=== PATIENT | male | born 1950 | race Caucasian/White ===

== ENCOUNTER 2017-10-27 03:23 | Emergency (ER) | payer MEDICARE, MEDICAID, SELFPAY | END 2017-10-27 04:37 | disposition home or self-care (01) | PROVIDERS: Emergency Provider Emergency Medicine; Visit Provider Emergency Medicine | DX: J40 Bronchitis, not specified as acute or chronic (principal); I10 Essential (primary) hypertension; E11.9 Type 2 diabetes mellitus without complications; Z79.899 Other long term (current) drug therapy | CPT/HCPCS: 87275; 87276; 99282 ==

== ENCOUNTER 2017-12-07 06:25 | Emergency (ER) | payer MEDICARE, SELFPAY ==
[2017-12-07 06:59] VITALS: BP 184/87; PULSE 82; RESP 18; TEMP 36.9; O2SAT 94; BMI 30.4
== END 2017-12-07 07:49 | disposition left against medical advice (07) ==
PROVIDERS: Emergency Provider Emergency Medicine; Family Provider Internal Medicine Adolescent Medicine
DX: Z53.29 Procedure and treatment not carried out because of patient's decision for other reasons (principal)
CPT/HCPCS: 99211; 99282

== ENCOUNTER → 2017-12-18 09:55 | Outpatient (CLI) | payer MEDICARE, SELFPAY ==
[2017-12-18 11:31] LABS: Basophils % 1.2 % (0.1-2.0); Eosinophils # 0.3 K/mm3 (0.0-0.4); Hematocrit 28.9 % (42.0-52.0); Hemoglobin 9.6 g/dL (14.1-18.0); Lymphocytes # 0.7 K/mm3 (0.7-4.5); Lymphocytes % 18.7 K/mm3 (10-50); Mean Corpuscular HGB Conc 33.2 g/dL (31.8-35.4); Mean Corpuscular Hemoglobin 36.7 pg (27.0-31.2); Mean Corpuscular Volume 110.5 fl (80-94); Mean Platelet Volume 8.9 fl (7.4-10.4); Monocytes # 0.3 K/mm3 (0.1-1.0); Monocytes % 9.2 % (1.7-9.3); Neutrophils # 2.2 K/mm3 (1.8-7.8); Neutrophils % 62.9 % (37.0-80.0); Platelet Count 258 K/mm3 (142-424); Red Blood Count 2.61 M/mm3 (4.60-6.20); Red Cell Distribution Width 18.9 % (11.5-17.5); White Blood Count 3.5 K/mm3 (4.8-10.8)
== END ==
PROVIDERS: PCP Internal Medicine Adolescent Medicine; Visit Provider Internal Medicine Hematology & Oncology
DX: D61.818 Other pancytopenia (principal)
CPT/HCPCS: 36415; 85025

== ENCOUNTER → 2018-01-12 11:38 | Outpatient (CLI) | payer MEDICARE, SELFPAY ==
[2018-01-12 12:04] LABS: Basophils % 0.8 % (0.1-2.0); Eosinophils # 0.1 K/mm3 (0.0-0.4); Eosinophils % 3.3 % (0.1-12.0); Hematocrit 30.3 % (42.0-52.0); Hemoglobin 9.9 g/dL (14.1-18.0); Lymphocytes # 0.7 K/mm3 (0.7-4.5); Lymphocytes % 21.2 K/mm3 (10-50); Mean Corpuscular HGB Conc 32.6 g/dL (31.8-35.4); Mean Corpuscular Hemoglobin 36.7 pg (27.0-31.2); Mean Corpuscular Volume 112.8 fl (80-94); Mean Platelet Volume 9.1 fl (7.4-10.4); Monocytes # 0.4 K/mm3 (0.1-1.0); Monocytes % 10.3 % (1.7-9.3); Neutrophils # 2.2 K/mm3 (1.8-7.8); Neutrophils % 64.4 % (37.0-80.0); Platelet Count 277 K/mm3 (142-424); Red Blood Count 2.69 M/mm3 (4.60-6.20); Red Cell Distribution Width 19.1 % (11.5-17.5); White Blood Count 3.4 K/mm3 (4.8-10.8)
== END ==
PROVIDERS: PCP Internal Medicine Adolescent Medicine; Visit Provider Internal Medicine Hematology & Oncology
DX: D61.818 Other pancytopenia (principal)
CPT/HCPCS: 36415; 85025

== ENCOUNTER → 2018-03-02 09:01 | Outpatient (CLI) | payer MEDICARE, SELFPAY ==
[2018-03-02 09:52] LABS: Basophils % 1.4 % (0.1-2.0); Eosinophils # 0.1 K/mm3 (0.0-0.4); Eosinophils % 4.5 % (0.1-12.0); Hematocrit 27.8 % (42.0-52.0); Hemoglobin 9.5 g/dL (14.1-18.0); Lymphocytes # 0.6 K/mm3 (0.7-4.5); Lymphocytes % 20.8 K/mm3 (10-50); Mean Corpuscular HGB Conc 34.2 g/dL (31.8-35.4); Mean Corpuscular Hemoglobin 38.1 pg (27.0-31.2); Mean Corpuscular Volume 111.6 fl (80-94); Mean Platelet Volume 8.4 fl (7.4-10.4); Monocytes # 0.3 K/mm3 (0.1-1.0); Monocytes % 9.7 % (1.7-9.3); Neutrophils # 1.8 K/mm3 (1.8-7.8); Neutrophils % 63.7 % (37.0-80.0); Platelet Count 283 K/mm3 (142-424); Red Cell Distribution Width 19.2 % (11.5-17.5); White Blood Count 2.8 K/mm3 (4.8-10.8)
== END ==
PROVIDERS: Visit Provider Internal Medicine Hematology & Oncology
DX: D61.818 Other pancytopenia (principal)
CPT/HCPCS: 36415; 85025

== ENCOUNTER → 2018-03-17 10:16 | Outpatient (CLI) | payer MEDICARE, SELFPAY ==
[2018-03-17 10:58] LABS: Basophils % 1.6 % (0.1-2.0); Eosinophils # 0.1 K/mm3 (0.0-0.4); Hematocrit 25.1 % (42.0-52.0); Hemoglobin 8.7 g/dL (14.1-18.0); Lymphocytes # 0.5 K/mm3 (0.7-4.5); Lymphocytes % 19.1 K/mm3 (10-50); Mean Corpuscular HGB Conc 34.6 g/dL (31.8-35.4); Mean Corpuscular Hemoglobin 38.2 pg (27.0-31.2); Mean Corpuscular Volume 110.2 fl (80-94); Mean Platelet Volume 8.9 fl (7.4-10.4); Monocytes # 0.3 K/mm3 (0.1-1.0); Neutrophils # 1.8 K/mm3 (1.8-7.8); Neutrophils % 66.2 % (37.0-80.0); Platelet Count 255 K/mm3 (142-424); Red Blood Count 2.28 M/mm3 (4.60-6.20); Red Cell Distribution Width 20.1 % (11.5-17.5); White Blood Count 2.7 K/mm3 (4.8-10.8)
[2018-03-17 12:43] LABS: Alanine Aminotransferase 57 U/L (12-78); Albumin Level 3.6 gm/dL (3.4-5.0); Albumin/Globulin Ratio 1.5 (1.1-1.8); Alkaline Phosphatase 122 U/L (46-116); Aspartate Amino Transferase 40 U/L (15-37); Bilirubin,Total 0.8 mg/dL (0.2-1.0); Blood Urea Nitrogen 11 mg/dL (7-18); Calcium 8.7 mg/dL (8.5-10.1); Carbon Dioxide 29 mmol/L (21.0-32.0); Chol/HDL Ratio 6.1 (1-3.5); Cholesterol 128 mg/dL (140-200); Creatinine,Serum 0.86 mg/dL (0.70-1.30); Estimated Glomerular Filt Rate 89 ml/min (>60); GFR (African American) 107 ML/MIN (>60); Globulin 2.4 gm/dl (1.3-3.2); Glucose 115 mg/dL (74-106); HDL Cholesterol 21 mg/dL (27-67); LDL Cholesterol 62 mg/dL (0-130); Triglycerides 225 mg/dL (30-200); VLDL Cholesterol 45 mg/dL (0-40)
[2018-03-17 13:21] LABS: Anion Gap 12.4 mEq/L (5-15); Chloride 101 mmol/L (98-107); Potassium 4.4 mmoL/L (3.5-5.1); Sodium 138 mmol/L (136-145)
[2018-03-18 13:52] LABS: Vitamin B12 617 pg/mL (232-1245); Vitamin D 25 Hydroxy 18.5 ng/mL (30.0-100.0)
== END ==
PROVIDERS: Visit Provider Nurse Practitioner Family
DX: E53.8 Deficiency of other specified B group vitamins (principal); E78.5 Hyperlipidemia, unspecified; E55.9 Vitamin D deficiency, unspecified; D59.1 Other autoimmune hemolytic anemias; D61.818 Other pancytopenia; I10 Essential (primary) hypertension
CPT/HCPCS: 36415; 80053; 80061; 82607; 82652; 85025

== ENCOUNTER → 2018-03-21 07:19 | Outpatient (CLI) | payer MEDICARE, SELFPAY ==
[2018-03-21 07:59] LABS: Basophils % 1.1 % (0.1-2.0); Eosinophils # 0.2 K/mm3 (0.0-0.4); Eosinophils % 5.8 % (0.1-12.0); Hematocrit 25.7 % (42.0-52.0); Hemoglobin 8.9 g/dL (14.1-18.0); Lymphocytes # 0.5 K/mm3 (0.7-4.5); Mean Corpuscular HGB Conc 34.6 g/dL (31.8-35.4); Mean Corpuscular Hemoglobin 38.5 pg (27.0-31.2); Mean Corpuscular Volume 111.1 fl (80-94); Mean Platelet Volume 8.7 fl (7.4-10.4); Monocytes # 0.2 K/mm3 (0.1-1.0); Monocytes % 9.7 % (1.7-9.3); Neutrophils # 1.6 K/mm3 (1.8-7.8); Neutrophils % 63.5 % (37.0-80.0); Platelet Count 268 K/mm3 (142-424); Red Blood Count 2.32 M/mm3 (4.60-6.20); Red Cell Distribution Width 20.2 % (11.5-17.5); White Blood Count 2.5 K/mm3 (4.8-10.8)
== END ==
PROVIDERS: Visit Provider Internal Medicine Hematology & Oncology
DX: D61.818 Other pancytopenia (principal)
CPT/HCPCS: 36415; 85025

== ENCOUNTER → 2018-03-25 17:02 | Outpatient (CLI) | payer MEDICARE, SELFPAY ==
[2018-03-25 17:25] LABS: Basophils # 0.1 K/mm3 (0-0.2); Basophils % 1.7 % (0.1-2.0); Eosinophils # 0.1 K/mm3 (0.0-0.4); Eosinophils % 3.4 % (0.1-12.0); Hemoglobin 8.4 g/dL (14.1-18.0); Lymphocytes # 0.6 K/mm3 (0.7-4.5); Lymphocytes % 18.5 K/mm3 (10-50); Mean Corpuscular HGB Conc 33.6 g/dL (31.8-35.4); Mean Corpuscular Hemoglobin 37.6 pg (27.0-31.2); Mean Corpuscular Volume 111.8 fl (80-94); Mean Platelet Volume 9.1 fl (7.4-10.4); Monocytes # 0.3 K/mm3 (0.1-1.0); Monocytes % 8.1 % (1.7-9.3); Neutrophils # 2.3 K/mm3 (1.8-7.8); Neutrophils % 68.4 % (37.0-80.0); Platelet Count 252 K/mm3 (142-424); Red Blood Count 2.23 M/mm3 (4.60-6.20); Red Cell Distribution Width 20.2 % (11.5-17.5); White Blood Count 3.3 K/mm3 (4.8-10.8)
[2018-03-25 17:31] LABS: Hematocrit 24.9 % (42.0-52.0)
== END ==
PROVIDERS: Visit Provider Internal Medicine Hematology & Oncology
DX: D61.818 Other pancytopenia (principal)
CPT/HCPCS: 36415; 85025

== ENCOUNTER → 2018-04-18 08:13 | Outpatient (CLI) | payer MEDICARE, SELFPAY ==
[2018-04-18 08:46] LABS: Basophils % 0.9 % (0.1-2.0); Eosinophils # 0.1 K/mm3 (0.0-0.4); Eosinophils % 2.3 % (0.1-12.0); Hematocrit 29.8 % (42.0-52.0); Hemoglobin 9.4 g/dL (14.1-18.0); Lymphocytes # 0.6 K/mm3 (0.7-4.5); Lymphocytes % 14.9 K/mm3 (10-50); Mean Corpuscular HGB Conc 31.4 g/dL (31.8-35.4); Mean Corpuscular Volume 114.7 fl (80-94); Mean Platelet Volume 8.7 fl (7.4-10.4); Monocytes # 0.4 K/mm3 (0.1-1.0); Monocytes % 8.9 % (1.7-9.3); Platelet Count 299 K/mm3 (142-424); Red Cell Distribution Width 20.4 % (11.5-17.5); White Blood Count 4.2 K/mm3 (4.8-10.8)
== END ==
PROVIDERS: Visit Provider Internal Medicine Hematology & Oncology
DX: D61.818 Other pancytopenia (principal)
CPT/HCPCS: 36415; 85025; 85060

== ENCOUNTER → 2018-05-19 10:18 | Outpatient (CLI) | payer MEDICARE, SELFPAY ==
[2018-05-19 10:43] LABS: Basophils # 0.1 K/mm3 (0-0.2); Basophils % 1.6 % (0.1-2.0); Eosinophils # 0.1 K/mm3 (0.0-0.4); Eosinophils % 3.1 % (0.1-12.0); Hematocrit 28.6 % (42.0-52.0); Lymphocytes # 0.5 K/mm3 (0.7-4.5); Mean Corpuscular HGB Conc 31.5 g/dL (31.8-35.4); Mean Corpuscular Hemoglobin 36.3 pg (27.0-31.2); Mean Corpuscular Volume 115.3 fl (80-94); Mean Platelet Volume 9.2 fl (7.4-10.4); Monocytes # 0.3 K/mm3 (0.1-1.0); Monocytes % 11.2 % (1.7-9.3); Neutrophils # 1.9 K/mm3 (1.8-7.8); Neutrophils % 66.1 % (37.0-80.0); Platelet Count 277 K/mm3 (142-424); Red Blood Count 2.48 M/mm3 (4.60-6.20); Red Cell Distribution Width 19.7 % (11.5-17.5); White Blood Count 2.9 K/mm3 (4.8-10.8)
== END ==
PROVIDERS: Visit Provider Internal Medicine Hematology & Oncology
DX: D61.818 Other pancytopenia (principal)
CPT/HCPCS: 36415; 85025

== ENCOUNTER → 2018-05-30 08:18 | Outpatient (CLI) | payer MEDICARE, SELFPAY ==
[2018-05-30 08:52] LABS: Basophils % 1.1 % (0.1-2.0); Eosinophils # 0.1 K/mm3 (0.0-0.4); Eosinophils % 4.3 % (0.1-12.0); Hematocrit 26.3 % (42.0-52.0); Hemoglobin 8.7 g/dL (14.1-18.0); Lymphocytes # 0.5 K/mm3 (0.7-4.5); Lymphocytes % 18.2 K/mm3 (10-50); Mean Corpuscular HGB Conc 33.2 g/dL (31.8-35.4); Mean Corpuscular Hemoglobin 37.9 pg (27.0-31.2); Mean Corpuscular Volume 113.9 fl (80-94); Mean Platelet Volume 8.3 fl (7.4-10.4); Monocytes # 0.3 K/mm3 (0.1-1.0); Monocytes % 11.2 % (1.7-9.3); Neutrophils # 1.9 K/mm3 (1.8-7.8); Neutrophils % 65.1 % (37.0-80.0); Platelet Count 280 K/mm3 (142-424); Red Blood Count 2.31 M/mm3 (4.60-6.20); Red Cell Distribution Width 20.7 % (11.5-17.5); White Blood Count 2.9 K/mm3 (4.8-10.8)
== END ==
PROVIDERS: Visit Provider Internal Medicine Hematology & Oncology
DX: D61.818 Other pancytopenia (principal)
CPT/HCPCS: 36415; 85025

== ENCOUNTER → 2018-06-06 13:32 | Outpatient (CLI) | payer MEDICARE, SELFPAY ==
[2018-06-06 14:02] LABS: Basophils # 0.1 K/mm3 (0-0.2); Basophils % 1.6 % (0.1-2.0); Eosinophils # 0.1 K/mm3 (0.0-0.4); Eosinophils % 2.5 % (0.1-12.0); Hematocrit 25.2 % (42.0-52.0); Hemoglobin 8.3 g/dL (14.1-18.0); Lymphocytes # 0.6 K/mm3 (0.7-4.5); Lymphocytes % 18.4 K/mm3 (10-50); Mean Corpuscular HGB Conc 33.2 g/dL (31.8-35.4); Mean Corpuscular Hemoglobin 38.5 pg (27.0-31.2); Mean Corpuscular Volume 116.1 fl (80-94); Mean Platelet Volume 8.9 fl (7.4-10.4); Monocytes # 0.4 K/mm3 (0.1-1.0); Monocytes % 12.2 % (1.7-9.3); Neutrophils # 2.1 K/mm3 (1.8-7.8); Neutrophils % 65.4 % (37.0-80.0); Platelet Count 250 K/mm3 (142-424); Red Blood Count 2.17 M/mm3 (4.60-6.20); Red Cell Distribution Width 20.5 % (11.5-17.5); White Blood Count 3.2 K/mm3 (4.8-10.8)
== END ==
PROVIDERS: Visit Provider Internal Medicine Hematology & Oncology
DX: D46.20 Refractory anemia with excess of blasts, unspecified (principal); D61.818 Other pancytopenia
CPT/HCPCS: 36415; 85025

== ENCOUNTER → 2018-06-08 10:54 | Outpatient (CLI) | payer MEDICARE, SELFPAY ==
[2018-06-08 11:35] LABS: Eosinophils # 0.1 K/mm3 (0.0-0.4); Eosinophils % 3.7 % (0.1-12.0); Hematocrit 26.5 % (42.0-52.0); Hemoglobin 8.7 g/dL (14.1-18.0); Lymphocytes # 0.4 K/mm3 (0.7-4.5); Lymphocytes % 17.4 K/mm3 (10-50); Mean Corpuscular HGB Conc 32.9 g/dL (31.8-35.4); Mean Corpuscular Volume 115.4 fl (80-94); Mean Platelet Volume 8.8 fl (7.4-10.4); Monocytes # 0.3 K/mm3 (0.1-1.0); Neutrophils # 1.7 K/mm3 (1.8-7.8); Neutrophils % 67.9 % (37.0-80.0); Platelet Count 235 K/mm3 (142-424); Red Cell Distribution Width 20.6 % (11.5-17.5); White Blood Count 2.5 K/mm3 (4.8-10.8)
[2018-06-08 14:26] LABS: Hemoglobin A1C 4.9 % (0.0-7.0)
[2018-06-08 14:45] LABS: Alanine Aminotransferase 49 U/L (12-78); Albumin Level 3.7 gm/dL (3.4-5.0); Albumin/Globulin Ratio 1.5 (1.1-1.8); Alkaline Phosphatase 128 U/L (46-116); Anion Gap 9.7 mEq/L (5-15); Aspartate Amino Transferase 31 U/L (15-37); Bilirubin,Total 0.8 mg/dL (0.2-1.0); Blood Urea Nitrogen 7 mg/dL (7-18); Calcium 8.3 mg/dL (8.5-10.1); Carbon Dioxide 28 mmol/L (21.0-32.0); Chloride 107 mmol/L (98-107); Chol/HDL Ratio 5.8 (1-3.5); Cholesterol 121 mg/dL (140-200); Creatinine,Serum 0.96 mg/dL (0.70-1.30); Estimated Glomerular Filt Rate 78 ml/min (>60); GFR (African American) 95 ML/MIN (>60); Globulin 2.4 gm/dl (1.3-3.2); Glucose 118 mg/dL (74-106); HDL Cholesterol 21 mg/dL (27-67); LDL Cholesterol 58 mg/dL (0-130); Potassium 4.7 mmoL/L (3.5-5.1); Sodium 140 mmol/L (136-145); Total Protein,Serum 6.1 gm/dL (6.4-8.2); Triglycerides 209 mg/dL (30-200); VLDL Cholesterol 42 mg/dL (0-40)
[2018-06-09 16:43] LABS: Vitamin B12 543 pg/mL (232-1245); Vitamin D 25 Hydroxy 25.4 ng/mL (30.0-100.0)
== END ==
PROVIDERS: Visit Provider Internal Medicine Adolescent Medicine
DX: D61.818 Other pancytopenia (principal); E78.5 Hyperlipidemia, unspecified; E11.9 Type 2 diabetes mellitus without complications; E53.8 Deficiency of other specified B group vitamins; D59.1 Other autoimmune hemolytic anemias
CPT/HCPCS: 36415; 80053; 80061; 82607; 82652; 83036; 85025

== ENCOUNTER → 2018-06-15 10:09 | Outpatient (CLI) | payer MEDICARE, SELFPAY ==
[2018-06-15 10:58] LABS: Eosinophils # 0.1 K/mm3 (0.0-0.4); Eosinophils % 2.9 % (0.1-12.0); Hematocrit 26.4 % (42.0-52.0); Hemoglobin 8.6 g/dL (14.1-18.0); Lymphocytes # 0.6 K/mm3 (0.7-4.5); Lymphocytes % 18.7 K/mm3 (10-50); Mean Corpuscular HGB Conc 32.7 g/dL (31.8-35.4); Mean Corpuscular Hemoglobin 38.2 pg (27.0-31.2); Mean Corpuscular Volume 116.9 fl (80-94); Mean Platelet Volume 8.4 fl (7.4-10.4); Monocytes # 0.4 K/mm3 (0.1-1.0); Neutrophils % 65.4 % (37.0-80.0); Platelet Count 279 K/mm3 (142-424); Red Blood Count 2.26 M/mm3 (4.60-6.20); Red Cell Distribution Width 20.9 % (11.5-17.5); White Blood Count 3.1 K/mm3 (4.8-10.8)
== END ==
PROVIDERS: Visit Provider Internal Medicine Hematology & Oncology
DX: D61.818 Other pancytopenia (principal)
CPT/HCPCS: 36415; 85025

== ENCOUNTER → 2018-06-29 12:12 | Outpatient (CLI) | payer MEDICARE, SELFPAY ==
[2018-06-29 12:37] LABS: Basophils % 0.1 % (0.1-2.0); Eosinophils % 0.3 % (0.1-12.0); Hematocrit 36.2 % (42.0-52.0); Hemoglobin 11.4 g/dL (14.1-18.0); Lymphocytes # 0.2 K/mm3 (0.7-4.5); Lymphocytes % 2.5 K/mm3 (10-50); Mean Corpuscular HGB Conc 31.5 g/dL (31.8-35.4); Mean Corpuscular Hemoglobin 38.6 pg (27.0-31.2); Mean Corpuscular Volume 122.5 fl (80-94); Mean Platelet Volume 7.5 fl (7.4-10.4); Monocytes # 0.3 K/mm3 (0.1-1.0); Monocytes % 3.6 % (1.7-9.3); Neutrophils # 7.5 K/mm3 (1.8-7.8); Neutrophils % 93.5 % (37.0-80.0); Platelet Count 265 K/mm3 (142-424); Red Blood Count 2.95 M/mm3 (4.60-6.20); Red Cell Distribution Width 19.8 % (11.5-17.5)
[2018-06-29 12:41] LABS: MANUAL DIFFERENTIAL MANUAL DIFFERENTIAL (MANUAL DIFF)
[2018-06-29 14:35] LABS: Monocytes % 4 % (2-9); Neutrophils % 96 % (42-76); Total Cells Counted 100
[2018-06-29 14:37] LABS: Platelet Estimate Normal
[2018-06-29 14:38] LABS: Stomatocytes 1+
[2018-06-29 14:39] LABS: Tear Drop Cells 1+
[2018-06-29 14:47] LABS: Anisocytosis 1+; Macrocytosis 3+
== END ==
PROVIDERS: Visit Provider Internal Medicine Hematology & Oncology
DX: D61.818 Other pancytopenia (principal)
CPT/HCPCS: 36415; 85007; 85025

== ENCOUNTER → 2018-07-22 09:53 | Outpatient (CLI) | payer MEDICARE, SELFPAY ==
[2018-07-22 10:45] LABS: Basophils % 1.2 % (0.1-2.0); Eosinophils # 0.1 K/mm3 (0.0-0.4); Eosinophils % 1.9 % (0.1-12.0); Hematocrit 27.1 % (42.0-52.0); Hemoglobin 8.9 g/dL (14.1-18.0); Lymphocytes # 0.6 K/mm3 (0.7-4.5); Lymphocytes % 17.8 K/mm3 (10-50); Mean Corpuscular HGB Conc 32.9 g/dL (31.8-35.4); Mean Corpuscular Hemoglobin 35.5 pg (27.0-31.2); Mean Corpuscular Volume 107.9 fl (80-94); Mean Platelet Volume 8.9 fl (7.4-10.4); Monocytes # 0.4 K/mm3 (0.1-1.0); Monocytes % 12.7 % (1.7-9.3); Neutrophils # 2.2 K/mm3 (1.8-7.8); Neutrophils % 66.4 % (37.0-80.0); Platelet Count 330 K/mm3 (142-424); Red Blood Count 2.51 M/mm3 (4.60-6.20); Red Cell Distribution Width 17.4 % (11.5-17.5); White Blood Count 3.4 K/mm3 (4.8-10.8)
== END ==
PROVIDERS: PCP Internal Medicine Adolescent Medicine; Visit Provider Internal Medicine Hematology & Oncology
DX: D61.818 Other pancytopenia (principal)
CPT/HCPCS: 36415; 85025

== ENCOUNTER 2018-07-24 16:11 | Observation (INO) ==
[2018-07-24 16:44] LABS: Basophils % 1.3 % (0.1-2.0); Eosinophils # 0.1 K/mm3 (0.0-0.4); Eosinophils % 2.3 % (0.1-12.0); Hemoglobin 8.1 g/dL (14.1-18.0); Lymphocytes # 0.7 K/mm3 (0.7-4.5); Lymphocytes % 19.6 K/mm3 (10-50); Mean Corpuscular Hemoglobin 36.3 pg (27.0-31.2); Mean Corpuscular Volume 106.7 fl (80-94); Mean Platelet Volume 9.4 fl (7.4-10.4); Monocytes # 0.4 K/mm3 (0.1-1.0); Neutrophils # 2.2 K/mm3 (1.8-7.8); Neutrophils % 64.8 % (37.0-80.0); Platelet Count 316 K/mm3 (142-424); Red Blood Count 2.24 M/mm3 (4.60-6.20); Red Cell Distribution Width 17.5 % (11.5-17.5); White Blood Count 3.4 K/mm3 (4.8-10.8)
[2018-07-24 16:52] LABS: Hematocrit 23.9 % (42.0-52.0)
[2018-07-24 16:56] LABS: Alanine Aminotransferase 72 U/L (12-78); Albumin Level 3.6 gm/dL (3.4-5.0); Albumin/Globulin Ratio 1.4 (1.1-1.8); Alkaline Phosphatase 195 U/L (46-116); Anion Gap 10.1 mEq/L (5-15); Aspartate Amino Transferase 37 U/L (15-37); Bilirubin,Total 0.7 mg/dL (0.2-1.0); Blood Urea Nitrogen 16 mg/dL (7-18); Calcium 8.3 mg/dL (8.5-10.1); Carbon Dioxide 28 mmol/L (21.0-32.0); Chloride 108 mmol/L (98-107); Globulin 2.5 gm/dl (1.3-3.2); Glucose 119 mg/dL (74-106); Potassium 4.1 mmoL/L (3.5-5.1); Sodium 142 mmol/L (136-145); Total Protein,Serum 6.1 gm/dL (6.4-8.2)
--- NOTE | 2018-07-24 19:03 | Emergency Department Note ---
ED Disposition Clinical Impression: New onset atrial fibrillation Anemia Qualifiers: Anemia type: unspecified type Qualified Code(s): D64.9 - Anemia, unspecified Disposition: Still a Patient Condition on Discharge: Fair Referrals: Aron Cabrera MD [Primary Care Provider] - - Critical Care Critical Care Time: No Attestation: On 07/24/18, the high probability of a clinically significant, sudden or life threatening deterioration of the following system(s) required my full and direct attention, intervention and personal management. The time I documented below is in addition to time spent performing reported procedures but includes the following listed in this critical care notation. Medical Decision Making - Benny Inquiry Pt receiving controlled substance: No Vital Signs: 07/24/18 16:18 07/24/18 17:12 07/24/18 17:30 Temperature 98.7 F Temperature Source Oral Pulse Rate [Left Brachial] 110 H 103 H 106 H Respiratory Rate 18 16 16 Blood Pressure [Left Arm] 148/69 136/63 131/75 Blood Pressure Mean [Left Arm] 95 87 93 Blood Pressure Source [Left Arm] Automatic Cuff Automatic Cuff Automatic Cuff Blood Pressure Position [Left Arm] Sitting Sitting Sitting 02 Sat by Pulse Oximetry 98 96 98 Oxygen Delivery Method Room Air Room Air Room Air 07/24/18 18:30 07/24/18 20:13 Temperature Temperature Source Pulse Rate [Left Brachial] 92 H 95 H Respiratory Rate 18 20 Blood Pressure [Left Arm] 154/87 166/106 Blood Pressure Mean [Left Arm] 109 126 Blood Pressure Source [Left Arm] Automatic Cuff Blood Pressure Position [Left Arm] Sitting 02 Sat by Pulse Oximetry 100 96 Oxygen Delivery Method Room Air Room Air - Lab Data Lab Results 07/24/18 16:35: WBC 3.4 L, RBC 2.24 L, Hgb 8.1 L, Hct 23.9 L*, MCV 106.7 H, MCH 36.3 H, MCHC 34.0, RDW 17.5, Plt Count 316, MPV 9.4, Neut % (Auto) 64.8, Lymph % (Auto) 19.6, [place] % (Auto) 12.0 H, Eos % (Auto) 2.3, Baso % (Auto) 1.3, Neut # (Auto) 2.2, Lymph # (Auto) 0.7, [place] # (Auto) 0.4, Eos # (Auto) 0.1, Baso # (Auto) 0.0 07/24/18 16:35: Sodium 142, Potassium 4.1, Chloride 108 H, Carbon Dioxide 28, Anion Gap 10.1, BUN 16, Creatinine 1.02, Estimated Creat Clear 76, Estimated GFR 73, Est GFR ( Amer) 88, Glucose 119 H, Calcium 8.3 L, Total Bilirubin 0.7, AST 37, ALT 72, Alkaline Phosphatase 195 H, Troponin I < 0.02, Total Protein 6.1 L, Albumin 3.6, Globulin 2.5, Albumin/Globulin Ratio 1.4 Result diagrams: 07/24/18 16:35 07/24/18 16:35 Orders (Tests/Meds): ORDERS Category Date Time Status PT/PTT Stat Lab 07/24/18 16:35 Received 12-lead EKG Request [ECG Request by /Shayy] Stat Y 07/24/18 20:11 Ordered - Radiology Data #1 Image(s): Chest Image Reviewed: Yes I have reviewed radiologist's interpretation Cardiomegaly, mild chronic CHF - ECG Data Tracing #1 I reviewed this ECG and interpreted as documented below: EKG interpreted by Maxi King MD: Rhythm: Atrial fibrillation Rate: 109 [place]: Left Ectopy: none Conduction: normal ST Segment Changes: Nonspecific T Wave Changes: Nonspecific Q Waves: none No evidence of acute ischemia or injury LVH Tracing #2 EKG #2 interpreted by Maxi King MD: Rhythm: sinus Rate: 95 [place]: Left Ectopy: Premature ventricular contractions Conduction: normal ST Segment Changes: Nonspecific T Wave Changes: Nonspecific Q Waves: none No evidence of acute ischemia or injury - Physician Consults Physician Consulted: Nicholas Cabrera Time: 17:45 Reason -: Admission Comment/Response: Agrees to admit the patient to the hospital. We discussed the patient's clinical information, including history, exam, laboratory and radiology results and ED course. Per hospital procedure, I will write temporary bridge inpatient orders on the patient. Specific orders requested by the admitting physician: Cardizem, oral if heart rate only mildly elevated, intravenous otherwise. Transfuse 1 unit packed red cells. Medical Decision Narrative: Reviewed prior EKGs. Last EKG performed here was 2014. EKGs show sinus rhythm. I do not see any that show atrial fibrillation. I discussed this with the patient, he does not recall ever being told that he is ago fibrillation. Prior ER visits reviewed, medications included lisinopril and lorazepam. Patient says that those are his only 2 medications currently. It does not appear that he has had atrial fibrillation in the past. 8:05 PM: Patient moved to cardiac room. Placed on manager cardiac. Normal sinus rhythm. Atrial fibrillation appears to have converted spontaneously. General Adult HPI - General Chief complaint: Weakness Stated complaint: Weakness Time Seen by Provider: 07/24/18 19:03 Mode of Arrival: Ambulatory Limitations: No Limitations Description of Symptoms (Recalled from ER Triage Doc. by RN): Pt reports ENG x3 days, pt reports has been feeling weak and like hes low on blood, states he has a hx of anemia - History of Present Illness HPI narrative: Raghu is a very poor historian. Chief complaint to me is that he feels short of breath with exertion and dizzy, lightheaded for 3 days. Denies chest pain, denies headache. Reported to the nurse that he might be low on blood. Patient indicates to me that he has been diagnosed with anemia for some time. He sees Dr. Elizondo, network systems engineer in [place]. States that he is not on iron. He states that the network systems engineer wanted him on steroids, but there to powerful and he does not take them. He is not certain of the cause of his anemia. He says he is not losing blood. He has had a workup including gastrointestinal scoping which has been negative. He has not had a transfusion anytime recently, says he had one years ago. - Related Data Allergies Allergy/AdvReac Type Severity Reaction Status Date / Time codeine [CODEINE] Allergy Unknown I-RASH Verified 12/07/17 07:09 [facility] History I have reviewed the patient's past medical history: Yes Medical History: Denies:: Cancer, Diabetes Mellitus Type 1, Diabetes Mellitus Type 2, MRSA Amputation: No Fractures: No - Social History Smoking Status: Never smoker Alcohol Intake: never - Psychiatric History Expresses thoughts of harming self/others: None Suicide Plan Description: No Plan ROS Obtained: Yes All systems reviewed & no additional complaints - Constitutional Constitutional: Reports fatigue - Cardiovascular Cardiovascular: Denies chest pain - Respiratory Respiratory: No cough, Yes dyspnea on exertion - Gastrointestinal Gastrointestingal: Denies: nausea, vomiting - Neurologic Neurologic: Denies headache(s), Denies numbness, Reports weakness (Arms and legs) Physical Exam - General General appearance: alert, in no apparent distress Comment: Ambulatory - Head Head exam: atraumatic, normocephalic, normal inspection - Eye Eye exam: Present: normal appearance, PERRL, EOMI - ENT ENT exam: Present: mucous membranes moist - Neck Neck exam: Present: normal inspection, full ROM, trachea midline. Absent: meningismus, lymphadenopathy - Chest Chest inspection: Present: normal inspection, symmetric chest wall rise. Absent: tenderness - Respiratory Respiratory exam: Present: normal lung sounds bilaterally. Absent: respiratory distress - Cardiovascular Cardiovascular exam: Present: tachycardia, irregular rhythm. Absent: JVD - Abdominal Exam Abdominal exam: Present: soft, normal bowel sounds. Absent: distention, tenderness, guarding - Extremities Exam Extremities exam: Present: normal inspection, full ROM, normal capillary refill. Absent: calf tenderness - Neurological Exam Neurological exam: Present: alert, oriented X3 - Psychiatric Psychiatric exam: Present: normal affect, normal mood - Skin Skin exam: Present: warm, dry, intact, normal color
[2018-07-24 20:16] LABS: Activated Partial Thrombo Time 31.2 seconds (23.6-34.0); INR 1.11 (0.9-1.1); Prothrombin Time 11.4 seconds (9.4-11.8)
[2018-07-24 21:31] LABS: Free Thyroxine Index 3.3 ug/dL (5.93-13.13); T4 (Thyroxine) 10.2 ug/dl (4.7-13.3); Thyroid Stimulating Hormone 3.48 uIU/ml (0.358-3.740)
[2018-07-25 06:30] LABS: Basophils % 1.1 % (0.1-2.0); Eosinophils # 0.1 K/mm3 (0.0-0.4); Eosinophils % 2.3 % (0.1-12.0); Hemoglobin 8.3 g/dL (14.1-18.0); Lymphocytes # 0.6 K/mm3 (0.7-4.5); Lymphocytes % 20.5 K/mm3 (10-50); Mean Corpuscular HGB Conc 33.2 g/dL (31.8-35.4); Mean Corpuscular Hemoglobin 34.1 pg (27.0-31.2); Mean Platelet Volume 9.3 fl (7.4-10.4); Monocytes # 0.4 K/mm3 (0.1-1.0); Monocytes % 13.1 % (1.7-9.3); Neutrophils # 1.9 K/mm3 (1.8-7.8); Platelet Count 253 K/mm3 (142-424); Red Blood Count 2.43 M/mm3 (4.60-6.20)
--- NOTE | 2018-07-25 07:52 | Pharmacy Consult Notes ---
[facility] Pharmacy VTE Monitoring - Patient Demographics Admission date: 07/24/18 Report Date: 07/25/18 Time: 07:52 Allergies/Adverse Reactions: Patient Allergies codeine [CODEINE] Allergy (Unknown, Verified 12/07/17 07:09) I-RASH Height: 1.63 m Weight: 76.657 kg Patient Problems: Current Active Problems New onset atrial fibrillation (Acute) Anemia (Acute) - VTE Risk Labs: VTE Related Lab Results Hgb 8.3 g/dL (14.1-18.0) L 07/25/18 06:03 Hct 25.0 % (42.0-52.0) L 07/25/18 06:03 Plt Count 253 K/mm3 (142-424) 07/25/18 06:03 PT 11.4 seconds (9.4-11.8) 07/24/18 16:35 INR 1.11 (0.9-1.1) H 07/24/18 16:35 APTT 31.2 seconds (23.6-34.0) 07/24/18 16:35 BUN 16 mg/dL (7-18) 07/24/18 16:35 Creatinine 1.02 mg/dL (0.70-1.30) 07/24/18 16:35 Estimated Creat Clear 76 mL/min (0-300) 07/24/18 16:35 Was VTE Risk Assessment Performed: Yes VTE Score: 3 VTE Risk Level: Low Risk - Prophylaxis VTE Prophylaxis Ordered?: Yes Types of VTE Prophylaxis: TEDS Knee High Location of Applied Device: Bilateral Lower Extremeties - VTE Diagnosis Confirmed Treatment or plan recommended: Continue Current Treatment
--- NOTE | 2018-08-18 13:20 | H&P/Discharge Summary ---
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 His sausage grinder in [place] a couple of years ago has put him on prednisone intermittently which essentially resolved his anemia but patient has refused to take prednisone as directed because "it is too strong for me." He has had multiple GI workups for blood loss which have been repetitively negative. He came to the emergency department late yesterday evening with vague complaints of shortness of air and fatigue, was found to be anemic with hemoglobin of 8.3 g, and reportedly with a rapid heart rate. Was admitted overnight for observation. And I have seen him this morning. He feels better this morning and wishes to go home. [facility] History I have reviewed the patient's past medical history: Yes Medical History: Denies:: Cancer, Diabetes Mellitus Type 1, Diabetes Mellitus Type 2, MRSA Other Medical History: Reports: Anemia (Hemolytic anemia, prednisone responsive, GI workup negative) Laterality Cases: Bilateral: Other Other Surgeries: Yes: Other (?SX BOTH LEGS, AND L ARM) Amputation: No Fractures: No - *Social History Educational Level: Attended High School Smoking Status: Never smoker Alcohol Intake: current Alcohol Intake Frequency:: holidays/special occasions only Occupational Status: retired Housing: apartment - Psychiatric History Expresses thoughts of harming self/others: None Suicide Plan Description: No Plan *Family Hx:: Unable to obtain Review of Systems - Review of Systems Review of systems:: pertinent systems reviewed and negative unless documented below Review of systems is fairly unreliable because of patient's poor history. - *Neurologic Reports weakness (Arms and legs), Denies headache(s), Denies numbness Exam Vital signs and Labs for Last 24 Hours: Temp Pulse Resp BP Pulse Ox 98.3 F 92 H 19 131/78 97 07/25/18 06:00 07/25/18 06:00 07/25/18 06:00 07/25/18 06:00 07/25/18 06:00 Laboratory Results - last 24 hr 07/24/18 16:35: WBC 3.4 L, RBC 2.24 L, Hgb 8.1 L, Hct 23.9 L*, MCV 106.7 H, MCH 36.3 H, MCHC 34.0, RDW 17.5, Plt Count 316, MPV 9.4, Neut % (Auto) 64.8, Lymph % (Auto) 19.6, [place] % (Auto) 12.0 H, Eos % (Auto) 2.3, Baso % (Auto) 1.3, Neut # (Auto) 2.2, Lymph # (Auto) 0.7, [place] # (Auto) 0.4, Eos # (Auto) 0.1, Baso # (Auto) 0.0 07/24/18 16:35: Sodium 142, Potassium 4.1, Chloride 108 H, Carbon Dioxide 28, Anion Gap 10.1, BUN 16, Creatinine 1.02, Estimated Creat Clear 76, Estimated GFR 73, Est GFR ( Amer) 88, Glucose 119 H, Calcium 8.3 L, Total Bilirubin 0.7, AST 37, ALT 72, Alkaline Phosphatase 195 H, Troponin I < 0.02, Total Protein 6.1 L, Albumin 3.6, Globulin 2.5, Albumin/Globulin Ratio 1.4 07/24/18 16:35: PT 11.4, INR 1.11 H, APTT 31.2 07/24/18 16:35: TSH 3.48, Free T4 Index 3.3 L, Thyroxine (T4) 10.2, T3 Uptake 32 07/24/18 22:00: Blood Type O Positive, Antibody Screen Negative, Crossmatch (AHG) See Detail 07/24/18 22:00: Troponin I < 0.02 07/25/18 03:00: Troponin I < 0.02 07/25/18 06:03: WBC 3.0 L, RBC 2.43 L, Hgb 8.3 L, Hct 25.0 L, MCV 103.0 H, MCH 34.1 H, MCHC 33.2, RDW 19.0 H, Plt Count 253, MPV 9.3, Neut % (Auto) 63.0, Lymph % (Auto) 20.5, [place] % (Auto) 13.1 H, Eos % (Auto) 2.3, Baso % (Auto) 1.1, Neut # (Auto) 1.9, Lymph # (Auto) 0.6 L, [place] # (Auto) 0.4, Eos # (Auto) 0.1, Baso # (Auto) 0.0 I & O for Last 24 hours: Intake & Output 07/22/18 07/23/18 07/24/18 07/25/18 11:59 11:59 11:59 11:59 Intake Total 300 / 300 Balance 300 / 300 Weight 169 lb Narrative: Patient's alert. Pleasant deeply tanned. No JVD. Pharynx clear. Heart rate irregular, rate mid 80s. Lungs have good air movement, no edema or clubbing. Abdomen soft and nontender. Neurologic exam intact. Hospital Course Hospital Course: Patient was admitted overnight. Laboratory studies are the same this morning with the same degree of anemia. Patient has chronic anemia and this is at his baseline. I do not believe patient needs transfused. Patient wishes to be discharged home and I think is reasonable. I will send him home on p.o. Cardizem. He will follow-up with me in the office in 2 days. We will obtain an outpatient echocardiogram and evaluate treatment for atrial fibrillation in an ongoing way as an outpatient Results Labs on day of discharge: Labs from last 24 hours 07/25/18 07/25/18 07/24/18 06:03 03:00 22:00 WBC 3.0 L RBC 2.43 L Hgb 8.3 L Hct 25.0 L MCV 103.0 H MCH 34.1 H MCHC 33.2 RDW 19.0 H Plt Count 253 MPV 9.3 Neut % (Auto) 63.0 Lymph % (Auto) 20.5 [place] % (Auto) 13.1 H Eos % (Auto) 2.3 Baso % (Auto) 1.1 Neut # (Auto) 1.9 Lymph # (Auto) 0.6 L [place] # (Auto) 0.4 Eos # (Auto) 0.1 Baso # (Auto) 0.0 PT INR APTT Sodium Potassium Chloride Carbon Dioxide Anion Gap BUN Creatinine Estimated Creat Clear Estimated GFR Est GFR ( Amer) Glucose Calcium Total Bilirubin AST ALT Alkaline Phosphatase Troponin I < 0.02 < 0.02 Total Protein Albumin Globulin Albumin/Globulin Ratio TSH Free T4 Index Thyroxine (T4) T3 Uptake Blood Type Antibody Screen Crossmatch (AHG) 09/16/18 09/16/18 09/16/18 22:00 16:35 16:35 WBC RBC Hgb Hct MCV MCH MCHC RDW Plt Count MPV Neut % (Auto) Lymph % (Auto) [place] % (Auto) Eos % (Auto) Baso % (Auto) Neut # (Auto) Lymph # (Auto) [place] # (Auto) Eos # (Auto) Baso # (Auto) PT 11.4 INR 1.11 H APTT 31.2 Sodium Potassium Chloride Carbon Dioxide Anion Gap BUN Creatinine Estimated Creat Clear Estimated GFR Est GFR ( Amer) Glucose Calcium Total Bilirubin AST ALT Alkaline Phosphatase Troponin I Total Protein Albumin Globulin Albumin/Globulin Ratio TSH 3.48 Free T4 Index 3.3 L Thyroxine (T4) 10.2 T3 Uptake 32 Blood Type O Positive Antibody Screen Negative Crossmatch ([facility]) See Detail 07/24/18 07/24/18 16:35 16:35 WBC 3.4 L RBC 2.24 L Hgb 8.1 L Hct 23.9 L* MCV 106.7 H MCH 36.3 H MCHC 34.0 RDW 17.5 Plt Count 316 MPV 9.4 Neut % (Auto) 64.8 Lymph % (Auto) 19.6 [place] % (Auto) 12.0 H Eos % (Auto) 2.3 Baso % (Auto) 1.3 Neut # (Auto) 2.2 Lymph # (Auto) 0.7 [place] # (Auto) 0.4 Eos # (Auto) 0.1 Baso # (Auto) 0.0 PT INR APTT Sodium 142 Potassium 4.1 Chloride 108 H Carbon Dioxide 28 Anion Gap 10.1 BUN 16 Creatinine 1.02 Estimated Creat Clear 76 Estimated GFR 73 Est GFR ( Amer) 88 Glucose 119 H Calcium 8.3 L Total Bilirubin 0.7 AST 37 ALT 72 Alkaline Phosphatase 195 H Troponin I < 0.02 Total Protein 6.1 L Albumin 3.6 Globulin 2.5 Albumin/Globulin Ratio 1.4 TSH Free T4 Index Thyroxine (T4) T3 Uptake Blood Type Antibody Screen Crossmatch (G) DS: Diagnosis - Discharge Diagnosis (1) Chronic hemolytic anemia Status: Chronic (2) New onset atrial fibrillation Status: Acute
== END 2018-07-25 09:50 | disposition home or self-care (01) ==
LOC: ER 16:11 → 2ND 16:11
PROVIDERS: ADMIT Family Medicine; ATTEND Internal Medicine Adolescent Medicine

== ENCOUNTER 2018-08-23 06:58 | Inpatient (IN) ==
--- NOTE | 2018-08-23 07:36 | Emergency Department Note ---
ED Disposition Clinical Impression: CAP (community acquired pneumonia) Qualifiers: Laterality: right Lung location: lower lobe of lung Qualified Code(s): J18.1 - Lobar pneumonia, unspecified organism Atrial flutter Qualifiers: Atrial flutter type: unspecified Qualified Code(s): I48.92 - Unspecified atrial flutter Anemia Qualifiers: Anemia type: unspecified type Qualified Code(s): D64.9 - Anemia, unspecified Disposition: Admitted As Inpatient Condition on Discharge: Good Referrals: Aron Cabrera MD [Primary Care Provider] - - Critical Care Critical Care Time: No Attestation: On , the high probability of a clinically significant, sudden or life threatening deterioration of the following system(s) required my full and direct attention, intervention and personal management. The time I documented below is in addition to time spent performing reported procedures but includes the following listed in this critical care notation. Medical Decision Making - Medical Records Medical records reviewed: Yes: I reviewed the patient's medical records. - Benny Inquiry Pt receiving controlled substance: No Vital Signs: 08/23/18 07:06 08/23/18 07:27 08/23/18 07:59 Temperature 97.4 F L Temperature Source Oral Pulse Rate [Right Brachial] 144 H 145 H 145 H Respiratory Rate 20 Blood Pressure [Right Arm] 154/98 H 154/98 H 133/84 Blood Pressure Mean [Right Arm] 116 116 100 Blood Pressure Source [Right Arm] Automatic Cuff Automatic Cuff Automatic Cuff Blood Pressure Position [Right Arm] Sitting Sitting Sitting 02 Sat by Pulse Oximetry 98 99 99 Oxygen Delivery Method Room Air Room Air Room Air - Lab Data Lab results reviewed: Yes: I reviewed the patient's lab results. Lab Results 08/23/18 07:28: WBC 4.9, RBC 3.15 L, Hgb 10.7 L, Hct 34.1 L, MCV 108.3 H, MCH 34.1 H, MCHC 31.5 L, RDW 21.8 H, Plt Count 319, MPV 9.0, Neut % (Auto) 75.4, Lymph % (Auto) 14.0, [place] % (Auto) 7.7, Eos % (Auto) 1.6, Baso % (Auto) 1.2, Neut # (Auto) 3.7, Lymph # (Auto) 0.7, [place] # (Auto) 0.4, Eos # (Auto) 0.1, Baso # (Auto) 0.1 08/23/18 07:28: Troponin I < 0.02 08/23/18 07:28: Lactate 1.8 Result diagrams: 08/23/18 07:28 Orders (Tests/Meds): ED MEDICATIONS Generic Name Dose Route Start Last Admin Trade Name Freq PRN Reason Stop Dose Admin Diltiazem HCl 100 mg/ Sodium 100 mls @ 10 mls/hr 08/23/18 08:00 Chloride IV 09/22/18 07:59 .Q10H BRIANNA Protocol 10 MG/HR Ceftriaxone Sodium 1 gm/ 50 mls @ 100 mls/hr 08/23/18 08:00 Sodium Chloride IV 09/06/18 07:59 Q24H BRIANNA Protocol Azithromycin 500 mg/ Sodium 250 mls @ 250 mls/hr 08/23/18 08:00 Chloride IV 09/06/18 07:59 Q24H BRIANNA Protocol Discontinued Medications Generic Name Dose Route Start Last Admin Trade Name Freq PRN Reason Stop Dose Admin Diltiazem HCl 10 mg 08/23/18 07:44 Cardizem 125mg/25ml Vial IV 08/23/18 07:45 ONCE ONE ORDERS Category Date Time Status XR chest 2V Stat Exams 08/23/18 07:20 Taken Comprehensive Metabolic Panel Stat Lab 08/23/18 07:28 Results T4 (Thyroxine) Stat Lab 08/23/18 07:28 Results Thyroid Stimulating Hormone Stat Lab 08/23/18 07:28 Results Trop I [Troponin I] Stat Lab 08/23/18 07:28 Results Blood Culture Stat Micro 08/23/18 07:28 Received - Radiology Data #1 Image(s): Chest Image Reviewed: Yes I reviewed the patient's radiology image Preliminary Findings: Abnormal (rt cap/effusion) - ECG Data Tracing #1 Arrhythmias present: aflutter Ischemic changes: non-specific ST-T wave changes - Physician Consults Physician Consulted: jennifer Reason -: Admission Resp/SOB HPI - General Chief Complaint: Upper Respiratory Infection Stated Complaint: Coughing, congestion Time Seen by Provider: 08/23/18 07:15 Mode of Arrival: Ambulatory Source of Information: Patient, Medical Record Limitations: No Limitations Description of Symptoms (Recalled from ER Triage Doc. by RN): Pt c/o productive cough, nasal congestion, fevers x5 days - History of Present Illness wm with fever and cough over the last few days with sob and weakness MD Complaint: shortness of breath, cough Onset (ago): day(s) Severity: moderate Associated symptoms: denies other symptoms - Related Data Home oxygen amount: none Previous Rx's Medication Instructions Recorded dilTIAZem HCl [Diltiazem 180mg 180 mg PO DAILY #30 cap.er.24h 07/25/18 24Hr ER Cap] Allergies Allergy/AdvReac Type Severity Reaction Status Date / Time codeine [CODEINE] Allergy Unknown I-RASH Verified 08/23/18 07:18 [facility] History I have reviewed the patient's past medical history: Yes Medical History: Reports:: Diabetes Mellitus Type 2 Denies:: Cancer, Diabetes Mellitus Type 1, MRSA Other Medical History: Reports: Anemia (Hemolytic anemia, prednisone responsive, GI workup negative) Laterality Cases: Bilateral: Other Other Surgeries: Yes: Other (?SX BOTH LEGS, AND L ARM) Amputation: No Fractures: No - Social History Smoking Status: Never smoker Alcohol Intake: never Alcohol Intake Frequency:: holidays/special occasions only Occupational Status: retired Housing: apartment - Psychiatric History Expresses thoughts of harming self/others: None Suicide Plan Description: No Plan Family Hx:: Unable to obtain ROS Obtained: Yes All systems reviewed & no additional complaints - Constitutional Constitutional: Denies fever(s) - Eyes Eyes: Denies change in vision - ENT Ears, Nose, Mouth, and Throat: Denies sore throat - Cardiovascular Cardiovascular: Denies chest pain, Reports dyspnea - Respiratory Respiratory: Yes cough - Gastrointestinal Gastrointestingal: Denies: abdominal pain - Genitourinary Male Genitourinary: Denies hematuria - Musculoskeletal Musculoskeletal: Denies joint pain - Integumentary/Breasts Skin/Breast: Denies rash - Neurologic Neurologic: Denies seizure-like activity Physical Exam - General General appearance: alert - Head Head exam: normocephalic - Eye Eye exam: Present: PERRL, EOMI - ENT ENT exam: Present: mucous membranes dry - Neck Neck exam: Present: trachea midline - Respiratory Respiratory exam: Present: other (dec ) - Cardiovascular Cardiovascular exam: Present: regular rate, systolic murmur - Abdominal Exam Abdominal exam: Present: soft - Extremities Exam Extremities exam: Absent: tenderness - Neurological Exam Neurological exam: Present: alert, oriented X3, CN II-XII intact - Psychiatric Psychiatric exam: Present: normal affect - Skin Skin exam: Absent: rash
[2018-08-23 07:44] LABS: Basophils # 0.1 K/mm3 (0-0.2); Basophils % 1.2 % (0.1-2.0); Eosinophils # 0.1 K/mm3 (0.0-0.4); Eosinophils % 1.6 % (0.1-12.0); Hematocrit 34.1 % (42.0-52.0); Hemoglobin 10.7 g/dL (14.1-18.0); Lymphocytes # 0.7 K/mm3 (0.7-4.5); Mean Corpuscular HGB Conc 31.5 g/dL (31.8-35.4); Mean Corpuscular Hemoglobin 34.1 pg (27.0-31.2); Mean Corpuscular Volume 108.3 fl (80-94); Monocytes # 0.4 K/mm3 (0.1-1.0); Monocytes % 7.7 % (1.7-9.3); Neutrophils # 3.7 K/mm3 (1.8-7.8); Neutrophils % 75.4 % (37.0-80.0); Platelet Count 319 K/mm3 (142-424); Red Blood Count 3.15 M/mm3 (4.60-6.20); Red Cell Distribution Width 21.8 % (11.5-17.5); White Blood Count 4.9 K/mm3 (4.8-10.8)
[2018-08-23 08:05] LABS: Alanine Aminotransferase 52 U/L (12-78); Albumin Level 3.8 gm/dL (3.4-5.0); Albumin/Globulin Ratio 1.5 (1.1-1.8); Alkaline Phosphatase 146 U/L (46-116); Anion Gap 12.2 mEq/L (5-15); Aspartate Amino Transferase 28 U/L (15-37); Bilirubin,Total 1.1 mg/dL (0.2-1.0); Blood Urea Nitrogen 14 mg/dL (7-18); Calcium 8.7 mg/dL (8.5-10.1); Carbon Dioxide 25 mmol/L (21.0-32.0); Chloride 106 mmol/L (98-107); Globulin 2.6 gm/dl (1.3-3.2); Glucose 153 mg/dL (74-106); Potassium 4.2 mmoL/L (3.5-5.1); Sodium 139 mmol/L (136-145); T4 (Thyroxine) 11.2 ug/dl (4.7-13.3); Thyroid Stimulating Hormone 5.13 uIU/ml (0.358-3.740); Total Protein,Serum 6.4 gm/dL (6.4-8.2)
--- NOTE | 2018-08-23 08:54 | Consult Report ---
History of Present Illness Consult date: 08/23/18 Requesting physician: Aron Cabrera Chief complaint: A. flutter with RVR, Additional Medical History:: 1. DM, Type 2 2. Autoimmune Hemolytic Anemia A. History of previous Hematology workups with recommendations for prednisone therapy. Pt stopped prednisone because "it was too strong." B. History of negative GI work up for possible blood loss 3. HTN History of present illness: 68-year-old white male with history of type 2 diabetes mellitus, autoimmune hemolytic anemia and recent ER visit for atrial fibrillation presented to the ER for evaluation of "pneumonia" with associated shortness of breath. Chest x-ray did reveal evidence of possible pneumonia but EKG showed atrial flutter with a rate of 145 bpm. Previous ER visit 2 months ago noted new-onset atrial fibrillation with a rapid rate that spontaneously converted during the visit in the ER. Patient was placed on p.o. Cardizem and discharged after an overnight stay. He states he has been compliant with his medications but has noticed some increased shortness of breath and decreased activity tolerance over the last 2 days. Initial troponin is normal. Cardiology consulted for evaluation recommendations. Patient has been started on a Cardizem drip with no heart rate response at this time. [facility] History Medical History: Reports:: Diabetes Mellitus Type 2 Denies:: Cancer, Diabetes Mellitus Type 1, MRSA Other Medical History: Reports: Anemia (Hemolytic anemia, prednisone responsive, GI workup negative) Laterality Cases: Bilateral: Other Other Surgeries: Yes: Other (?SX BOTH LEGS, AND L ARM) Amputation: No Fractures: No - *Social History Smoking Status: Never smoker Alcohol Intake: never Alcohol Intake Frequency:: holidays/special occasions only Occupational Status: retired Housing: apartment - Psychiatric History Expresses thoughts of harming self/others: None Suicide Plan Description: No Plan *Family Hx:: Unable to obtain Meds Allergies Allergy/AdvReac Type Severity Reaction Status Date / Time codeine [CODEINE] Allergy Unknown I-RASH Verified 08/23/18 07:18 Review of Systems - *Cardiovascular Reports shortness of breath with activity, Reports fast heart rate - *Respiratory Reports cough, Reports shortness of breath with activity - *Gastrointestinal Denies abdominal pain - *Genitourinary Denies blood in urine - *Musculoskeletal Reports back pain - *Neurologic Denies seizure-like activity Exam Vital signs and Labs for Last 24 Hours: Temp Pulse Resp BP Pulse Ox 98.1 F 70 18 114/57 L 98 08/23/18 08:44 08/23/18 08:44 08/23/18 08:44 08/23/18 08:44 08/23/18 08:44 Laboratory Results - last 24 hr 08/23/18 07:28: WBC 4.9, RBC 3.15 L, Hgb 10.7 L, Hct 34.1 L, MCV 108.3 H, MCH 34.1 H, MCHC 31.5 L, RDW 21.8 H, Plt Count 319, MPV 9.0, Neut % (Auto) 75.4, Lymph % (Auto) 14.0, [place] % (Auto) 7.7, Eos % (Auto) 1.6, Baso % (Auto) 1.2, Neut # (Auto) 3.7, Lymph # (Auto) 0.7, [place] # (Auto) 0.4, Eos # (Auto) 0.1, Baso # (Auto) 0.1 08/23/18 07:28: Sodium 139, Potassium 4.2, Chloride 106, Carbon Dioxide 25, Anion Gap 12.2, BUN 14, Creatinine 1.15, Estimated Creat Clear 80, Estimated GFR 63, Est GFR ( Amer) 77, Glucose 153 H, Calcium 8.7, Total Bilirubin 1.1 H, AST 28, ALT 52, Alkaline Phosphatase 146 H, Troponin I < 0.02, Total Protein 6.4, Albumin 3.8, Globulin 2.6, Albumin/Globulin Ratio 1.5, TSH 5.13 H D, Thyroxine (T4) 11.2 08/23/18 07:28: Lactate 1.8 I & O for Last 24 hours: Intake & Output 08/20/18 08/21/18 08/22/18 08/23/18 11:59 11:59 11:59 11:59 Weight 200 lb - *Routine Neck Exam Present: supple. Absent: JVD, carotid bruit - *Routine Respiratory Exam Present: decreased breath sounds, rhonchi. Absent: accessory muscle use, rales, wheezes - *Routine Cardiovascular Exam Present: tachycardia. Absent: murmur, gallop, rubs - *Routine Abdominal Exam Present: soft. Absent: tenderness, distended, guarding - *Routine Extremities Exam Absent: edema, calf tenderness - *Routine Neurological Exam Present: alert, oriented X3, moving all extremities Assessment and Plan (1) Anemia Current visit: Yes Status: Acute Qualifiers: Anemia type: unspecified type Qualified Code(s): D64.9 - Anemia, unspecified Category: Medical Code(s): D64.9 - Anemia, unspecified (2) Atrial flutter Current visit: Yes Status: Acute Qualifiers: Atrial flutter type: unspecified Qualified Code(s): I48.92 - Unspecified atrial flutter Category: Medical Code(s): I48.92 - Unspecified atrial flutter (3) CAP (community acquired pneumonia) Current visit: Yes Status: Acute Qualifiers: Laterality: right Lung location: lower lobe of lung Qualified Code(s): J18.1 - Lobar pneumonia, unspecified organism Category: Medical Code(s): J18.9 - Pneumonia, unspecified organism (4) Chronic hemolytic anemia Current visit: No Status: Chronic Category: Medical Code(s): D58.9 - Hereditary hemolytic anemia, unspecified - Assessment and plan all Dx Assessment and Plan for all problems:: 1. Will increase cardizem gtt to 15 mg/hour after IV bolus of 15 mg. 2. Consider antiarrhythmic therapy or DC cardioversion pending response of a theodore. 3. Recommend anticoagulation in the form of Xarelto 20 mg daily due to elevated CHADs-VASc score of 3. Due to his chronic hemolytic anemia, will need close monitoring and referral to EP for consideration of ablation therapy and CARLOS ligation if jail anticoagulation not possible. 4. Will get echo once heart rate has improved.
--- NOTE | 2018-08-23 21:01 | History & Physical Report ---
*Admission Date: 08/23/18 *Chief complaint: Shortness of air and cough *History of present illness: 68-year-old white male with history of type 2 diabetes mellitus, autoimmune hemolytic anemia and recent ER visit for atrial fibrillation presented to the ER for evaluation of "pneumonia" with associated shortness of breath. Chest x-ray did reveal evidence of possible pneumonia but EKG showed atrial flutter with a rate of 145 bpm. Previous ER visit 2 months ago noted new-onset atrial fibrillation with a rapid rate that spontaneously converted during the visit in the ER. Patient was placed on p.o. Cardizem and discharged after an overnight stay. He states he has been compliant with his medications but has noticed some increased shortness of breath and decreased activity tolerance over the last 2 days. Initial troponin is normal. Cardiology consulted for evaluation recommendations. Patient has been started on a Cardizem drip with no heart rate response at this time. Above note per cardiology. Over the intervening time. Patient's heart rate has come down to the low 70 range. He feels much better. However still remains in atrial flutter. Patient is really unable to tell when he had irregular heart rates. He also reports lots of issues with medicine compliance [facility] History I have reviewed the patient's past medical history: Yes Medical History: Reports:: Atrial Fibrillation (One episode several months ago, spontaneously resolved), Diabetes Mellitus Type 2 Denies:: Cancer, Diabetes Mellitus Type 1, MRSA Other Medical History: Reports: Anemia (Hemolytic anemia, prednisone responsive, GI workup negative) Laterality Cases: Bilateral: Other Other Surgeries: Yes: Other (?SX BOTH LEGS, AND L ARM) Amputation: No Fractures: No - *Social History Smoking Status: Never smoker Alcohol Intake: never Alcohol Intake Frequency:: holidays/special occasions only Substance Use Type: marijuana Occupational Status: retired Housing: apartment - Psychiatric History Expresses thoughts of harming self/others: None Suicide Plan Description: No Plan *Family Hx:: Unable to obtain Review of Systems - Review of Systems Review of systems:: pertinent systems reviewed and negative unless documented below - Constitutional Reports lack of energy, Reports malaise, Denies anorexia, Denies body ache(s) - Eyes Denies blurry vision, Denies change in vision - ENT Denies abnormal hearing, Denies bleeding gums, Denies difficulty swallowing, Denies pain with swallowing - *Cardiovascular Reports shortness of breath, Reports shortness of breath with activity, Reports irregular heart rhythm, Denies chest pain, Denies chest pain with activity, Denies leg swelling, Denies leg sores - *Respiratory Reports chest congestion, Reports cough, Reports shortness of breath, Reports excessive phlegm production, Denies change in phlegm color - *Gastrointestinal Denies abdominal pain, Denies change in stools, Denies coffee ground vomit, Denies constipation, Denies heartburn - *Genitourinary Denies difficulty urinating - *Musculoskeletal Denies abnormal walking - *Neurologic Denies seizure-like activity Meds Allergies Allergy/AdvReac Type Severity Reaction Status Date / Time codeine [CODEINE] Allergy Unknown I-RASH Verified 08/23/18 07:18 Exam Vital signs and Labs for Last 24 Hours: Temp Pulse Resp BP Pulse Ox 97.6 F 72 18 111/55 L 99 08/23/18 16:00 08/23/18 19:00 08/23/18 19:00 08/23/18 19:00 08/23/18 19:00 Laboratory Results - last 24 hr 08/23/18 07:28: WBC 4.9, RBC 3.15 L, Hgb 10.7 L, Hct 34.1 L, MCV 108.3 H, MCH 34.1 H, MCHC 31.5 L, RDW 21.8 H, Plt Count 319, MPV 9.0, Neut % (Auto) 75.4, Lymph % (Auto) 14.0, [place] % (Auto) 7.7, Eos % (Auto) 1.6, Baso % (Auto) 1.2, Neut # (Auto) 3.7, Lymph # (Auto) 0.7, [place] # (Auto) 0.4, Eos # (Auto) 0.1, Baso # (Auto) 0.1 08/23/18 07:28: Sodium 139, Potassium 4.2, Chloride 106, Carbon Dioxide 25, Anion Gap 12.2, BUN 14, Creatinine 1.15, Estimated Creat Clear 80, Estimated GFR 63, Est GFR ( Amer) 77, Glucose 153 H, Calcium 8.7, Total Bilirubin 1.1 H, AST 28, ALT 52, Alkaline Phosphatase 146 H, Troponin I < 0.02, Total Protein 6.4, Albumin 3.8, Globulin 2.6, Albumin/Globulin Ratio 1.5, TSH 5.13 H D, Thyroxine (T4) 11.2 08/23/18 07:28: Lactate 1.8 08/23/18 11:14: Stl Aeromonas (PCR) Not detected, Stl C. cayetanensis PCR Not detected, Stool Rotavirus (PCR) Not detected, Stl Adenov F 40/41 PCR Not detected, Stool Astrovirus (PCR) Not detected, Stool Campylobacter PCR Not detected, Stl C.difficile Tox PCR Not detected, Stool Cryptosporidium PCR Not detected, Stl E.coli Shiga Tox PCR Not detected, Stool E coli O157 PCR Not detected, Stl Enterotoxigenic E PCR Not detected, Stool EPEC (PCR) Not detected, Stool EAEC (PCR) Not detected, Stl E. histolytica PCR Not detected, Stool Giardia Lamblia PCR Not detected, Stool Salmonella PCR Not detected, Stool Sapovirus (PCR) Not detected, Stl P. shigelloides PCR Not detected, Stl Shigella/EIEC PCR Not detected, St Y.enterocolitica PCR Not detected, Stool Vibrio (PCR) Not detected, Stl Vibrio cholerae PCR Not detected, Stl Norovirus GI/GII PCR Detected A 08/23/18 11:18: Troponin I < 0.02 08/23/18 14:24: Troponin I < 0.02 I & O for Last 24 hours: Intake & Output 08/21/18 08/22/18 08/23/18 08/24/18 11:59 11:59 11:59 11:59 Output Total 150 / 150 Balance -150 / -150 Weight 172 lb 8 oz Narrative: Patient is in bed in the stepdown unit. He is alert. Somewhat difficult to focus on his history. Oropharynx clear, no JVD. No other neck pathology noted. Lungs have good air movement, crackles in both bases. Diminished air movement on the right side. Heart rate currently regular in the low 70s. Abdomen soft, Good distal perfusion. No cranial nerve deficits, able to move all extremities well. H&P: Result - Imaging and Cardiology Chest x-ray Status: image reviewed by me Assessment and Plan (1) Anemia Current visit: Yes Status: Acute Qualifiers: Anemia type: acquired or hereditary hemolytic anemia Hemolytic anemia type: acquired, autoimmune, other Qualified Code(s): D59.1 - Other autoimmune hemolytic anemias Category: Medical Code(s): D64.9 - Anemia, unspecified Patient evidence of active bleed so theoretically anticoagulation would not be an issue but any bleeding whatsoever would considerably pose more danger for him. Watch very carefully. (2) Atrial flutter Current visit: Yes Status: Acute Qualifiers: Atrial flutter type: unspecified Qualified Code(s): I48.92 - Unspecified atrial flutter Category: Medical Code(s): I48.92 - Unspecified atrial flutter Currently rate controlled. Await echocardiogram results tomorrow. At that point decide further workup or medical versus electrical cardioversion (3) CAP (community acquired pneumonia) Current visit: Yes Status: Acute Qualifiers: Laterality: right Lung location: lower lobe of lung Qualified Code(s): J18.1 - Lobar pneumonia, unspecified organism Category: Medical Code(s): J18.9 - Pneumonia, unspecified organism Treatment initiated as noted, await culture results (4) Chronic hemolytic anemia Current visit: No Status: Chronic Category: Medical Code(s): D58.9 - Hereditary hemolytic anemia, unspecified
[2018-08-24 06:43] LABS: Calcium 8.2 mg/dL (8.5-10.1)
[2018-08-24 07:58] LABS: Basophils % 0.5 % (0.1-2.0); Eosinophils # 0.1 K/mm3 (0.0-0.4); Eosinophils % 1.7 % (0.1-12.0); Hematocrit 30.3 % (42.0-52.0); Lymphocytes # 0.6 K/mm3 (0.7-4.5); Lymphocytes % 12.9 K/mm3 (10-50); Mean Corpuscular HGB Conc 31.6 g/dL (31.8-35.4); Mean Corpuscular Hemoglobin 33.8 pg (27.0-31.2); Mean Corpuscular Volume 106.9 fl (80-94); Mean Platelet Volume 9.4 fl (7.4-10.4); Monocytes # 0.5 K/mm3 (0.1-1.0); Monocytes % 11.3 % (1.7-9.3); Neutrophils # 3.4 K/mm3 (1.8-7.8); Neutrophils % 73.6 % (37.0-80.0); Platelet Count 282 K/mm3 (142-424); Red Blood Count 2.83 M/mm3 (4.60-6.20); Red Cell Distribution Width 21.5 % (11.5-17.5); White Blood Count 4.6 K/mm3 (4.8-10.8)
[2018-08-24 08:10] LABS: Hemoglobin 9.6 g/dL (14.1-18.0)
--- NOTE | 2018-08-24 08:39 | Progress Note ---
Internal Medicine - PN: Subj *Date: 08/24/18 *Time: 08:37 Interval history: Patient states that he feels better. Has no complaints of chest pain or shortness of air. Has had minimal diarrheal stools. Exam Vital signs and Labs for Last 24 Hours: Temp Pulse Resp BP Pulse Ox 99.5 F 72 16 153/81 H 99 08/24/18 04:00 08/24/18 07:30 08/24/18 06:59 08/24/18 06:59 08/24/18 07:30 Laboratory Results - last 24 hr 08/23/18 11:14: Stl Aeromonas (PCR) Not detected, Stl C. cayetanensis PCR Not detected, Stool Rotavirus (PCR) Not detected, Stl Adenov F 40/41 PCR Not detected, Stool Astrovirus (PCR) Not detected, Stool Campylobacter PCR Not detected, Stl C.difficile Tox PCR Not detected, Stool Cryptosporidium PCR Not detected, Stl E.coli Shiga Tox PCR Not detected, Stool E coli O157 PCR Not detected, Stl Enterotoxigenic E PCR Not detected, Stool EPEC (PCR) Not detected, Stool EAEC (PCR) Not detected, Stl E. histolytica PCR Not detected, Stool Giardia Lamblia PCR Not detected, Stool Salmonella PCR Not detected, Stool Sapovirus (PCR) Not detected, Stl P. shigelloides PCR Not detected, Stl Shigella/EIEC PCR Not detected, St Y.enterocolitica PCR Not detected, Stool Vibrio (PCR) Not detected, Stl Vibrio cholerae PCR Not detected, Stl Norovirus GI/GII PCR Detected A 08/23/18 11:18: Troponin I < 0.02 08/23/18 14:24: Troponin I < 0.02 08/23/18 22:51: POC Glucose 100 08/24/18 05:39: WBC 4.6 L, RBC 2.83 L, Hgb 9.6 L D, Hct 30.3 L, MCV 106.9 H, MCH 33.8 H, MCHC 31.6 L, RDW 21.5 H, Plt Count 282, MPV 9.4, Neut % (Auto) 73.6, [place] ph % (Auto) 12.9, [place] % (Auto) 11.3 H, Eos % (Auto) 1.7, Baso % (Auto) 0.5, Neut # (Auto) 3.4, Lymph # (Auto) 0.6 L, [place] # (Auto) 0.5, Eos # (Auto) 0.1, Baso # (Auto) 0.0 08/24/18 05:39: Sodium 138, Potassium 4.0, Chloride 107, Carbon Dioxide 25, Anion Gap 10.0, BUN 11, Creatinine 0.83 D, Estimated Creat Clear 81, Estimated GFR 92, Est GFR ( Amer) 112 D, Glucose 98 D, Calcium 8.2 L I & O for Last 24 hours: Intake & Output 08/21/18 08/22/18 08/23/18 08/24/18 11:59 11:59 11:59 11:59 Intake Total 1651 / 1651 Output Total 350 / 350 Balance 1301 / 1301 Weight 172 lb 8 oz 175 lb 3 oz Narrative: Patient is pleasant, alert. Remains somewhat tangential in his thinking and thought/verbal output. Heart rate regular, but monitor car operator continues to show atrial flutter. Lungs are clear, abdomen soft and nontender. Assessment and Plan (1) Anemia Current visit: Yes Status: Acute Qualifiers: Anemia type: acquired or hereditary hemolytic anemia Hemolytic anemia type: acquired, autoimmune, other Qualified Code(s): D59.1 - Other autoimmune hemolytic anemias Category: Medical Code(s): D64.9 - Anemia, unspecified (2) Atrial flutter Current visit: Yes Status: Acute Qualifiers: Atrial flutter type: unspecified Qualified Code(s): I48.92 - Unspecified atrial flutter Category: Medical Code(s): I48.92 - Unspecified atrial flutter (3) CAP (community acquired pneumonia) Current visit: Yes Status: Acute Qualifiers: Laterality: right Lung location: lower lobe of lung Qualified Code(s): J18.1 - Lobar pneumonia, unspecified organism Category: Medical Code(s): J18.9 - Pneumonia, unspecified organism (4) Chronic hemolytic anemia Current visit: No Status: Chronic Category: Medical Code(s): D58.9 - Hereditary hemolytic anemia, unspecified (5) Cardiomyopathy Current visit: Yes Status: Acute Category: Medical Code(s): I42.9 - Cardiomyopathy, unspecified Given preliminary results of echocardiogram of 30-35% and his atrial flutter patient is not able to go home today. Although his rate control has been good we will need to transition from calcium channel arnold to beta blockade for rate control given his low ejection fraction. Cardiology is considering left heart catheter for evaluation for pacer/ICD implantation. (6) Norovirus Current visit: Yes Status: Acute Category: Medical Code(s): A08.11 - Acute gastroenteropathy due to [place] agent Alecia virus on PCR testing. Patient is fairly asymptomatic. Continue to monitor/observe carefully. Check labs tomorrow for hydration status.
--- NOTE | 2018-08-24 09:11 | Procedure Note ---
[facility] [employer]PER[employer]-D Upgrade - [facility] [employer] Upgrade Procedures:: 1. Pocket formation for biventricular pacemaker generator with cardiac resynchronization/defibrillator therapy. 2. Placement atrial sensing and pacing lead into the right atrial appendage. 3. Placement of ventricular sensing pacing and shocking lead in the right julio c tricular apex. 4. Placement of left ventricular sensing pacing lead into the coronary sinus. 5. Permanent cardiac resynchronization therapy with ICD implantation/biventricular pacemaker. Indication for test:: Systolic Congestive heart failure, ejection <35 % Wide QRS > 120ms [place] [employer] Class 3 CHF Informed consent:: Obtained prior to procedure. Complications:: None EBL:: Less than 10 ml. Plan:: Post-op wound care
--- NOTE | 2018-08-24 09:19 | Progress Note ---
Subjective Date: 08/24/18 Time: 09:14 Principal diagnosis: A. flutter, Cardiomyopathy Interval history: 68 yo WM in bed in NAD. Heart rate improved on combo of IV cardizem and digoxin but still in a. flutter. Rate increases quickly with movement in room but returns quickly to controlled rate with rest. Preliminary echo shows reduced EF at about 30-35%. 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 Exam Vital signs and Labs for Last 24 Hours: Temp Pulse Resp BP Pulse Ox 99.5 F 77 16 153/81 H 99 08/24/18 04:00 08/24/18 09:05 08/24/18 06:59 08/24/18 06:59 08/24/18 07:30 Laboratory Results - last 24 hr 08/23/18 11:14: Stl Aeromonas (PCR) Not detected, Stl C. cayetanensis PCR Not detected, Stool Rotavirus (PCR) Not detected, Stl Adenov F 40/41 PCR Not detected, Stool Astrovirus (PCR) Not detected, Stool Campylobacter PCR Not detected, Stl C.difficile Tox PCR Not detected, Stool Cryptosporidium PCR Not detected, Stl E.coli Shiga Tox PCR Not detected, Stool E coli O157 PCR Not detected, Stl Enterotoxigenic E PCR Not detected, Stool EPEC (PCR) Not detected, Stool EAEC (PCR) Not detected, Stl E. histolytica PCR Not detected, Stool Giardia Lamblia PCR Not detected, Stool Salmonella PCR Not detected, Stool Sapovirus (PCR) Not detected, Stl P. shigelloides PCR Not detected, Stl Shigella/EIEC PCR Not detected, St Y.enterocolitica PCR Not detected, Stool Vibrio (PCR) Not detected, Stl Vibrio cholerae PCR Not detected, Stl Norovirus GI/GII PCR Detected A 08/23/18 11:18: Troponin I < 0.02 08/23/18 14:24: Troponin I < 0.02 08/23/18 22:51: POC Glucose 100 08/24/18 05:39: WBC 4.6 L, RBC 2.83 L, Hgb 9.6 L D, Hct 30.3 L, MCV 106.9 H, MCH 33.8 H, MCHC 31.6 L, RDW 21.5 H, Plt Count 282, MPV 9.4, Neut % (Auto) 73.6, Lymph % (Auto) 12.9, [place] % (Auto) 11.3 H, Eos % (Auto) 1.7, Baso % (Auto) 0.5, Neut # (Auto) 3.4, Lymph # (Auto) 0.6 L, [place] # (Auto) 0.5, Eos # (Auto) 0.1, Baso # (Auto) 0.0 08/24/18 05:39: Sodium 138, Potassium 4.0, Chloride 107, Carbon Dioxide 25, Anion Gap 10.0, BUN 11, Creatinine 0.83 D, Estimated Creat Clear 81, Estimated GFR 92, Est GFR ( Amer) 112 D, Glucose 98 D, Calcium 8.2 L I & O for Last 24 hours: Intake & Output 08/21/18 08/22/18 08/23/18 08/24/18 11:59 11:59 11:59 11:59 Intake Total 1651 / 1651 Output Total 350 / 350 Balance 1301 / 1301 Weight 172 lb 8 oz 175 lb 3 oz - *Routine Respiratory Exam Present: CTA bilaterally. Absent: accessory muscle use, rales, rhonchi, wheezes - *Routine Cardiovascular Exam Present: irregular rhythm. Absent: murmur, gallop, rubs - *Routine Neurological Exam Present: alert, oriented X3, moving all extremities Progress Note: A&P (1) Anemia Status: Acute Current Visit: Yes (2) Atrial flutter Status: Acute Current Visit: Yes (3) CAP (community acquired pneumonia) Status: Acute Current Visit: Yes (4) Chronic hemolytic anemia Status: Chronic Current Visit: No (5) Cardiomyopathy Status: Acute Current Visit: Yes (6) Norovirus Status: Acute Current Visit: Yes Assessment and Plan for All Diagnoses:: 1. Hold Xarelto today. Use lovenox today. 2. Plan for [facility] tomorrow to assess for CAD/ischemic cardiomyopathy as etiology of reduced LVEF. 3. Will stop cardizem and use beta arnold due to reduced EF. Add RONALD or ARB as tolerated. 4. Consider LASHAUN/Cardioversion later this week pending results of above.
--- NOTE | 2018-08-24 11:59 | Pharmacy Consult Notes ---
[facility] Pharmacy VTE Monitoring - Patient Demographics Admission date: 08/24/18 Report Date: 08/24/18 Time: 11:59 Allergies/Adverse Reactions: Patient Allergies codeine [CODEINE] Allergy (Unknown, Verified 08/23/18 07:18) I-RASH Height: 1.63 m Weight: 79.464 kg Patient Problems: Current Active Problems Anemia (Acute) CAP (community acquired pneumonia) (Acute) Atrial flutter (Acute) Cardiomyopathy (Acute) Norovirus (Acute) - VTE Risk Labs: VTE Related Lab Results Hgb 9.6 g/dL (14.1-18.0) L D 08/24/18 05:39 Hct 30.3 % (42.0-52.0) L 08/24/18 05:39 Plt Count 282 K/mm3 (142-424) 08/24/18 05:39 BUN 11 mg/dL (7-18) 08/24/18 05:39 Creatinine 0.83 mg/dL (0.70-1.30) D 08/24/18 05:39 Estimated Creat Clear 81 mL/min (0-300) 08/24/18 05:39 - Prophylaxis Types of VTE Prophylaxis: TEDS Knee High (TIFFANY HOSE ORDER PLACED) Location of Applied Device: Not Applicable
[2018-08-25 06:00] LABS: Basophils % 0.9 % (0.1-2.0); Eosinophils # 0.1 K/mm3 (0.0-0.4); Eosinophils % 3.2 % (0.1-12.0); Hematocrit 29.8 % (42.0-52.0); Hemoglobin 9.5 g/dL (14.1-18.0); Lymphocytes # 0.6 K/mm3 (0.7-4.5); Mean Corpuscular HGB Conc 31.7 g/dL (31.8-35.4); Mean Corpuscular Hemoglobin 34.4 pg (27.0-31.2); Mean Corpuscular Volume 108.5 fl (80-94); Mean Platelet Volume 8.9 fl (7.4-10.4); Monocytes # 0.4 K/mm3 (0.1-1.0); Monocytes % 10.2 % (1.7-9.3); Neutrophils # 2.6 K/mm3 (1.8-7.8); Neutrophils % 68.7 % (37.0-80.0); Platelet Count 260 K/mm3 (142-424); Red Blood Count 2.75 M/mm3 (4.60-6.20); Red Cell Distribution Width 21.7 % (11.5-17.5); White Blood Count 3.8 K/mm3 (4.8-10.8)
[2018-08-25 06:53] LABS: Albumin Level 3.2 gm/dL (3.4-5.0); Albumin/Globulin Ratio 1.3 (1.1-1.8); Anion Gap 13.5 mEq/L (5-15); Bilirubin,Total 0.8 mg/dL (0.2-1.0); Calcium 8.3 mg/dL (8.5-10.1); Globulin 2.5 gm/dl (1.3-3.2); Potassium 4.5 mmoL/L (3.5-5.1); Total Protein,Serum 5.7 gm/dL (6.4-8.2)
--- NOTE | 2018-08-25 07:22 | Progress Note ---
Internal Medicine - PN: Subj *Date: 08/25/18 *Time: 07:20 Interval history: Patient did well overnight. Had some intermittent confusion when he was awakened in the middle of the night but this has cleared this morning. No problems with tachycardia when he is resting. When he gets up and moves around heart rate goes into the low 100s. Still in atrial flutter with intermittent conduction. Exam Vital signs and Labs for Last 24 Hours: Temp Pulse Resp BP Pulse Ox 97.8 F 94 H 20 133/88 96 08/25/18 04:00 08/25/18 04:00 08/25/18 04:00 08/25/18 04:00 08/25/18 04:00 Laboratory Results - last 24 hr 08/24/18 05:39: WBC 4.6 L, RBC 2.83 L, Hgb 9.6 L D, Hct 30.3 L, MCV 106.9 H, MCH 33.8 H, MCHC 31.6 L, RDW 21.5 H, Plt Count 282, MPV 9.4, Neut % (Auto) 73.6, Lymph % (Auto) 12.9, [place] % (Auto) 11.3 H, Eos % (Auto) 1.7, Baso % (Auto) 0.5, Neut # (Auto) 3.4, Lymph # (Auto) 0.6 L, [place] # (Auto) 0.5, Eos # (Auto) 0.1, Baso # (Auto) 0.0 08/25/18 05:44: WBC 3.8 L, RBC 2.75 L, Hgb 9.5 L, Hct 29.8 L, MCV 108.5 H, MCH 34.4 H, MCHC 31.7 L, RDW 21.7 H, Plt Count 260, MPV 8.9, Neut % (Auto) 68.7, Lymph % (Auto) 17.0, [place] % (Auto) 10.2 H, Eos % (Auto) 3.2, Baso % (Auto) 0.9, Neut # (Auto) 2.6, Lymph # (Auto) 0.6 L, [place] # (Auto) 0.4, Eos # (Auto) 0.1, Baso # (Auto) 0.0 08/25/18 05:44: Sodium 139, Potassium 4.5, Chloride 106, Carbon Dioxide 24, Anion Gap 13.5, BUN 13, Creatinine 0.92, Estimated Creat Clear 80, Estimated GFR 82, Est GFR ( Amer) 99, Glucose 102, Calcium 8.3 L, Total Bilirubin 0.8, AST 23, ALT 47, Alkaline Phosphatase 133 H, Total Protein 5.7 L, Albumin 3.2 L, Globulin 2.5, Albumin/Globulin Ratio 1.3 I & O for Last 24 hours: Intake & Output 08/22/18 08/23/18 08/24/18 08/25/18 11:59 11:59 11:59 11:59 Intake Total 1651 / 1651 2270 / 2270 Output Total 350 / 350 1050 / 1050 Balance 1301 / 1301 1220 / 1220 Weight 172 lb 8 oz 175 lb 3 oz 173 lb 5 oz Narrative: Patient is pleasant, when awakened is alert and oriented. Heart rate regular with ectopic beats. Atrial flutter on monitor. Abdomen soft and nontender, no edema. Breathing easily. 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 On beta-arnold secondary to low EF. (3) CAP (community acquired pneumonia) Current visit: Yes Status: Acute Qualifiers: Laterality: right Lung location: lower lobe of lung Qualified Code(s): J18.1 - Lobar pneumonia, unspecified organism Category: Medical Code(s): J18.9 - Pneumonia, unspecified organism (4) Chronic hemolytic anemia Current visit: No Status: Chronic Category: Medical Code(s): D58.9 - Hereditary hemolytic anemia, unspecified (5) Cardiomyopathy Current visit: Yes Status: Acute Category: Medical Code(s): I42.9 - Cardiomyopathy, unspecified EF 30-35% echocardiogram. Heart cath today to decide whether or not ICD device versus pacemaker versus medical therapy would be indicated. (6) Norovirus Current visit: Yes Status: Acute Category: Medical Code(s): A08.11 - Acute gastroenteropathy due to [place] agent Norovirus seems to have abated. No diarrhea over the past 48 hours.
--- NOTE | 2018-08-25 09:11 | Progress Note ---
Subjective Date: 08/25/18 Time: 09:08 Principal diagnosis: A. flutter, Cardiomyopathy Interval history: 68-year-old white male in bed in no acute distress. Denies any chest pain. He does note when he gets up and moves around his heart rate does increase again. Exam Vital signs and Labs for Last 24 Hours: Temp Pulse Resp BP Pulse Ox 97.9 F 96 H 16 158/100 H 94 L 08/25/18 08:00 08/25/18 08:35 08/25/18 08:00 08/25/18 08:00 08/25/18 08:00 Laboratory Results - last 24 hr 08/25/18 05:44: WBC 3.8 L, RBC 2.75 L, Hgb 9.5 L, Hct 29.8 L, MCV 108.5 H, MCH 34.4 H, MCHC 31.7 L, RDW 21.7 H, Plt Count 260, MPV 8.9, Neut % (Auto) 68.7, Lymph % (Auto) 17.0, [place] % (Auto) 10.2 H, Eos % (Auto) 3.2, Baso % (Auto) 0.9, Neut # (Auto) 2.6, Lymph # (Auto) 0.6 L, [place] # (Auto) 0.4, Eos # (Auto) 0.1, Baso # (Auto) 0.0 08/25/18 05:44: Sodium 139, Potassium 4.5, Chloride 106, Carbon Dioxide 24, Anion Gap 13.5, BUN 13, Creatinine 0.92, Estimated Creat Clear 80, Estimated GFR 82, Est GFR ( Amer) 99, Glucose 102, Calcium 8.3 L, Total Bilirubin 0.8, AST 23, ALT 47, Alkaline Phosphatase 133 H, Total Protein 5.7 L, Albumin 3.2 L, Globulin 2.5, Albumin/Globulin Ratio 1.3 I & O for Last 24 hours: Intake & Output 08/22/18 08/23/18 08/24/18 08/25/18 11:59 11:59 11:59 11:59 Intake Total 1651 / 1651 2270 / 2270 Output Total 350 / 350 1050 / 1050 Balance 1301 / 1301 1220 / 1220 Weight 172 lb 8 oz 175 lb 3 oz 173 lb 5 oz Microbiology Reports for the Last 24 Hours: Microbiology 08/23/18 07:28 Blood Blood Culture - Preliminary NO GROWTH AFTER 48 HOURS 08/23/18 07:28 Blood Blood Culture - Preliminary NO GROWTH AFTER 48 HOURS - *Routine Respiratory Exam Present: CTA bilaterally. Absent: accessory muscle use, rales, rhonchi, wheezes - *Routine Cardiovascular Exam Present: irregular rhythm. Absent: murmur, gallop, rubs - *Routine Extremities Exam Absent: edema, calf tenderness - *Routine Neurological Exam Present: alert, oriented X3, moving all extremities Progress Note: A&P (1) Anemia Status: Acute Current Visit: Yes (2) Atrial flutter Status: Acute Current Visit: Yes (3) CAP (community acquired pneumonia) Status: Acute Current Visit: Yes (4) Chronic hemolytic anemia Status: Chronic Current Visit: No (5) Cardiomyopathy Status: Acute Current Visit: Yes (6) Norovirus Status: Acute Current Visit: Yes Assessment and Plan for All Diagnoses:: Atrial flutter persists with intermittent rapid ventricular rate with activity. We will increase bisoprolol to 10 mg twice daily as blood pressure and pulse rate tolerate. Continue bisoprolol and RONALD inhibitor for cardiomyopathy. Add aspirin daily. Xarelto on hold until after cardiac catheterization today. Consider LASHAUN/cardioversion prior to discharge.
--- NOTE | 2018-08-25 10:28 | Cardiology Report ---
PROCEDURE: 2-D M-mode and color Doppler study INDICATIONS FOR THE TEST: Chest pain COPD Heart Murmur Tobacco Smoking Palpitations Fatigue Syncope Edema Hypertension+Diabetes Mellitus+ Rheumatic Fever SOB ENG Obesity Hyperlipidemia Family History HD Additional History AFIB PATIENT INFORMATION HEIGHT: 64 WEIGHT: 175 GENDER: Male B/P: 111/55 2-D/M-MODE INTERPRETATION: 2-D MEASUREMENTS OBSERVED VALUES IN CMS Right Ventricular Dimension (RVDd) 3.0 Interventricular Septum (Thickness)(IVsd) 0.9 Left Ventricular Internal Dimensions(LVIDd) 6.3 Left Ventricular Posterior Wall (Thickness)(LVPWd) 0.9 Aortic Root 2.9 Aortic Cusp Separation 2.2 Left Atrial Dimensions (LAD) 5.1 2D 1. Left atrium is moderately enlarged, left ventricle is mildly dilated, reduced left ventricular systolic function, visually estimated ejection fraction 30%, left ventricle is globally hypokinetic. 2. The right atrium and right ventricle are mildly enlarged with normal contractility. 3. The aortic valve is minimally thickened and fibrosed. 4. The mitral and tricuspid valve leaflets are minimally thickened. 5. The pulmonic valve is poorly visualized. 6. No significant pericardial effusion noted. DOPPLER INTERROGATION: Doppler interrogation of the aortic, mitral and tricuspid valvular presence of mild mitral and tricuspid regurgitation, tricuspid regurgitation jet velocity is inadequate for calculation of the right ventricular systolic pressure, diastolic parameters are inconclusive. CONCLUSION: 1. Moderately enlarged left atrium, mildly dilated left ventricle, reduced left ventricular systolic function, visually estimated ejection fraction approximately 30%, left ventricle is globally hypokinetic. 2. Mild mitral and tricuspid regurgitation 3. No significant pericardial effusion noted.
[2018-08-26 05:36] LABS: Basophils % 0.8 % (0.1-2.0); Eosinophils # 0.1 K/mm3 (0.0-0.4); Hematocrit 29.6 % (42.0-52.0); Hemoglobin 9.5 g/dL (14.1-18.0); Lymphocytes # 0.7 K/mm3 (0.7-4.5); Lymphocytes % 16.4 K/mm3 (10-50); Mean Corpuscular HGB Conc 32.1 g/dL (31.8-35.4); Mean Corpuscular Hemoglobin 34.5 pg (27.0-31.2); Mean Corpuscular Volume 107.5 fl (80-94); Mean Platelet Volume 8.5 fl (7.4-10.4); Monocytes # 0.5 K/mm3 (0.1-1.0); Neutrophils # 2.7 K/mm3 (1.8-7.8); Neutrophils % 66.7 % (37.0-80.0); Platelet Count 268 K/mm3 (142-424); Red Blood Count 2.75 M/mm3 (4.60-6.20); Red Cell Distribution Width 21.9 % (11.5-17.5); White Blood Count 4.1 K/mm3 (4.8-10.8)
[2018-08-26 05:56] LABS: Anion Gap 13.2 mEq/L (5-15); Potassium 4.2 mmoL/L (3.5-5.1)
--- NOTE | 2018-08-26 08:24 | Discharge Summary ---
General - General Admission date:: 08/23/18 Discharge date: 08/26/18 HPI HPI: 68-year-old white male with history of type 2 diabetes mellitus, autoimmune hemolytic anemia and recent ER visit for atrial fibrillation presented to the ER for evaluation of "pneumonia" with associated shortness of breath. Chest x-ray did reveal evidence of possible pneumonia but EKG showed atrial flutter with a rate of 145 bpm. Previous ER visit 2 months ago noted new-onset atrial fibrillation with a rapid rate that spontaneously converted during the visit in the ER. Patient was placed on p.o. Cardizem and discharged after an overnight stay. He states he has been compliant with his medications but has noticed some increased shortness of breath and decreased activity tolerance over the last 2 days. Initial troponin is normal. Cardiology consulted for evaluation recommendations. Patient has been started on a Cardizem drip with no heart rate response at this time. Above note per cardiology. Over the intervening time. Patient's heart rate has come down to the low 70 range. He feels much better. However still remains in atrial flutter. Patient is really unable to tell when he had irregular heart rates. He also reports lots of issues with medicine compliance Hospital Course Hospital Course: Mr. Carrillo is a 68-year-old who was admitted for shortness of breath, atrial flutter, and acute on chronic systolic heart failure. Initiated on a Cardizem drip. Cardiology was consulted with subsequent performance of a heart catheter and placement of 2 stents due to cardiovascular disease. Noted to be in atrial fibrillation at time of admission on EKG. Initial echo showed concern for EF of 25%. Patient was kept an additional night with subsequent performance of a LASHAUN prior to cardioversion he remained hemodynamically stable. Noted to have some nausea and vomiting along with some diarrhea and found positive for Norovirus infection. Medically stable for discharge home with plan for close follow-up with cardiology. Due to EF of 25%, discussed benefit of a LifeVest with patient, however patient declined LifeVest. Follow-up with cardiology in 1 week. Reassess in 3 months for need for ICD placed Objective Vital signs: Temp Pulse Resp BP Pulse Ox 97.6 F 73 16 132/66 100 08/26/18 07:40 08/26/18 08:07 08/26/18 07:36 08/26/18 06:00 08/26/18 07:36 - *Routine HEENT Exam Head: Present: normocephalic, atraumatic Eye: Present: EOMI, PERRL ENT: Present: mucous membranes moist - *Routine Neck Exam Present: supple, full ROM. Absent: JVD - *Routine Respiratory Exam Present: CTA bilaterally. Absent: prolonged expiratory phase, wheezes, crackles - *Routine Cardiovascular Exam Present: Normal S1, Normal S2. Absent: irregular rhythm - *Routine Abdominal Exam Present: soft, normoactive bowel sounds - *Routine Rectal Exam Patient deferred: visual exam - *Routine Exam Patient deferred: penile exam - *Routine Extremities Exam Absent: cyanosis, clubbing, edema - *Routine Skin Exam Present: intact. Absent: cyanosis, erythema - *Routine Neurological Exam Present: alert, oriented X3, CN II-XII intact. Absent: altered mental status Results Labs on day of discharge: Labs from last 24 hours 08/26/18 08/26/18 08/25/18 05:30 05:30 12:01 WBC 4.1 L RBC 2.75 L Hgb 9.5 L Hct 29.6 L MCV 107.5 H MCH 34.5 H MCHC 32.1 RDW 21.9 H Plt Count 268 MPV 8.5 Neut % (Auto) 66.7 Lymph % (Auto) 16.4 [place] % (Auto) 13.0 H Eos % (Auto) 3.0 Baso % (Auto) 0.8 Neut # (Auto) 2.7 Lymph # (Auto) 0.7 [place] # (Auto) 0.5 Eos # (Auto) 0.1 Baso # (Auto) 0.0 Activated Clotting Time 238 H* D Sodium 138 Potassium 4.2 Chloride 107 Carbon Dioxide 22 Anion Gap 13.2 BUN 13 Creatinine 1.01 Estimated Creat Clear 82 Estimated GFR 74 Est GFR ( Amer) 89 Glucose 101 Calcium 8.0 L 08/25/18 11:50 WBC RBC Hgb Hct MCV MCH MCHC RDW Plt Count MPV Neut % (Auto) Lymph % (Auto) [place] % (Auto) Eos % (Auto) Baso % (Auto) Neut # (Auto) Lymph # (Auto) [place] # (Auto) Eos # (Auto) Baso # (Auto) Activated Clotting Time 312 H* Sodium Potassium Chloride Carbon Dioxide Anion Gap BUN Creatinine Estimated Creat Clear Estimated GFR Est GFR ( Amer) Glucose Calcium Preliminary micro results at discharge 08/23/18 07:28 Blood Culture - Preliminary Blood NO GROWTH AFTER 48 HOURS 08/23/18 07:28 Blood Culture - Preliminary Blood NO GROWTH AFTER 48 HOURS DS: Diagnosis - Discharge Diagnosis (1) Anemia Status: Chronic (2) Atrial flutter Status: Acute (3) CAP (community acquired pneumonia) Status: Acute (4) Chronic hemolytic anemia Status: Chronic (5) Cardiomyopathy Status: Acute (6) Norovirus Status: Acute (7) Acute on chronic systolic heart failure, NYHA class 2 Status: Acute (8) Pleural effusion Status: Acute Problem details: unspecified Discharge Plan - Patient Discharge Instructions Patient Instructions: Norovirus Infection, DI for Atrial Flutter, DI for Cardiac Catheterization, DI for Surgical Site Infection - Follow up Plan Home Medications: Home Medications Medication Instructions Recorded Confirmed Type Citalopram Hydrobromide 20 mg PO DAILY 08/24/18 08/24/18 History [Citalopram HBr] LORazepam [Ativan 0.5mg tablet] 0.5 mg PO BID 08/24/18 08/24/18 History Lisinopril [Lisinopril 20mg Tab] 20 mg PO BID 08/24/18 08/24/18 History Pantoprazole Sodium [Protonix 40mg 40 mg PO DAILY 08/24/18 08/24/18 History tablet] Venlafaxine HCl [Venlafaxine HCl 37.5 mg PO DAILY 08/24/18 08/24/18 History ER] dilTIAZem HCl [Diltiazem 180mg 180 mg PO DAILY 08/24/18 08/24/18 History 24Hr ER Cap] Prescriptions/Medication Reconciliation: No Action dilTIAZem HCl [Diltiazem 180mg 24Hr ER Cap] 180 mg PO DAILY Pantoprazole Sodium [Protonix 40mg tablet] 40 mg PO DAILY LORazepam [Ativan 0.5mg tablet] 0.5 mg PO BID Venlafaxine HCl [Venlafaxine HCl ER] 37.5 mg PO DAILY Citalopram Hydrobromide [Citalopram HBr] 20 mg PO DAILY Lisinopril [Lisinopril 20mg Tab] 20 mg PO BID
--- NOTE | 2018-08-26 09:36 | Progress Note ---
Addendum entered and electronically signed by GUILLE Freitas 08/26/18 13:47: LASHAUN/Cardioversion cancelled due to patient eating lunch. OK for discharge home from Cardiology standpoint with follow up next week with EKG to consider rescheduling LASHAUN/Cardioversion if needed. Home med recommendations: ASA 81 mg daily Plavix 75 mg daily Xarelto 20 mg daily bisoprolol 5 mg BID lisinopril 5 mg BID atorvastatin 40 mg daily Amiodarone 400 mg BID Digoxin 0.25 mg daily Pantoprazole 40 mg daily Original Note: Subjective Date: 08/26/18 Time: 09:33 Principal diagnosis: A. flutter, Cardiomyopathy Interval history: 68-year-old white male in bed in no acute distress. Denies chest pain, pressure or tightness. States he is feeling little bit better since his coronary stenting yesterday. Discussed recommendation for LASHAUN/cardioversion today and patient agrees to proceed. Exam Vital signs and Labs for Last 24 Hours: Temp Pulse Resp BP Pulse Ox 97.6 F 67 16 136/75 97 08/26/18 07:40 08/26/18 09:24 08/26/18 09:24 08/26/18 09:24 08/26/18 09:24 Laboratory Results - last 24 hr 08/25/18 11:50: Activated Clotting Time 312 H* 08/25/18 12:01: Activated Clotting Time 238 H* D 08/26/18 05:30: WBC 4.1 L, RBC 2.75 L, Hgb 9.5 L, Hct 29.6 L, MCV 107.5 H, MCH 34.5 H, MCHC 32.1, RDW 21.9 H, Plt Count 268, MPV 8.5, Neut % (Auto) 66.7, Lymph % (Auto) 16.4, [place] % (Auto) 13.0 H, Eos % (Auto) 3.0, Baso % (Auto) 0.8, Neut # (Auto) 2.7, Lymph # (Auto) 0.7, [place] # (Auto) 0.5, Eos # (Auto) 0.1, Baso # (Auto) 0.0 08/26/18 05:30: Sodium 138, Potassium 4.2, Chloride 107, Carbon Dioxide 22, Anion Gap 13.2, BUN 13, Creatinine 1.01, Estimated Creat Clear 82, Estimated GFR 74, Est GFR ( Amer) 89, Glucose 101, Calcium 8.0 L I & O for Last 24 hours: Intake & Output 08/23/18 08/24/18 08/25/18 08/26/18 11:59 11:59 11:59 11:59 Intake Total 1651 / 1651 2270 / 2270 2138 / 2138 Output Total 350 / 350 1050 / 1050 1000 / 1000 Balance 1301 / 1301 1220 / 1220 1138 / 1138 Weight 172 lb 8 oz 175 lb 3 oz 173 lb 5 oz 180 lb Microbiology Reports for the Last 24 Hours: Microbiology 08/23/18 07:28 Blood Blood Culture - Preliminary NO GROWTH AFTER 48 HOURS 08/23/18 07:28 Blood Blood Culture - Preliminary NO GROWTH AFTER 48 HOURS - *Routine Respiratory Exam Present: decreased breath sounds, CTA bilaterally. Absent: accessory muscle use, rales, rhonchi, wheezes - *Routine Cardiovascular Exam Present: irregular rhythm. Absent: murmur, gallop, rubs Progress Note: A&P (1) Anemia Status: Acute Current Visit: Yes (2) Atrial flutter Status: Acute Current Visit: Yes (3) CAP (community acquired pneumonia) Status: Acute Current Visit: Yes (4) Chronic hemolytic anemia Status: Chronic Current Visit: No (5) Cardiomyopathy Status: Acute Current Visit: Yes (6) Norovirus Status: Acute Current Visit: Yes Assessment and Plan for All Diagnoses:: Continued atrial flutter on telemetry with controlled ventricular rate. Plan for LASHAUN/cardioversion today. Continue Xarelto for elevated chads score. Amiodarone started yesterday in hopes of maintaining sinus rhythm post cardioversion today. Coronary artery disease status post coronary stenting x2 vessel, 08/25/18. Continue dual antiplatelet therapy. Cardiomyopathy with ejection fraction approximately 30%, continue Coreg, lisinopril and digoxin. Consideration for LifeVest pending results of LASHAUN today.
== END 2018-08-26 17:25 | disposition home or self-care (01) ==
LOC: ER 06:58 → 2ND 08:29
PROVIDERS: ADMIT Internal Medicine Adolescent Medicine; ATTEND Internal Medicine Adolescent Medicine

== ENCOUNTER 2018-09-20 09:43 | Observation (INO) ==
--- NOTE | 2018-09-20 10:14 | Emergency Department Note ---
ED Disposition Clinical Impression: Chronic anemia CHF (congestive heart failure) Qualifiers: Heart failure type: systolic Heart failure chronicity: acute Qualified Code(s): I50.21 - Acute systolic (congestive) heart failure Disposition: Still a Patient Condition on Discharge: Good Referrals: Provider,Referral, [Primary Care Provider] - - Critical Care Critical Care Time: No Attestation: On 09/20/18, the high probability of a clinically significant, sudden or life threatening deterioration of the following system(s) required my full and direct attention, intervention and personal management. The time I documented below is in addition to time spent performing reported procedures but includes the following listed in this critical care notation. Medical Decision Making - Benny Inquiry Pt receiving controlled substance: No Vital Signs: 09/20/18 09:47 09/20/18 09:55 09/20/18 10:16 Temperature 98.6 F 98.6 F Temperature Source Oral Oral Pulse Rate [Left Radial] 79 79 72 Respiratory Rate 18 18 Blood Pressure [Right Arm] 166/85 H 166/85 H 132/67 Blood Pressure Mean [Right Arm] 112 112 88 Blood Pressure Source [Right Arm] Automatic Cuff Automatic Cuff Automatic Cuff Blood Pressure Position [Right Arm] Supine Supine Sitting 02 Sat by Pulse Oximetry 99 99 96 Oxygen Delivery Method Room Air Room Air Room Air 09/20/18 10:30 09/20/18 11:00 09/20/18 12:00 Temperature Temperature Source Pulse Rate [Left Radial] 56 L 70 72 Respiratory Rate 16 16 16 Blood Pressure [Right Arm] 154/84 H 135/67 145/83 H Blood Pressure Mean [Right Arm] 107 89 103 Blood Pressure Source [Right Arm] Automatic Cuff Automatic Cuff Automatic Cuff Blood Pressure Position [Right Arm] Sitting Sitting Sitting 02 Sat by Pulse Oximetry 98 100 100 Oxygen Delivery Method Room Air Room Air 09/20/18 12:30 Temperature Temperature Source Pulse Rate [Left Radial] 70 Respiratory Rate 16 Blood Pressure [Right Arm] 154/94 H Blood Pressure Mean [Right Arm] 114 Blood Pressure Source [Right Arm] Automatic Cuff Blood Pressure Position [Right Arm] Sitting 02 Sat by Pulse Oximetry 99 Oxygen Delivery Method Room Air - Lab Data Lab Results 09/20/18 10:10: WBC 3.1 L, RBC 2.31 L, Hgb 7.9 L*, Hct 25.0 L, MCV 108.4 H, MCH 34.4 H, MCHC 31.8, RDW 23.5 H, Plt Count 336, MPV 8.5, Neut % (Auto) 70.5, Lymph % (Auto) 16.8, [place] % (Auto) 7.6, Eos % (Auto) 3.0, Baso % (Auto) 2.1 H, Neut # (Auto) 2.2, Lymph # (Auto) 0.5 L, [place] # (Auto) 0.2, Eos # (Auto) 0.1, Baso # (Auto) 0.1 09/20/18 10:10: Sodium 140, Potassium 4.0, Chloride 104, Carbon Dioxide 28, Anion Gap 12.0, BUN 12, Creatinine 0.92, Estimated Creat Clear 78, Estimated GFR 82, Est GFR ( Amer) 99, Glucose 152 H, Calcium 8.2 L, Total Bilirubin 0.7, AST 37, ALT 75, Alkaline Phosphatase 162 H, Total Protein 6.3 L, Albumin 3.5, Globulin 2.8, Albumin/Globulin Ratio 1.3, Digoxin 0.35 L 09/20/18 10:10: Lactate 1.1 09/20/18 10:10: B-Natriuretic Peptide 520 H 09/20/18 10:10: Troponin I < 0.02 Result diagrams: 09/20/18 10:10 09/20/18 10:10 Orders (Tests/Meds): ED MEDICATIONS Discontinued Medications Generic Name Dose Route Start Last Admin Trade Name Freq PRN Reason Stop Dose Admin Furosemide 40 mg 09/20/18 11:08 09/20/18 11:21 Lasix 40mg/4ml Vial IV 09/20/18 11:09 40 mg ONCE ONE Administration ORDERS Category Date Time Status Blood Culture Stat Micro 09/20/18 10:10 Ordered - Radiology Data #1 Image(s): Chest Image Reviewed: Yes I reviewed the patient's radiology image, Yes I have reviewed radiologist's interpretation IMPRESSION: Mild CHF with small right effusion and elevated right hemidiaphragm Dictated By: Kostas Alvarado MD Signed By: <Electronically signed by Kostas Alvarado MD in OV> 09/20/18 1043 - ECG Data Tracing #1 EKG interpreted by Maxi King MD: Rhythm: Atrial fibrillation with controlled response Rate: 74 [place]: Left Ectopy: none Conduction: normal ST Segment Changes: Nonspecific T Wave Changes: Nonspecific Q Waves: none LVH - Physician Consults Physician Consulted: Ailyn Time: 12:47 Reason -: Admission Comment/Response: Agrees to admit the patient to the hospital. We discussed the patient's clinical information, including history, exam, laboratory and radiology results and ED course. Per hospital procedure, I will write temporary bridge inpatient orders on the patient. Specific orders requested by the admitting physician: He will reassess and decide on further doses of Lasix based on urine output. Hemoglobin may improve with diuresis. Recheck CBC in the morning Medical Decision Narrative: Heart Cath: IMPRESSION: 1. Severe 2 vessel coronary artery disease as described above 2. Successful stenting of the ostial proximal LAD severe disease reduced to 0% with 1 drug-eluting stent 3. Successful stenting of the distal dominant right coronary artery severe disease reduced to 0% with 1 drug-eluting stent 4. Severe left ventricular dysfunction with severe left ventricular dilatation and elevated LVEDP PLAN: 1. Aspirin and Plavix combined with anticoagulation for atrial fibrillation flutter 2. Standard therapy for systolic heart failure 3. Lifevest should be considered 4. Avoidance of tobacco products 5. Cardiac rehabilitation 6. I would recommend LASHAUN with cardioversion tomorrow prior to discharge home Dictated By: James Watkins MD Signed By: <Electronically signed by James Watkins MD in OV> 08/25/18 1210 ECHO: CONCLUSION: 1. Moderately enlarged left atrium, mildly dilated left ventricle, reduced left ventricular systolic function, visually estimated ejection fraction approximately 30%, left ventricle is globally hypokinetic. 2. Mild mitral and tricuspid regurgitation 3. No significant pericardial effusion noted. Dictated By: Prince Vences MD Signed By: <Electronically signed by Prince Vences MD in OV> 08/25/18 1024 General Adult HPI - General Chief complaint: Shortness of Breath/Dyspnea Stated complaint: SOA, leg selling Time Seen by Provider: 09/20/18 10:22 Mode of Arrival: Ambulatory Limitations: No Limitations Description of Symptoms (Recalled from ER Triage Doc. by RN): Patient states "my legs have been swelling since his bypass about 1 month ago." He is also SOA. Noticable swelling on bilateral lower extremeties. He - History of Present Illness HPI narrative: States he has had a cough for 3 weeks. Nonproductive, but says that he vomited up some stuff several days ago that "did not look right", says it was yellow. Denies fever or chest pain. Denies shortness of breath. States that he also has swelling of his legs ever since he had "bypass" at this hospital about 3 wee ks ago. He actually had cardiac cath with stent placement. - Related Data Home Medications Medication Instructions Recorded Confirmed Citalopram Hydrobromide 20 mg PO DAILY 08/24/18 09/20/18 [Citalopram HBr] LORazepam [Ativan 0.5mg tablet] 0.5 mg PO BID 08/24/18 09/20/18 Pantoprazole Sodium [Protonix 40mg 40 mg PO DAILY 08/24/18 09/20/18 tablet] Venlafaxine HCl [Venlafaxine HCl 37.5 mg PO DAILY 08/24/18 09/20/18 ER] dilTIAZem HCl [Diltiazem 180mg 180 mg PO DAILY 08/24/18 09/20/18 24Hr ER Cap] Aspirin [Aspirin 81mg chewable 81 mg PO DAILY 09/20/18 09/20/18 tab] Bisoprolol Fumarate [Zebeta 5mg 5 mg PO BID 09/20/18 09/20/18 tablet] Clopidogrel Bisulfate [Plavix 75mg 75 mg PO DAILY 09/20/18 09/20/18 Tab] Digoxin [Digoxin 0.25mg Tablet] 250 mcg PO DAILY 09/20/18 09/20/18 Lisinopril [Zestril 5mg 5 mg PO DAILY 09/20/18 09/20/18 Tablet] Rivaroxaban [Xarelto 10mg tablet] 20 mg PO QPMWM 09/20/18 09/20/18 Allergies Allergy/AdvReac Type Severity Reaction Status Date / Time codeine [CODEINE] Allergy Unknown I-RASH Verified 08/23/18 07:18 [facility] History I have reviewed the patient's past medical history: Yes Medical History: Reports:: Atrial Fibrillation (One episode several months ago, spontaneously resolved) Denies:: Cancer, Diabetes Mellitus Type 1, Diabetes Mellitus Type 2, MRSA Other Medical History: Reports: Anemia (Hemolytic anemia, prednisone responsive, GI workup negative) Laterality Cases: Bilateral: Other Other Surgeries: Yes: Other (?SX BOTH LEGS, AND L ARM) Amputation: No Fractures: No - Social History Smoking Status: Never smoker Alcohol Intake: never Alcohol Intake Frequency:: holidays/special occasions only Substance Use Type: marijuana Occupational Status: retired Housing: apartment - Psychiatric History Expresses thoughts of harming self/others: None Suicide Plan Description: No Plan Family Hx:: Unable to obtain ROS Obtained: Yes All systems reviewed & no additional complaints - Constitutional Constitutional: Denies fever(s) - Cardiovascular Cardiovascular: Denies chest pain, Reports leg edema - Respiratory Respiratory: Yes cough, No dyspnea, No dyspnea on exertion, No excessive phlegm production Physical Exam - General General appearance: alert, in no apparent distress - Head Head exam: atraumatic, normocephalic - Eye Eye exam: Present: normal appearance - Neck Neck exam: Present: normal inspection, trachea midline - Chest Chest inspection: Present: normal inspection, symmetric chest wall rise - Respiratory Respiratory exam: Present: other (Minimal crackles right base, decreased breath sounds left base). Absent: respiratory distress - Cardiovascular Cardiovascular exam: Present: regular rate, irregular rhythm, normal heart sounds - Abdominal Exam Abdominal exam: Present: soft. Absent: distention, tenderness - Extremities Exam Extremities exam: Present: pedal edema (2-3+ pitting edema of feet and lower legs), other (No cords). Absent: calf tenderness - Neurological Exam Neurological exam: Present: alert - Psychiatric Psychiatric exam: Present: normal affect, normal mood - Skin Skin exam: Present: warm, dry
[2018-09-20 10:32] LABS: Basophils # 0.1 K/mm3 (0-0.2); Basophils % 2.1 % (0.1-2.0); Eosinophils # 0.1 K/mm3 (0.0-0.4); Lymphocytes # 0.5 K/mm3 (0.7-4.5); Lymphocytes % 16.8 % (10-50); Mean Corpuscular HGB Conc 31.8 g/dL (31.8-35.4); Mean Corpuscular Hemoglobin 34.4 pg (27.0-31.2); Mean Corpuscular Volume 108.4 fl (80-94); Mean Platelet Volume 8.5 fl (7.4-10.4); Monocytes # 0.2 K/mm3 (0.1-1.0); Monocytes % 7.6 % (1.7-9.3); Neutrophils # 2.2 K/mm3 (1.8-7.8); Neutrophils % 70.5 % (37.0-80.0); Platelet Count 336 K/mm3 (142-424); Red Blood Count 2.31 M/mm3 (4.60-6.20); Red Cell Distribution Width 23.5 % (11.5-17.5); White Blood Count 3.1 K/mm3 (4.8-10.8)
[2018-09-20 10:39] LABS: Hemoglobin 7.9 g/dL (14.1-18.0)
[2018-09-20 11:00] LABS: Albumin Level 3.5 gm/dL (3.4-5.0); Albumin/Globulin Ratio 1.3 (1.1-1.8); Bilirubin,Total 0.7 mg/dL (0.2-1.0); Calcium 8.2 mg/dL (8.5-10.1); Digoxin 0.35 ng/mL (1.15-2.56); Globulin 2.8 gm/dl (1.3-3.2); Total Protein,Serum 6.3 gm/dL (6.4-8.2)
--- NOTE | 2018-09-20 13:56 | Pharmacy Consult Notes ---
[facility] Pharmacy VTE Monitoring - Patient Demographics Admission date: 09/20/18 Report Date: 09/20/18 Time: 13:56 Allergies/Adverse Reactions: Patient Allergies codeine [CODEINE] Allergy (Unknown, Verified 08/23/18 07:18) I-RASH Height: 1.83 m Weight: 77.111 kg Patient Problems: Current Active Problems CHF (congestive heart failure) (Acute) Chronic anemia (Acute) - VTE Risk Labs: VTE Related Lab Results Hgb 7.9 g/dL (14.1-18.0) L* 09/20/18 10:10 Hct 25.0 % (42.0-52.0) L 09/20/18 10:10 Plt Count 336 K/mm3 (142-424) 09/20/18 10:10 BUN 12 mg/dL (7-18) 09/20/18 10:10 Creatinine 0.92 mg/dL (0.70-1.30) 09/20/18 10:10 Estimated Creat Clear 78 mL/min (50-200) 09/20/18 10:10 Was VTE Risk Assessment Performed: Yes VTE Score: 3 VTE Risk Level: Low Risk Clinical Trial Participant: No - Prophylaxis VTE Prophylaxis Ordered?: Yes Types of VTE Prophylaxis: TEDS Knee High
--- NOTE | 2018-09-20 17:12 | History & Physical Report ---
*Admission Date: 09/20/18 *Chief complaint: Swelling and SOA *History of present illness: 68-year-old white male with history of type 2 diabetes mellitus, autoimmune hemolytic anemia and recent ER visit for atrial fibrillation/CHF exacerbation who presented to the ER for evaluation of lower extremity edema and shortness of breath. Chest x-ray did reveal evidence of possible pulmonary edema. Previous ER visit 1 month ago with atrial fibrillation with a rapid rate that was controlled at discharge with plan for cardioversion in the outpatient setting. Patient reports he has not followed up with cardiology as of yet. In the ER patient noted to have volume overload. Admitted to medicine for further ma nagement and diuresis. Given 80 mg of Lasix. Blood pressure stable with rate control A. fib noted on EKG Denies chest pain, cough, nausea or vomiting, syncope. Complains of swelling in his legs, dyspnea with exertion. He is a poor historian. However he is pleasantly confused [facility] History I have reviewed the patient's past medical history: Yes Medical History: Reports:: Atrial Fibrillation (One episode several months ago, spontaneously resolved), Congestive Heart Failure, Hypertension Denies:: Cancer, Diabetes Mellitus Type 1, Diabetes Mellitus Type 2, MRSA Other Medical History: Reports: Anemia (Hemolytic anemia, prednisone responsive, GI workup negative) Laterality Cases: Bilateral: Other Other Surgeries: Yes: Other (?SX BOTH LEGS, AND L ARM) Amputation: No Fractures: No - *Social History Educational Level: Attended High School Smoking Status: Former smoker Alcohol Intake: never Alcohol Intake Frequency:: holidays/special occasions only Substance Use Type: marijuana Occupational Status: retired Housing: house Household Members: none - Psychiatric History Expresses thoughts of harming self/others: None Suicide Plan Description: No Plan *Family Hx:: Unable to obtain Review of Systems - Review of Systems Review of systems:: pertinent systems reviewed and negative unless documented below Meds Home Medications Medication Instructions Recorded Confirmed Type Citalopram Hydrobromide 20 mg PO DAILY 08/24/18 09/20/18 History [Citalopram HBr] Pantoprazole Sodium [Protonix 40mg 40 mg PO DAILY 08/24/18 09/20/18 History tablet] Venlafaxine HCl [Venlafaxine HCl 37.5 mg PO DAILY 08/24/18 09/20/18 History ER] Aspirin [Aspirin 81mg chewable 81 mg PO DAILY 09/20/18 09/20/18 History tab] Bisoprolol Fumarate [Zebeta 5mg 5 mg PO BID 09/20/18 09/20/18 History tablet] Clopidogrel Bisulfate [Plavix 75mg 75 mg PO DAILY 09/20/18 09/20/18 History Tab] Digoxin [Digoxin 0.25mg Tablet] 250 mcg PO DAILY 09/20/18 09/20/18 History LORazepam [Ativan 1mg tablet] 0.5 mg PO BID 09/20/18 09/20/18 History Lisinopril/Hydrochlorothiazide 1 tab PO DAILY 09/20/18 09/20/18 History [Lisinopril-Hctz 20-12.5 mg Tab] Rivaroxaban [Xarelto 10mg tablet] 20 mg PO QPMWM 09/20/18 09/20/18 History Allergies Allergy/AdvReac Type Severity Reaction Status Date / Time codeine [CODEINE] Allergy Unknown I-RASH Verified 08/23/18 07:18 Exam Vital signs and Labs for Last 24 Hours: Temp Pulse Resp BP Pulse Ox 98.1 F 64 17 139/78 97 09/20/18 16:00 09/20/18 16:00 09/20/18 16:00 09/20/18 16:00 09/20/18 16:00 Laboratory Results - last 24 hr 09/20/18 10:10: WBC 3.1 L, RBC 2.31 L, Hgb 7.9 L*, Hct 25.0 L, MCV 108.4 H, MCH 34.4 H, MCHC 31.8, RDW 23.5 H, Plt Count 336, MPV 8.5, Neut % (Auto) 70.5, Lymph % (Auto) 16.8, [place] % (Auto) 7.6, Eos % (Auto) 3.0, Baso % (Auto) 2.1 H, Neut # (Auto) 2.2, Lymph # (Auto) 0.5 L, [place] # (Auto) 0.2, Eos # (Auto) 0.1, Baso # (Auto) 0.1 09/20/18 10:10: Sodium 140, Potassium 4.0, Chloride 104, Carbon Dioxide 28, Anion Gap 12.0, BUN 12, Creatinine 0.92, Estimated Creat Clear 78, Estimated GFR 82, Est GFR ( Amer) 99, Glucose 152 H, Calcium 8.2 L, Total Bilirubin 0.7, AST 37, ALT 75, Alkaline Phosphatase 162 H, Total Protein 6.3 L, Albumin 3.5, Globulin 2.8, Albumin/Globulin Ratio 1.3, Digoxin 0.35 L 09/20/18 10:10: Lactate 1.1 09/20/18 10:10: B-Natriuretic Peptide 520 H 09/20/18 10:10: Troponin I < 0.02 I & O for Last 24 hours: Intake & Output 09/17/18 09/18/18 09/19/18 09/20/18 23:59 23:59 23:59 23:59 Intake Total 240 / 240 Output Total 450 / 450 Balance -210 / -210 Weight 77.111 kg Narrative: He is alert. Somewhat difficult to focus on his history. Oropharynx clear, no JVD. No other neck pathology noted. Lungs have good air movement, crackles in both bases. Heart rate currently regular in the low 70s. Abdomen soft, non tender Good distal perfusion. No cranial nerve deficits, able to move all extremities well. 1+ edema laterally lower extremities Assessment and Plan (1) Acute on chronic systolic heart failure, NYHA class 2 Current visit: No Status: Acute Category: Medical Code(s): I50.23 - Acute on chronic systolic (congestive) heart failure Patient not on diuretic at home. Suspect volume overloaded due to need for better volume control. -Diuresis ordered Lasix today. Reassess in the morning, goal net -1000 mL's in the next 24 hours -Sitter repeat diuresis tomorrow (2) Atrial flutter Current visit: No Status: Chronic Qualifiers: Atrial flutter type: unspecified Qualified Code(s): I48.92 - Unspecified at [facility] flutter Category: Medical Code(s): I48.92 - Unspecified atrial flutter Has not followed up with cardiology as of yet. Continue rate control as ordered. -Consult cardiology for the morning to assess need for cardioversion (3) Chronic hemolytic anemia Current visit: No Status: Chronic Category: Medical Code(s): D58.9 - Hereditary hemolytic anemia, unspecified Acute on chronic worsening, likely due to volume overload. Reassess with morning labs, consider transfusion if symptomatic.
[2018-09-21 06:25] LABS: Basophils % 1.1 % (0.1-2.0); Eosinophils # 0.1 K/mm3 (0.0-0.4); Lymphocytes # 0.6 K/mm3 (0.7-4.5); Lymphocytes % 19.9 % (10-50); Mean Corpuscular HGB Conc 31.4 g/dL (31.8-35.4); Mean Corpuscular Hemoglobin 34.3 pg (27.0-31.2); Mean Corpuscular Volume 109.5 fl (80-94); Mean Platelet Volume 8.8 fl (7.4-10.4); Monocytes # 0.3 K/mm3 (0.1-1.0); Monocytes % 9.9 % (1.7-9.3); Neutrophils # 1.9 K/mm3 (1.8-7.8); Neutrophils % 65.2 % (37.0-80.0); Platelet Count 279 K/mm3 (142-424); Red Blood Count 2.19 M/mm3 (4.60-6.20); Red Cell Distribution Width 23.3 % (11.5-17.5)
[2018-09-21 06:27] LABS: Hemoglobin 7.5 g/dL (14.1-18.0)
[2018-09-21 06:28] LABS: Hematocrit 23.9 % (42.0-52.0)
[2018-09-21 06:32] LABS: Anion Gap 9.7 mEq/L (5-15); Calcium 8.3 mg/dL (8.5-10.1); Potassium 3.7 mmoL/L (3.5-5.1)
--- NOTE | 2018-09-21 09:14 | Consult Report ---
History of Present Illness Consult date: 09/21/18 Requesting physician: Jose Robertson Consult reason: congestive heart failure Chief complaint: SOA Additional Medical History:: 1. DM, Type 2 2. Autoimmune Hemolytic Anemia A. History of previous Hematology workups with recommendations for prednisone therapy. Pt stopped prednisone because "it was too strong." B. History of negative GI work up for possible blood loss 3. HTN 4. CHF, 09/2018 5. CAD A. 08/2018, 1. The left main artery normal 2. The left anterior descending artery has an ostial proximal 70-80% stenosis 3. The circumflex artery is nondominant yet still a large vessel with a mid vessel 40% stenosis 4. The right coronary artery is a dominant vessel and has severe 80% distal stenosis 5. The DAIGLE ventriculogram reveals severe left ventricular dilatation with severely decreased ejection fraction estimated at 25% 6. The left ventricular end-diastolic pressure 25 mmHg IMPRESSION: 1. Severe 2 vessel coronary artery disease as described above 2. Successful stenting of the ostial proximal LAD severe disease reduced to 0% with 1 drug-eluting stent 3. Successful stenting of the distal dominant right coronary artery severe disease reduced to 0% with 1 drug-eluting stent 4. Severe left ventricular dysfunction with severe left ventricular dilatation and elevated LVEDP History of present illness: 68-year-old white male with history of type 2 diabetes mellitus, autoimmune hemolytic anemia and recent ER visit for atrial fibrillation/CHF exacerbation who presented to the ER for evaluation of lower extremity edema and shortness of breath. Chest x-ray did reveal evidence of possible pulmonary edema. Previous ER visit 1 month ago with atrial fibrillation with a rapid rate that was controlled at discharge with plan for cardioversion in the outpatient setting. Patient reports he has not followed up with cardiology as of yet. In the ER patient noted to have volume overload. Admitted to medicine for further management and diuresis. Given 80 mg of Lasix. Blood pressure stable with rate control A. fib noted on EKG Denies chest pain, cough, nausea or vomiting, syncope. Complains of swelling in his legs, dyspnea with exertion. He is a poor historian. However he is pleasantly confused The above per Dr. Robertson Patient has had significant improvement in shortness of breath and lower extremity edema overnight with the Lasix. Agree with discharge home on daily Lasix therapy. Patient relates that he is illiterate and is unsure of what medications he is actually taking. [facility] History Medical History: Reports:: Atrial Fibrillation (One episode several months ago, spontaneously resolved), Congestive Heart Failure, Hypertension Denies:: Cancer, Diabetes Mellitus Type 1, Diabetes Mellitus Type 2, MRSA Other Medical History: Reports: Anemia (Hemolytic anemia, prednisone responsive, GI workup negative) Laterality Cases: Bilateral: Other Other Surgeries: Yes: Other (?SX BOTH LEGS, AND L ARM) Amputation: No Fractures: No - *Social History Educational Level: Attended High School Smoking Status: Former smoker Alcohol Intake: never Alcohol Intake Frequency:: holidays/special occasions only Substance Use Type: marijuana Occupational Status: retired Housing: house Household Members: none - Psychiatric History Expresses thoughts of harming self/others: None Suicide Plan Description: No Plan *Family Hx:: Unable to obtain Meds Home Medications Medication Instructions Recorded Confirmed Type Citalopram Hydrobromide 20 mg PO DAILY 08/24/18 09/20/18 History [Citalopram HBr] Pantoprazole Sodium [Protonix 40mg 40 mg PO DAILY 08/24/18 09/20/18 History tablet] Venlafaxine HCl [Venlafaxine HCl 37.5 mg PO DAILY 08/24/18 09/20/18 History ER] Aspirin [Aspirin 81mg chewable 81 mg PO DAILY 09/20/18 09/20/18 History tab] Bisoprolol Fumarate [Zebeta 5mg 5 mg PO BID 09/20/18 09/20/18 History tablet] Clopidogrel Bisulfate [Plavix 75mg 75 mg PO DAILY 09/20/18 09/20/18 History Tab] Digoxin [Digoxin 0.25mg Tablet] 250 mcg PO DAILY 09/20/18 09/20/18 History LORazepam [Ativan 1mg tablet] 0.5 mg PO BID 09/20/18 09/20/18 History Lisinopril/Hydrochlorothiazide 1 tab PO DAILY 09/20/18 09/20/18 History [Lisinopril-Hctz 20-12.5 mg Tab] Rivaroxaban [Xarelto 10mg tablet] 20 mg PO QPMWM 09/20/18 09/20/18 History Allergies Allergy/AdvReac Type Severity Reaction Status Date / Time codeine [CODEINE] Allergy Unknown I-RASH Verified 08/23/18 07:18 Review of Systems - *Cardiovascular Reports shortness of breath with activity - *Respiratory Reports shortness of breath with activity - *Gastrointestinal Denies abdominal pain - *Genitourinary Denies blood in urine - *Musculoskeletal Denies joint pain Exam Vital signs and Labs for Last 24 Hours: Temp Pulse Resp BP Pulse Ox 97.7 F 89 18 152/80 H 100 09/21/18 08:00 09/21/18 08:00 09/21/18 08:00 09/21/18 08:00 09/21/18 08:00 Laboratory Results - last 24 hr 09/20/18 10:10: WBC 3.1 L, RBC 2.31 L, Hgb 7.9 L*, Hct 25.0 L, MCV 108.4 H, MCH 34.4 H, MCHC 31.8, RDW 23.5 H, Plt Count 336, MPV 8.5, Neut % (Auto) 70.5, Lymph % (Auto) 16.8, [place] % (Auto) 7.6, Eos % (Auto) 3.0, Baso % (Auto) 2.1 H, Neut # (Auto) 2.2, Lymph # (Auto) 0.5 L, [place] # (Auto) 0.2, Eos # (Auto) 0.1, Baso # (Auto) 0.1 09/20/18 10:10: Sodium 140, Potassium 4.0, Chloride 104, Carbon Dioxide 28, Ani on Gap 12.0, BUN 12, Creatinine 0.92, Estimated Creat Clear 78, Estimated GFR 82, Est GFR ( Amer) 99, Glucose 152 H, Calcium 8.2 L, Total Bilirubin 0.7, AST 37, ALT 75, Alkaline Phosphatase 162 H, Total Protein 6.3 L, Albumin 3.5, Globulin 2.8, Albumin/Globulin Ratio 1.3, Digoxin 0.35 L 09/20/18 10:10: Lactate 1.1 09/20/18 10:10: B-Natriuretic Peptide 520 H 09/20/18 10:10: Troponin I < 0.02 09/21/18 05:35: WBC 3.0 L, RBC 2.19 L, Hgb 7.5 L*, Hct 23.9 L*, MCV 109.5 H, MCH 34.3 H, MCHC 31.4 L, RDW 23.3 H, Plt Count 279, MPV 8.8, Neut % (Auto) 65.2, Lymph % (Auto) 19.9, [place] % (Auto) 9.9 H, Eos % (Auto) 4.0, Baso % (Auto) 1.1, Neut # (Auto) 1.9, Lymph # (Auto) 0.6 L, [place] # (Auto) 0.3, Eos # (Auto) 0.1, Baso # (Auto) 0.0 09/21/18 05:35: Sodium 141, Potassium 3.7, Chloride 105, Carbon Dioxide 30, Anion Gap 9.7, BUN 13, Creatinine 0.86, Estimated Creat Clear 78, Estimated GFR 89, Est GFR ( Amer) 107, Glucose 101 D, Calcium 8.3 L I & O for Last 24 hours: Intake & Output 09/18/18 09/19/18 09/20/18 09/21/18 11:59 11:59 11:59 11:59 Intake Total 600 / 600 Output Total 450 / 450 Balance 150 / 150 Weight 170 lb 356 lb 0.745 oz - *Routine Neck Exam Present: supple. Absent: JVD, carotid bruit - *Routine Respiratory Exam Present: CTA bilaterally. Absent: accessory muscle use, rales, rhonchi, wheezes - *Routine Cardiovascular Exam Present: irregularly irregular. Absent: murmur, gallop, rubs - *Routine Abdominal Exam Present: soft. Absent: tenderness, distended, guarding - *Routine Extremities Exam Absent: edema, calf tenderness - *Routine Neurological Exam Present: alert, oriented X3, moving all extremities Assessment and Plan (1) Acute on chronic systolic heart failure, NYHA class 2 Current visit: No Status: Acute Category: Medical Code(s): I50.23 - Acute on chronic systolic (congestive) heart failure (2) Atrial flutter Current visit: No Status: Chronic Qualifiers: Atrial flutter type: unspecified Qualified Code(s): I48.92 - Unspecified atrial flutter Category: Medical Code(s): I48.92 - Unspecified atrial flutter (3) Chronic hemolytic anemia Current visit: No Status: Chronic Category: Medical Code(s): D58.9 - Hereditary hemolytic anemia, unspecified - Assessment and plan all Dx Assessment and Plan for all problems:: Coronary artery disease clinically stable at this time. Acute on chronic congestive heart failure felt secondary to dietary noncompliance. Discussed salt restriction and need for daily diuretic therapy. Encouraged patient to follow-up with us in the office next week. Regarding the patient's atrial fibrillation, he is on Xarelto therapy along with his dual antiplatelet therapy for his recent coronary artery stenting last month. Patient initially was started on amiodarone at the last hospitalization but he is not on that currently. His rate is controlled on beta-arnold therapy. We will consider cardioversion in the future if needed. Okay for discharge home from cardiology standpoint. Continue home medications with addition of Lasix as already ordered. Follow-up in 1 week.
--- NOTE | 2018-09-21 09:23 | Discharge Summary ---
General - General Admission date:: 09/20/18 Discharge date: 09/21/18 HPI HPI: 68-year-old white male with history of type 2 diabetes mellitus, autoimmune hemolytic anemia and recent ER visit for atrial fibrillation/CHF exacerbation who presented to the ER for evaluation of lower extremity edema and shortness of breath. Chest x-ray did reveal evidence of possible pulmonary edema. Previous ER visit 1 month ago with atrial fibrillation with a rapid rate that was controlled at discharge with plan for cardioversion in the outpatient setting. Patient reports he has not followed up with cardiology as of yet. In the ER patient noted to have volume overload. Admitted to medicine for further management and diuresis. Given 80 mg of Lasix. Blood pressure stable with rate control A. fib noted on EKG Denies chest pain, cough, nausea or vomiting, syncope. Complains of swelling in his legs, dyspnea with exertion. He is a poor historian. However he is pleasantly confused Hospital Course Hospital Course: Patient was admitted overnight, diuresed with IV Lasix. Did very nicely with this. Had good urine output and this morning feels well. Hemoglobin is essentially unsure baseline with his autoimmune hemolytic anemia. Heart rate remained regular through the night although EKG reveals underlying atrial fib/flutter. However rate control is adequate. Given patient's history of cardiomyopathy and current well managed rate control, he will be discharged home on twice daily Lasix as a regular therapy. Complicating factors include significant medical noncompliance and his hemolytic anemia. Plan will be to discharge him on twice daily Lasix and follow-up with cardiology in 1 week. Objective Vital signs: Temp Pulse Resp BP Pulse Ox 97.7 F 89 18 152/80 H 100 09/21/18 08:00 09/21/18 08:00 09/21/18 08:00 09/21/18 08:00 09/21/18 08:00 Narrative: Patient is pleasant, oriented x2. A little fuzzy about the date but that is baseline. Lungs have good air movement. Heart rate regular with occasional ectopic beat on exam. Please note EKG shows underlying atrial fibrillation but rate is well contro lled. Abdomen soft and nontender. No edema. Moves all extremities well. Cranial nerves symmetric. Results Labs on day of discharge: Labs from last 24 hours 09/21/18 09/21/18 09/20/18 05:35 05:35 10:10 WBC 3.0 L RBC 2.19 L Hgb 7.5 L* Hct 23.9 L* MCV 109.5 H MCH 34.3 H MCHC 31.4 L RDW 23.3 H Plt Count 279 MPV 8.8 Neut % (Auto) 65.2 Lymph % (Auto) 19.9 [place] % (Auto) 9.9 H Eos % (Auto) 4.0 Baso % (Auto) 1.1 Neut # (Auto) 1.9 Lymph # (Auto) 0.6 L [place] # (Auto) 0.3 Eos # (Auto) 0.1 Baso # (Auto) 0.0 Sodium 141 Potassium 3.7 Chloride 105 Carbon Dioxide 30 Anion Gap 9.7 BUN 13 Creatinine 0.86 Estimated Creat Clear 78 Estimated GFR 89 Est GFR ( Amer) 107 Glucose 101 D Lactate Calcium 8.3 L Total Bilirubin AST ALT Alkaline Phosphatase Troponin I < 0.02 B-Natriuretic Peptide Total Protein Albumin Globulin Albumin/Globulin Ratio Digoxin 09/20/18 09/20/18 09/20/18 10:10 10:10 10:10 WBC RBC Hgb Hct MCV MCH MCHC RDW Plt Count MPV Neut % (Auto) Lymph % (Auto) [place] % (Auto) Eos % (Auto) Baso % (Auto) Neut # (Auto) Lymph # (Auto) [place] # (Auto) Eos # (Auto) Baso # (Auto) Sodium 140 Potassium 4.0 Chloride 104 Carbon Dioxide 28 Anion Gap 12.0 BUN 12 Creatinine 0.92 Estimated Creat Clear 78 Estimated GFR 82 Est GFR ( Amer) 99 Glucose 152 H Lactate 1.1 Calcium 8.2 L Total Bilirubin 0.7 AST 37 ALT 75 Alkaline Phosphatase 162 H Troponin I B-Natriuretic Peptide 520 H Total Protein 6.3 L Albumin 3.5 Globulin 2.8 Albumin/Globulin Ratio 1.3 Digoxin 0.35 L 09/20/18 10:10 WBC 3.1 L RBC 2.31 L Hgb 7.9 L* Hct 25.0 L MCV 108.4 H MCH 34.4 H MCHC 31.8 RDW 23.5 H Plt Count 336 MPV 8.5 Neut % (Auto) 70.5 Lymph % (Auto) 16.8 [place] % (Auto) 7.6 Eos % (Auto) 3.0 Baso % (Auto) 2.1 H Neut # (Auto) 2.2 Lymph # (Auto) 0.5 L [place] # (Auto) 0.2 Eos # (Auto) 0.1 Baso # (Auto) 0.1 Sodium Potassium Chloride Carbon Dioxide Anion Gap BUN Creatinine Estimated Creat Clear Estimated GFR Est GFR ( Amer) Glucose Lactate Calcium Total Bilirubin AST ALT Alkaline Phosphatase Troponin I B-Natriuretic Peptide Total Protein Albumin Globulin Albumin/Globulin Ratio Digoxin DS: Diagnosis - Discharge Diagnosis (1) Acute on chronic systolic heart failure, NYHA class 2 Status: Acute (2) Atrial flutter Status: Chronic (3) Chronic hemolytic anemia Status: Chronic Discharge Plan - Patient Discharge Instructions ACTIVITY: Continue current activity DIET: continue same diet Patient Instructions: DI for Heart Failure, DI for Anemia of Chronic Disease - Follow up Plan Follow up with: James Watkins MD [Staff Physician] - Disposition: Home, Self-Skilled Nursing Medications: Home Medications Medication Instructions Recorded Confirmed Type Citalopram Hydrobromide 20 mg PO DAILY 08/24/18 09/20/18 History [Citalopram HBr] Pantoprazole Sodium [Protonix 40mg 40 mg PO DAILY 08/24/18 09/20/18 History tablet] Venlafaxine HCl [Venlafaxine HCl 37.5 mg PO DAILY 08/24/18 09/20/18 History ER] Aspirin [Aspirin 81mg chewable 81 mg PO DAILY 09/20/18 09/20/18 History tab] Bisoprolol Fumarate [Zebeta 5mg 5 mg PO BID 09/20/18 09/20/18 History tablet] Clopidogrel Bisulfate [Plavix 75mg 75 mg PO DAILY 09/20/18 09/20/18 History Tab] Digoxin [Digoxin 0.25mg Tablet] 250 mcg PO DAILY 09/20/18 09/20/18 History LORazepam [Ativan 1mg tablet] 0.5 mg PO BID 09/20/18 09/20/18 History Lisinopril/Hydrochlorothiazide 1 tab PO DAILY 09/20/18 09/20/18 History [Lisinopril-Hctz 20-12.5 mg Tab] Rivaroxaban [Xarelto 10mg tablet] 20 mg PO QPMWM 09/20/18 09/20/18 History Prescriptions/Medication Reconciliation: New Furosemide [Lasix 20mg tab] 20 mg PO BIDL #60 tab Continue Pantoprazole Sodium [Protonix 40mg tablet] 40 mg PO DAILY Venlafaxine HCl [Venlafaxine HCl ER] 37.5 mg PO DAILY Digoxin [Digoxin 0.25mg Tablet] 250 mcg PO DAILY Clopidogrel Bisulfate [Plavix 75mg Tab] 75 mg PO DAILY Bisoprolol Fumarate [Zebeta 5mg tablet] 5 mg PO BID Aspirin [Aspirin 81mg chewable tab] 81 mg PO DAILY LORazepam [Ativan 1mg tablet] 0.5 mg PO BID Citalopram Hydrobromide [Citalopram HBr] 20 mg PO DAILY Rivaroxaban [Xarelto 10mg tablet] 20 mg PO QPMWM Lisinopril/Hydrochlorothiazide [Lisinopril-Hctz 20-12.5 mg Tab] 1 tab PO DAILY
== END 2018-09-21 09:55 | disposition home or self-care (01) ==
LOC: ER 09:43 → 2ND 12:50 → INTOOBSV 12:51 → 2ND 13:27
PROVIDERS: ADMIT Internal Medicine Adolescent Medicine; ATTEND Internal Medicine Adolescent Medicine

== ENCOUNTER 2018-10-07 11:31 | Inpatient (IN) ==
[2018-10-07 12:21] LABS: Basophils # 0.1 K/mm3 (0-0.2); Basophils % 1.7 % (0.1-2.0); Eosinophils # 0.1 K/mm3 (0.0-0.4); Lymphocytes # 0.8 K/mm3 (0.7-4.5); Mean Corpuscular HGB Conc 32.9 g/dL (31.8-35.4); Mean Corpuscular Hemoglobin 34.3 pg (27.0-31.2); Mean Corpuscular Volume 104.3 fl (80-94); Mean Platelet Volume 8.9 fl (7.4-10.4); Monocytes # 0.4 K/mm3 (0.1-1.0); Monocytes % 13.7 % (1.7-9.3); Neutrophils # 1.7 K/mm3 (1.8-7.8); Neutrophils % 55.5 % (37.0-80.0); Platelet Count 311 K/mm3 (142-424); Red Blood Count 1.71 M/mm3 (4.60-6.20); Red Cell Distribution Width 21.3 % (11.5-17.5); White Blood Count 3.1 K/mm3 (4.8-10.8)
[2018-10-07 12:27] LABS: Alanine Aminotransferase 95 U/L (12-78); Albumin Level 3.9 gm/dL (3.4-5.0); Albumin/Globulin Ratio 1.3 (1.1-1.8); Alkaline Phosphatase 157 U/L (46-116); Anion Gap 11.9 mEq/L (5-15); Aspartate Amino Transferase 45 U/L (15-37); Bilirubin,Total 0.7 mg/dL (0.2-1.0); Blood Urea Nitrogen 19 mg/dL (7-18); Calcium 8.8 mg/dL (8.5-10.1); Carbon Dioxide 32 mmol/L (21.0-32.0); Chloride 101 mmol/L (98-107); Glucose 141 mg/dL (74-106); Hemoglobin 5.9 g/dL (14.1-18.0); Potassium 3.9 mmoL/L (3.5-5.1); Sodium 141 mmol/L (136-145); Total Protein,Serum 6.9 gm/dL (6.4-8.2)
--- NOTE | 2018-10-07 12:33 | Emergency Department Note ---
ED Disposition Clinical Impression: Altered mental status, Anemia Disposition: Admitted as Observation Condition on Discharge: Good Instructions: DI for Altered Mental Status Referrals: Aron Cabrera MD [Primary Care Provider] - Time of Disposition: 13:45 - Critical Care Critical Care Time: No Attestation: On 10/07/18, the high probability of a clinically significant, sudden or life threatening deterioration of the following system(s) required my full and direct attention, intervention and personal management. The time I documented below is in addition to time spent performing reported procedures but includes the following listed in this critical care notation. Medical Decision Making - Medical Records Medical records reviewed: Yes: I reviewed the patient's medical records. - Benny Inquiry Pt receiving controlled substance: No Benny was queried for this patient: No Vital Signs: 10/07/18 11:46 10/07/18 12:02 Temperature 98.1 F Temperature Source Oral Pulse Rate [Right Brachial] 68 Respiratory Rate 15 Blood Pressure [Right Arm] 142/53 H 138/61 Blood Pressure Mean [Right Arm] 82 86 Blood Pressure Source [Right Arm] Automatic Cuff Blood Pressure Position [Right Arm] Sitting 02 Sat by Pulse Oximetry 97 Oxygen Delivery Method Room Air - Lab Data Lab Results 10/07/18 11:46: WBC 3.1 L, RBC 1.71 L*, Hgb 5.9 L*, Hct 18.0 L*, MCV 104.3 H, MCH 34.3 H, MCHC 32.9, RDW 21.3 H, Plt Count 311, MPV 8.9, Neut % (Auto) 55.5, Lymph % (Auto) 26.0, [place] % (Auto) 13.7 H, Eos % (Auto) 3.0, Baso % (Auto) 1.7, Neut # (Auto) 1.7 L, Lymph # (Auto) 0.8, [place] # (Auto) 0.4, Eos # (Auto) 0.1, Baso # (Auto) 0.1 10/07/18 11:46: Sodium 141, Potassium 3.9, Chloride 101, Carbon Dioxide 32, Anio n Gap 11.9, BUN 19 H, Creatinine 1.31 H, Estimated Creat Clear 56, Estimated GFR 55 L, Est GFR ( Amer) 66, Glucose 141 H, Calcium 8.8, Total Bilirubin 0.7, AST 45 H, ALT 95 H, Alkaline Phosphatase 157 H, Troponin I < 0.02, Total Protein 6.9, Albumin 3.9, Globulin 3.0, Albumin/Globulin Ratio 1.3 10/07/18 11:46: B-Natriuretic Peptide 151 H 10/07/18 12:48: Hgb 4.9 L*, Hct 15.5 L* 10/07/18 13:10: Stool Occult Blood Negative Result diagrams: 10/07/18 12:48 10/07/18 11:46 Orders (Tests/Meds): ED MEDICATIONS Generic Name Dose Route Start Last Admin Trade Name Freq PRN Reason Stop Dose Admin Sodium Chloride 1,000 mls @ 999 mls/hr 10/07/18 12:45 10/07/18 12:39 Sod Chlor 0.9% 1000ml Bag IV 10/07/18 13:45 999 mls/hr .Q1H1M BRIANNA Administration Sodium Chloride 250 mls @ 25 mls/hr 10/07/18 13:30 Sod Chlor 0.9% 250ml Bag IV 10/08/18 13:29 .Q10H BRIANNA Discontinued Medications Generic Name Dose Route Start Last Admin Trade Name Freq PRN Reason Stop Dose Admin Ondansetron HCl 4 mg 10/07/18 12:37 10/07/18 12:38 Zofran 4mg/2ml Vial IV 10/07/18 12:38 4 mg ONCE ONE Administration ORDERS Category Date Time Status Transfuse RBC's [Red Blood Cells] Stat BBK 10/07/18 13:28 Ordered Type and Screen Stat BBK 10/07/18 13:28 Ordered Ammonia Stat Lab 10/07/18 13:03 Ordered Occult Blood,Stool Stat Lab 10/07/18 13:20 Ordered Urinalysis and Microscopic Stat Lab 10/07/18 12:04 Ordered Altered Mental Status HPI - General Chief Complaint: Altered Mental Status Stated Complaint: dizzy Time Seen by Provider: 10/07/18 11:55 Mode of Arrival: Ambulatory Limitations: slow to ambulate Description of Symptoms (Recalled from ER Triage Doc. by RN): reports stumbling around increasingly worse: states he is having difficulty gathering his thoughts to speak his information to this nurse - History of Present Illness MD complaint: altered mental status, confusion Onset (ago): unknown Severity: moderate Consistency of symptoms: getting worse, constant Context: change in medication Associated symptoms: cough - Related Data Home Medications Medication Instructions Recorded Confirmed Citalopram Hydrobromide 20 mg PO DAILY 08/24/18 10/07/18 [Citalopram HBr] Pantoprazole Sodium [Protonix 40mg 40 mg PO DAILY 08/24/18 10/07/18 tablet] Venlafaxine HCl [Venlafaxine HCl 37.5 mg PO DAILY 08/24/18 10/07/18 ER] Aspirin [Aspirin 81mg chewable 81 mg PO DAILY 09/20/18 10/07/18 tab] Bisoprolol Fumarate [Zebeta 5mg 5 mg PO BID 09/20/18 10/07/18 tablet] Clopidogrel Bisulfate [Plavix 75mg 75 mg PO DAILY 09/20/18 10/07/18 Tab] Digoxin [Digoxin 0.25mg Tablet] 250 mcg PO DAILY 09/20/18 10/07/18 LORazepam [Ativan 1mg tablet] 0.5 mg PO BID 09/20/18 10/07/18 Lisinopril/Hydrochlorothiazide 1 tab PO DAILY 09/20/18 10/07/18 [Lisinopril-Hctz 20-12.5 mg Tab] Rivaroxaban [Xarelto 10mg tablet] 20 mg PO QPMWM 09/20/18 10/07/18 Furosemide [Lasix 20mg tab] 20 mg PO BIDL 10/07/18 10/07/18 Allergies Allergy/AdvReac Type Severity Reaction Status Date / Time codeine [CODEINE] Allergy Unknown I-RASH Verified 08/23/18 07:18 [facility] History I have reviewed the patient's past medical history: Yes Medical History: Reports:: Atrial Fibrillation (One episode several months ago, spontaneously resolved), Congestive Heart Failure, Hypertension Denies:: Cancer, Diabetes Mellitus Type 1, Diabetes Mellitus Type 2, MRSA Other Medical History: Reports: Anemia (Hemolytic anemia, prednisone responsive, GI workup negative) Laterality Cases: Bilateral: Other Other Surgeries: Yes: Other (?SX BOTH LEGS, AND L ARM) Amputation: No Fractures: No - Social History Educational Level: Completed High School Smoking Status: Former smoker Tobacco Type: cigarettes Alcohol Intake: never Alcohol Intake Frequency:: holidays/special occasions only Substance Use Type: marijuana Occupational Status: retired Housing: house Household Members: none - Psychiatric History Expresses thoughts of harming self/others: None Suicide Plan Description: No Plan Family Hx:: Unable to obtain ROS Obtained: Yes All systems reviewed & no additional complaints - Constitutional Constitutional: Reports system reviewed and no additional complaints, except as docu, Denies body ache, Reports poor appetite, Reports lethargy, Reports malaise, Reports weakness - Eyes Eyes: Reports system reviewed and no additional complaints, except as docu - ENT Ears, Nose, Mouth, and Throat: Reports system reviewed and no additional complaints, except as docu - Cardiovascular Cardiovascular: Reports system reviewed and no additional complaints, except as docu, Denies chest pain, Denies chest pain at rest, Denies chest pain with activity, Denies diaphoresis, Denies dyspnea, Denies dyspnea on exertion - Respiratory Respiratory: Yes system reviewed and no additional complaints, except as docu, Yes chest congestion, Yes cough - Gastrointestinal Gastrointestingal: Denies: abdominal pain, belching, bloating, black, tarry stools - Genitourinary Male Genitourinary: Denies difficulty urinating, Denies flank pain - Neurologic Neurologic: Reports abnormal gait, Reports abnormal speech, Reports behavioral changes, Denies seizure-like activity, Denies syncope Physical Exam - General General appearance: in no apparent distress, other Comment: disoriented to day of week, year, month. Knows his ss number, address, date of and remote events - Head Head exam: atraumatic - Eye Eye exam: Present: normal appearance - ENT ENT exam: Present: normal exam, normal oropharynx, mucous membranes moist - Neck Neck exam: Present: normal inspection - Respiratory Respiratory exam: Present: normal lung sounds bilaterally. Absent: respiratory distress, wheezes - Cardiovascular Cardiovascular exam: Present: regular rate, normal rhythm. Absent: irregular rhythm - Abdominal Exam Abdominal exam: Present: soft, distention. Absent: tenderness, guarding, mass - Extremities Exam Extremities exam: Present: full ROM. Absent: tenderness - Neurological Exam Neurological exam: Present: alert, CN II-XII intact, other (slow to respond, appears confused, disoriented to recent events. Drove himself here he feels without difficulty, yet unable to give me the name of his private physician.). Absent: oriented X3, normal gait, motor sensory deficit - Psychiatric Psychiatric exam: Present: normal affect, normal mood - Skin Skin exam: Present: warm, dry, intact
[2018-10-07 13:02] LABS: Hematocrit 15.5 % (42.0-52.0); Hemoglobin 4.9 g/dL (14.1-18.0)
--- NOTE | 2018-10-07 14:12 | Pharmacy Consult Notes ---
[facility] Pharmacy VTE Monitoring - Patient Demographics Admission date: 10/07/18 Report Date: 10/07/18 Time: 14:12 Allergies/Adverse Reactions: Patient Allergies codeine [CODEINE] Allergy (Unknown, Verified 08/23/18 07:18) I-RASH Height: 1.63 m Weight: 72.575 kg Patient Problems: Current Active Problems Anemia (Chronic) Altered mental status (Acute) - VTE Risk Labs: VTE Related Lab Results Hgb 4.9 g/dL (14.1-18.0) L* 10/07/18 12:48 Hct 15.5 % (42.0-52.0) L* 10/07/18 12:48 Plt Count 311 K/mm3 (142-424) 10/07/18 11:46 BUN 19 mg/dL (7-18) H 10/07/18 11:46 Creatinine 1.31 mg/dL (0.70-1.30) H 10/07/18 11:46 Estimated Creat Clear 56 mL/min (50-200) 10/07/18 11:46 Clinical Trial Participant: No - Prophylaxis VTE Prophylaxis Ordered?: Yes Types of VTE Prophylaxis: TEDS Knee High
--- NOTE | 2018-10-07 17:46 | History & Physical Report ---
*Admission Date: 10/07/18 *Chief complaint: Confusion and fatigue *History of present illness: 68-year-old white male with long history of depression, disordered thinking, mood disorder and dementia, who has been noncompliant with medical therapy over the past several months intermittently, who also has a history of severe autoimmune hemolytic anemia who has been off his prednisone for several months. He drove himself to the emergency department today because he was feeling confused, and the emergency department was disoriented and unable to give much of a history. Laboratory workup showed significant anemia with hemoglobin of [address] of head was unremarkable, other lab testing did not explain his significant mental status changes However he is admitted to hospital for ongoing observation and blood transfusion given his significant/life-threatening anemia. [facility] History I have reviewed the patient's past medical history: Yes Medical History: Reports:: Atrial Fibrillation (One episode several months ago, spontaneously resolved), Congestive Heart Failure, Hypertension Denies:: Cancer, Diabetes Mellitus Type 1, Diabetes Mellitus Type 2, MRSA Other Medical History: Reports: Anemia (Hemolytic anemia, prednisone responsive, GI workup negative) Laterality Cases: Bilateral: Other Other Surgeries: Yes: Other (?SX BOTH LEGS, AND L ARM) Amputation: No Fractures: No - *Social History Educational Level: Completed High School Smoking Status: Former smoker Tobacco Type: cigarettes Alcohol Intake: never Alcohol Intake Frequency:: holidays/special occasions only Substance Use Type: marijuana Occupational Status: retired Housing: house Household Members: none - Psychiatric History Expresses thoughts of harming self/others: None Suicide Plan Description: No Plan *Family Hx:: Unable to obtain Review of Systems - Review of Systems Review of systems:: unable to obtain Patient is unable to give a detailed review of systems because of his tangential thinking and loss of train of thought. He specifically denies chest pain or shortness of air or any pain whatsoever at this point. - *Neurologic Reports abnormal walking, Reports abnormal speech, Reports behavioral changes, Reports weakness, Denies seizure-like activity, Denies fainting Meds Home Medications Medication Instructions Recorded Confirmed Type Citalopram Hydrobromide 20 mg PO DAILY 08/24/18 10/07/18 History [Citalopram HBr] Pantoprazole Sodium [Protonix 40mg 40 mg PO DAILY 08/24/18 10/07/18 History tablet] Venlafaxine HCl [Venlafaxine HCl 37.5 mg PO DAILY 08/24/18 10/07/18 History ER] Aspirin [Aspirin 81mg chewable 81 mg PO DAILY 09/20/18 10/07/18 History tab] Bisoprolol Fumarate [Zebeta 5mg 5 mg PO BID 09/20/18 10/07/18 History tablet] Clopidogrel Bisulfate [Plavix 75mg 75 mg PO DAILY 09/20/18 10/07/18 History Tab] Digoxin [Digoxin 0.25mg Tablet] 250 mcg PO DAILY 09/20/18 10/07/18 History LORazepam [Ativan 1mg tablet] 0.5 mg PO BID 09/20/18 10/07/18 History Lisinopril/Hydrochlorothiazide 1 tab PO DAILY 09/20/18 10/07/18 History [Lisinopril-Hctz 20-12.5 mg Tab] Rivaroxaban [Xarelto 10mg tablet] 20 mg PO QPMWM 09/20/18 10/07/18 History Furosemide [Lasix 20mg tab] 20 mg PO BIDL 10/07/18 10/07/18 History Allergies Allergy/AdvReac Type Severity Reaction Status Date / Time codeine [CODEINE] Allergy Unknown I-RASH Verified 08/23/18 07:18 Exam Vital signs and Labs for Last 24 Hours: Temp Pulse Resp BP Pulse Ox 98.4 F 53 L 16 130/59 L 96 10/07/18 16:25 10/07/18 16:25 10/07/18 16:25 10/07/18 16:25 10/07/18 16:25 Laboratory Results - last 24 hr 10/07/18 11:46: WBC 3.1 L, RBC 1.71 L*, Hgb 5.9 L*, Hct 18.0 L*, MCV 104.3 H, MCH 34.3 H, MCHC 32.9, RDW 21.3 H, Plt Count 311, MPV 8.9, Neut % (Auto) 55.5, Lymph % (Auto) 26.0, [place] % (Auto) 13.7 H, Eos % (Auto) 3.0, Baso % (Auto) 1.7, Neut # (Auto) 1.7 L, Lymph # (Auto) 0.8, [place] # (Auto) 0.4, Eos # (Auto) 0.1, Baso # (Auto) 0.1 10/07/18 11:46: Sodium 141, Potassium 3.9, Chloride 101, Carbon Dioxide 32, Anion Gap 11.9, BUN 19 H, Creatinine 1.31 H, Estimated Creat Clear 56, Estimated GFR 55 L, Est GFR ( Amer) 66, Glucose 141 H, Calcium 8.8, Total Bilirubin 0.7, AST 45 H, ALT 95 H, Alkaline Phosphatase 157 H, Troponin I < 0.02, Total Protein 6.9, Albumin 3.9, Globulin 3.0, Albumin/Globulin Ratio 1.3 10/07/18 11:46: B-Natriuretic Peptide 151 H 10/07/18 12:48: Hgb 4.9 L*, Hct 15.5 L* 10/07/18 13:10: Stool Occult Blood Negative 10/07/18 13:55: Ammonia 16 L 10/07/18 13:55: Blood Type O Positive, Antibody Screen Negative, Crossmatch (AHG) See Detail I & O for Last 24 hours: Intake & Output 10/05/18 10/06/18 10/07/18 10/08/18 11:59 11:59 11:59 11:59 Intake Total 1360 / 1360 Balance 1360 / 1360 Weight 160 lb 152 lb 1 oz Narrative: Patient is in no distress. He appears well-nourished and hydrated. No evidence of trauma around his head or bruising on his bony prominences. Lungs have good air movement. Heart rate irregular but rate controlled. Abdomen soft and nontender. No edema or clubbing. Patient is able to follow commands and move his extremities. Cranial nerves are intact. Psych exam revealed that he is disoriented to time, is oriented to hospital status and person. He is able to discuss his noncompliance with medication but is very vague and seems to confabulate/tangential thinking in regards to executive function and memory. Assessment and Plan (1) Altered mental status Current visit: Yes Status: Acute Category: Medical Code(s): R41.82 - Altered mental status, unspecified Possibly increased confusion because of anemia, we will correct this with 2 units of packed cells and follow blood counts tomorrow. No evidence of active bleeding. Possibly as a result of acute withdrawal from his psychiatric medications, including his selective norepinephrine reuptake inhibitor. We will restart medication and see how he does over the next couple of days. Check TSH and B12 levels. Ammonia levels and other metabolic testing so far unremarkable. (2) Anemia Current visit: Yes Status: Chronic Qualifiers: Anemia type: acquired or hereditary hemolytic anemia Hemolytic anemia type: hereditary hemolytic anemia, other Qualified Code(s): D58.8 - Other specified hereditary hemolytic anemias Category: Medical Code(s): D64.9 - Anemia, unspecified Probably worsened from noncompliance with prednisone. We will try to find records from his massotherapist. Transfused tonight. (3) Acute on chronic systolic heart failure, NYHA class 2 Current visit: No Status: Acute Category: Medical Code(s): I50.23 - Acute on chronic systolic (congestive) heart failure (4) CHF (congestive heart failure) Current visit: No Status: Acute Category: Medical Code(s): I50.9 - Heart failure, unspecified Currently no evidence of volume overload. Watch volume status carefully tomorrow
[2018-10-07 22:31] LABS: Microscopic, Urine URINE MICROSCOPIC (MICROSCOPIC)
[2018-10-07 22:33] LABS: Appearance,Urine CLEAR (Clear); Bilirubin,Urine Negative (Negative); Blood, Urine Negative (Negative); Color,Urine YELLOW (Yellow); Glucose,Urine (UA) Negative (Negative); Ketones,Urine Negative (Negative); Leukocyte Esterase,Urine Negative (Negative); PH,Urine 5.5 (5.0-8.5); Protein,Urine Negative (Negative); Urobilinogen,Urine 0.2 EU/dl (0.2)
[2018-10-07 22:41] LABS: Bacteria,Urine Trace /lpf; Squamous Epithelial Cell,Urine Occasional #/hpf (0-5); WBC,Urine Occasional #/hpf (0-3)
[2018-10-07 22:44] LABS: Hematocrit 21.9 % (42.0-52.0); Hemoglobin 7.4 g/dL (14.1-18.0)
[2018-10-08 06:46] LABS: Basophils % 1.3 % (0.1-2.0); Eosinophils # 0.1 K/mm3 (0.0-0.4); Eosinophils % 2.7 % (0.1-12.0); Lymphocytes # 0.8 K/mm3 (0.7-4.5); Lymphocytes % 24.8 % (10-50); Mean Corpuscular HGB Conc 34.1 g/dL (31.8-35.4); Mean Corpuscular Hemoglobin 33.1 pg (27.0-31.2); Mean Corpuscular Volume 96.9 fl (80-94); Mean Platelet Volume 8.8 fl (7.4-10.4); Monocytes # 0.4 K/mm3 (0.1-1.0); Monocytes % 11.8 % (1.7-9.3); Neutrophils # 1.9 K/mm3 (1.8-7.8); Neutrophils % 59.4 % (37.0-80.0); Platelet Count 243 K/mm3 (142-424); Red Blood Count 2.18 M/mm3 (4.60-6.20); Red Cell Distribution Width 21.2 % (11.5-17.5); White Blood Count 3.1 K/mm3 (4.8-10.8)
[2018-10-08 06:59] LABS: Albumin Level 3.3 gm/dL (3.4-5.0); Albumin/Globulin Ratio 1.2 (1.1-1.8); Anion Gap 8.9 mEq/L (5-15); Bilirubin,Total 0.7 mg/dL (0.2-1.0); Calcium 8.5 mg/dL (8.5-10.1); Globulin 2.7 gm/dl (1.3-3.2); Potassium 3.9 mmoL/L (3.5-5.1)
[2018-10-08 07:06] LABS: Hematocrit 21.1 % (42.0-52.0); Hemoglobin 7.2 g/dL (14.1-18.0)
--- NOTE | 2018-10-08 08:12 | Progress Note ---
Internal Medicine - PN: Subj *Date: 10/08/18 *Time: 08:09 Interval history: Patient tolerated blood transfusions well, hemoglobin yesterday after blood transfusion 7.4 g, this morning is 7.2 g. He reports that he feels better, continues to report some shortness of air. Telemetry monitoring has recorded occasional PACs, sinus bradycardia and occasional PVCs. Patient reports that he understands his been noncompliant with his medications, has a very vague and ill-defined plan to improve his medication compliance, this involves home health agencies and having meals delivered to his home. He does not wish to consider assisted living or long-term care placement. Exam Vital signs and Labs for Last 24 Hours: Temp Pulse Resp BP Pulse Ox 98.6 F 57 L 16 155/72 H 96 10/08/18 07:30 10/08/18 07:30 10/08/18 07:30 10/08/18 07:30 10/08/18 07:30 Laboratory Results - last 24 hr 10/07/18 11:46: WBC 3.1 L, RBC 1.71 L*, Hgb 5.9 L*, Hct 18.0 L*, MCV 104.3 H, MCH 34.3 H, MCHC 32.9, RDW 21.3 H, Plt Count 311, MPV 8.9, Neut % (Auto) 55.5, Lymph % (Auto) 26.0, [place] % (Auto) 13.7 H, Eos % (Auto) 3.0, Baso % (Auto) 1.7, Neut # (Auto) 1.7 L, Lymph # (Auto) 0.8, [place] # (Auto) 0.4, Eos # (Auto) 0.1, Baso # (Auto) 0.1 10/07/18 11:46: Sodium 141, Potassium 3.9, Chloride 101, Carbon Dioxide 32, Anion Gap 11.9, BUN 19 H, Creatinine 1.31 H, Estimated Creat Clear 56, Estimated GFR 55 L, Est GFR ( Amer) 66, Glucose 141 H, Calcium 8.8, Total Bilirubin 0.7, AST 45 H, ALT 95 H, Alkaline Phosphatase 157 H, Troponin I < 0.02, Total Protein 6.9, Albumin 3.9, Globulin 3.0, Albumin/Globulin Ratio 1.3 10/07/18 11:46: B-Natriuretic Peptide 151 H 10/07/18 12:48: Hgb 4.9 L*, Hct 15.5 L* 10/07/18 13:10: Stool Occult Blood Negative 10/07/18 13:55: Ammonia 16 L 10/07/18 13:55: Blood Type O Positive, Antibody Screen Negative, Crossmatch (AHG) See Detail 10/07/18 18:00: TSH 2.57 D 10/07/18 22:13: Hgb 7.4 L* D, Hct 21.9 L* 10/07/18 22:24: Urine Color Yellow, Urine Appearance Clear, Urine pH 5.5, Ur Specific [place] 1.020, Urine Protein Negative, Urine Glucose (UA) Negative, Urine Ketones Negative, Urine Blood Negative, Urine Nitrate Negative, Urine Bilirubin Negative, Urine Urobilinogen 0.2, Ur Leukocyte Esterase Negative, Urine RBC None, Urine WBC Occasional, Ur Squamous Epith Cells Occasional, Urine Bacteria Trace 10/08/18 06:16: WBC 3.1 L, RBC 2.18 L D, Hgb 7.2 L*, Hct 21.1 L*, MCV 96.9 H, MCH 33.1 H, MCHC 34.1, RDW 21.2 H, Plt Count 243, MPV 8.8, Neut % (Auto) 59.4, Lymph % (Auto) 24.8, [place] % (Auto) 11.8 H, Eos % (Auto) 2.7, Baso % (Auto) 1.3, Neut # (Auto) 1.9, Lymph # (Auto) 0.8, [place] # (Auto) 0.4, Eos # (Auto) 0.1, Baso # (Auto) 0.0 10/08/18 06:16: Sodium 140, Potassium 3.9, Chloride 102, Carbon Dioxide 33 H, Anion Gap 8.9, BUN 17, Creatinine 1.06, Estimated Creat Clear 66, Estimated GFR 70, Est GFR ( Amer) 84 D, Glucose 103 D, Calcium 8.5, Total Bilirubin 0.7, AST 40 H, ALT 80 H, Alkaline Phosphatase 138 H, Total Protein 6.0 L, Albumin 3.3 L D, Globulin 2.7, Albumin/Globulin Ratio 1.2 I & O for Last 24 hours: Intake & Output 10/05/18 10/06/18 10/07/18 10/08/18 11:59 11:59 11:59 11:59 Intake Total 2238 / 2238 Output Total 760 / 760 Balance 1478 / 1478 Weight 160 lb 152 lb 1 oz Narrative: Patient is able to sit up on the side of the bed. Follow commands. He has cognitive slowing, more than his baseline, has significant memory loss and remains disoriented to time and date. He has limited understanding of resources available to him. He has very poor memory of relatives names, and cannot remember his daughter's last name. He does not know anything about his medication schedule. Heart rate is regular with occasional ectopic beats. Abdomen soft, lungs are clear. Abdomen soft and nontender. No edema or clubbing. Assessment and Plan (1) Altered mental status Current visit: Yes Status: Acute Category: Medical Code(s): R41.82 - Altered mental status, unspecified (2) Anemia Current visit: Yes Status: Chronic Qualifiers: Anemia type: acquired or hereditary hemolytic anemia Hemolytic anemia type: hereditary hemolytic anemia, other Qualified Code(s): D58.8 - Other specified hereditary hemolytic anemias Category: Medical Code(s): D64.9 - Anemia, unspecified (3) Acute on chronic systolic heart failure, NYHA class 2 Current visit: No Status: Acute Category: Medical Code(s): I50.23 - Acute on chronic systolic (congestive) heart failure (4) CHF (congestive heart failure) Current visit: No Status: Acute Category: Medical Code(s): I50.9 - Heart failure, unspecified - Assessment and plan all Dx Assessment and Plan for all problems:: Altered mental status is slightly improved with improvement of his hemoglobin however his baseline cognitive impairment/dementia is significant. I do not believe he is safe to return home and nursing staff will contact his daughter to see if she possibly provide a residence for him on discharge in the next couple of days. If this is not the case I think [facility] would need to be contacted. In regards to his anemia this certainly has improved. I will review workup from previous multicultural services librarian see if steroids would be indicated in this situation. 2 more units of packed cells today. No evidence of recurrence of CHF issues. Watch fluid status carefully.
[2018-10-08 18:28] LABS: Hematocrit 25.5 % (42.0-52.0); Hemoglobin 8.7 g/dL (14.1-18.0)
[2018-10-09 07:19] LABS: Basophils # 0.1 K/mm3 (0-0.2); Basophils % 1.5 % (0.1-2.0); Eosinophils # 0.1 K/mm3 (0.0-0.4); Eosinophils % 3.6 % (0.1-12.0); Hemoglobin 8.6 g/dL (14.1-18.0); Lymphocytes # 0.8 K/mm3 (0.7-4.5); Lymphocytes % 24.7 % (10-50); Mean Corpuscular HGB Conc 35.1 g/dL (31.8-35.4); Mean Corpuscular Hemoglobin 33.1 pg (27.0-31.2); Mean Corpuscular Volume 94.3 fl (80-94); Monocytes # 0.4 K/mm3 (0.1-1.0); Neutrophils # 1.8 K/mm3 (1.8-7.8); Neutrophils % 58.2 % (37.0-80.0); Platelet Count 207 K/mm3 (142-424); Red Blood Count 2.59 M/mm3 (4.60-6.20); Red Cell Distribution Width 19.8 % (11.5-17.5); White Blood Count 3.1 K/mm3 (4.8-10.8)
[2018-10-09 07:20] LABS: Hematocrit 24.4 % (42.0-52.0)
[2018-10-09 07:31] LABS: Albumin Level 3.2 gm/dL (3.4-5.0); Albumin/Globulin Ratio 1.2 (1.1-1.8); Anion Gap 8.7 mEq/L (5-15); Bilirubin,Total 0.7 mg/dL (0.2-1.0); Calcium 8.2 mg/dL (8.5-10.1); Globulin 2.6 gm/dl (1.3-3.2); Potassium 3.7 mmoL/L (3.5-5.1); Total Protein,Serum 5.8 gm/dL (6.4-8.2)
--- NOTE | 2018-10-09 07:33 | Progress Note ---
Internal Medicine - PN: Subj *Date: 10/09/18 *Time: 07:32 Interval history: Patient is comfortable, no complaints, no pains. Exam Vital signs and Labs for Last 24 Hours: Temp Pulse Resp BP Pulse Ox 99.0 F 56 L 16 124/59 L 97 10/09/18 07:26 10/09/18 07:26 10/09/18 07:26 10/09/18 07:26 10/09/18 07:26 Laboratory Results - last 24 hr 10/07/18 13:55: Blood Type O Positive, Antibody Screen Negative, Crossmatch (AHG) See Detail 10/08/18 18:15: Hgb 8.7 L D, Hct 25.5 L 10/09/18 06:47: WBC 3.1 L, RBC 2.59 L, Hgb 8.6 L, Hct 24.4 L, MCV 94.3 H, MCH 33.1 H, MCHC 35.1, RDW 19.8 H, Plt Count 207, MPV 9.0, Neut % (Auto) 58.2, Lymph % (Auto) 24.7, Person % (Auto) 12.0 H, Eos % (Auto) 3.6, Baso % (Auto) 1.5, Neut # (Auto) 1.8, Lymph # (Auto) 0.8, Person # (Auto) 0.4, Eos # (Auto) 0.1, Baso # (Auto) 0.1 I & O for Last 24 hours: Intake & Output 10/06/18 10/07/18 10/08/18 10/09/18 11:59 11:59 11:59 11:59 Intake Total 2238 / 2238 1485 / 1485 Output Total 760 / 760 300 / 300 Balance 1478 / 1478 1185 / 1185 Weight 160 lb 152 lb 1 oz 157 lb Narrative: This morning heart rate bradycardic with occasional ectopic beats. Lungs clear, abdomen soft, neurologic exam nonfocal, psych exam continues to show memory lapses and poor cognitive ability. Assessment and Plan (1) Altered mental status Current visit: Yes Status: Acute Category: Medical Code(s): R41.82 - Altered mental status, unspecified (2) Anemia Current visit: Yes Status: Chronic Qualifiers: Anemia type: acquired or hereditary hemolytic anemia Hemolytic anemia type: hereditary hemolytic anemia, other Qualified Code(s): D58.8 - Other specified hereditary hemolytic anemias Category: Medical Code(s): D64.9 - Anemia, unspecified (3) Acute on chronic systolic heart failure, NYHA class 2 Current visit: No Status: Acute Category: Medical Code(s): I50.23 - Acute on chronic systolic (congestive) heart failure (4) CHF (congestive heart failure) Current visit: No Status: Acute Category: Medical Code(s): I50.9 - Heart failure, unspecified (5) Bradycardia Current visit: Yes Status: Acute Category: Medical Code(s): R00.1 - Bradycardia, unspecified Plan for problem list above is unchanged, patient's blood counts have improved nicely. Care management will need to be involved in possible placement issues tomorrow. Patient had an episode yesterday of bradycardia with Mobitz block with intermittent dropped beats. Beta-blockers and digoxin have been held. Daily EKGs and cardiology evaluation for pacemaker.
[2018-10-10 05:58] LABS: Eosinophils # 0.1 K/mm3 (0.0-0.4); Hematocrit 25.4 % (42.0-52.0); Hemoglobin 8.5 g/dL (14.1-18.0); Lymphocytes # 0.8 K/mm3 (0.7-4.5); Lymphocytes % 25.8 % (10-50); Mean Corpuscular HGB Conc 33.5 g/dL (31.8-35.4); Mean Corpuscular Hemoglobin 31.8 pg (27.0-31.2); Mean Corpuscular Volume 94.9 fl (80-94); Mean Platelet Volume 10.1 fl (7.4-10.4); Monocytes # 0.4 K/mm3 (0.1-1.0); Monocytes % 11.7 % (1.7-9.3); Neutrophils # 1.7 K/mm3 (1.8-7.8); Neutrophils % 57.6 % (37.0-80.0); Platelet Count 195 K/mm3 (142-424); Red Blood Count 2.68 M/mm3 (4.60-6.20); Red Cell Distribution Width 19.7 % (11.5-17.5)
[2018-10-10 06:10] LABS: Albumin Level 3.2 gm/dL (3.4-5.0); Albumin/Globulin Ratio 1.3 (1.1-1.8); Bilirubin,Total 0.6 mg/dL (0.2-1.0); Calcium 8.2 mg/dL (8.5-10.1); Globulin 2.5 gm/dl (1.3-3.2); Total Protein,Serum 5.7 gm/dL (6.4-8.2)
--- NOTE | 2018-10-10 08:17 | Consult Report ---
History of Present Illness Consult date: 10/10/18 Requesting physician: Aron Cabrera (\\) Consult reason: shortness of breath Chief complaint: Confusion, SOA Additional Medical History:: 1. DM, Type 2 2. Autoimmune Hemolytic Anemia A. History of previous Hematology workups with recommendations for prednisone therapy. Pt stopped prednisone because "it was too strong." B. History of negative GI work up for possible blood loss 3. HTN 4. CHF, 09/2018 5. CAD A. 08/2018, 1. The left main artery normal 2. The left anterior descending artery has an ostial proximal 70-80% stenosis 3. The circumflex artery is nondominant yet still a large vessel with a mid vessel 40% stenosis 4. The right coronary artery is a dominant vessel and has severe 80% distal stenosis 5. The DAIGLE ventriculogram reveals severe left ventricular dilatation with severely decreased ejection fraction estimated at 25% 6. The left ventricular end-diastolic pressure 25 mmHg IMPRESSION: 1. Severe 2 vessel coronary artery disease as described above 2. Successful stenting of the ostial proximal LAD severe disease reduced to 0% with 1 drug-eluting stent 3. Successful stenting of the distal dominant right coronary artery severe disease reduced to 0% with 1 drug-eluting stent 4. Severe left ventricular dysfunction with severe left ventricular dilatation and elevated LVEDP B. Echo, 08/2018, 1. Moderately enlarged left atrium, mildly dilated left ventricle, reduced left ventricular systolic function, visually estimated ejection fraction approximately 30%, left ventricle is globally hypokinetic. 2. Mild mitral and tricuspid regurgitation 3. No significant pericardial effusion noted. 6. medication non-compliance 7. Conduction system disease A. First degree AV block, Second degree AV block type I and intermittent LBBB. History of present illness: 68-year-old white male with long history of depression, disordered thinking, mood disorder and dementia, who has been noncompliant with medical therapy over the past several months intermittently, who also has a history of severe autoimmune hemolytic anemia who has been off his prednisone for several months. He drove himself to the emergency department today because he was feeling confused, and the emergency department was disoriented and unable to give much of a history. Laboratory workup showed significant anemia with hemoglobin of [address] of head was unremarkable, other lab testing did not explain his significant mental status changes However he is admitted to hospital for ongoing observation and blood transfusion given his significant/life-threatening anemia The above per Dr. Cabrera. After institution of meds for his cardiomyopathy, he developed marked bradycardia and second degree AV block type I which prompted cardiology consultation for evaluation and recommendations. EKG shows sinus steven with VA 262 ms with LAFB, septal infarct pattern and STT abnormalities. Telemetry earlier in his stay shows couplet followed by wide complex rhythm (LBBB) at about 75 bpm for 5 beats before resumption of narrow rhythm at 75 bpm. [facility] History Medical History: Reports:: Atrial Fibrillation (One episode several months ago, spontaneously resolved), Congestive Heart Failure, Hypertension Denies:: Cancer, Diabetes Mellitus Type 1, Diabetes Mellitus Type 2, MRSA Other Medical History: Reports: Anemia (Hemolytic anemia, prednisone responsive, GI workup negative) Laterality Cases: Bilateral: Other Other Surgeries: Yes: Other (?SX BOTH LEGS, AND L ARM) Amputation: No Fractures: No - *Social History Educational Level: Completed High School Smoking Status: Former smoker Tobacco Type: cigarettes Alcohol Intake: never Alcohol Intake Frequency:: holidays/special occasions only Substance Use Type: marijuana Occupational Status: retired Housing: house Household Members: none - Psychiatric History Expresses thoughts of harming self/others: None Suicide Plan Description: No Plan *Family Hx:: Unable to obtain Meds Home Medications Medication Instructions Recorded Confirmed Type Citalopram Hydrobromide 20 mg PO DAILY 08/24/18 10/07/18 History [Citalopram HBr] Pantoprazole Sodium [Protonix 40mg 40 mg PO DAILY 08/24/18 10/07/18 History tablet] Venlafaxine HCl [Venlafaxine HCl 37.5 mg PO DAILY 08/24/18 10/07/18 History ER] Aspirin [Aspirin 81mg chewable 81 mg PO DAILY 09/20/18 10/07/18 History tab] Bisoprolol Fumarate [Zebeta 5mg 5 mg PO BID 09/20/18 10/07/18 History tablet] Clopidogrel Bisulfate [Plavix 75mg 75 mg PO DAILY 09/20/18 10/07/18 History Tab] Digoxin [Digoxin 0.25mg Tablet] 250 mcg PO DAILY 09/20/18 10/07/18 History LORazepam [Ativan 1mg tablet] 0.5 mg PO BID 09/20/18 10/07/18 History Lisinopril/Hydrochlorothiazide 1 tab PO DAILY 09/20/18 10/07/18 History [Lisinopril-Hctz 20-12.5 mg Tab] Rivaroxaban [Xarelto 10mg tablet] 20 mg PO QPMWM 09/20/18 10/07/18 History Furosemide [Lasix 20mg tab] 20 mg PO BIDL 10/07/18 10/07/18 History Allergies Allergy/AdvReac Type Severity Reaction Status Date / Time codeine [CODEINE] Allergy Unknown I-RASH Verified 08/23/18 07:18 Review of Systems - *Cardiovascular Reports shortness of breath with activity, Denies chest pain - *Respiratory Reports shortness of breath with activity - *Gastrointestinal Denies abdominal pain, Denies loose stools, Denies black, tarry stools - *Genitourinary Denies blood in urine - *Musculoskeletal Denies joint pain, Denies back pain - *Neurologic Reports abnormal walking, Reports abnormal speech, Reports behavioral changes, Reports weakness, Denies seizure-like activity, Denies fainting Exam Vital signs and Labs for Last 24 Hours: Temp Pulse Resp BP Pulse Ox 97.9 F 59 L 18 152/65 H 96 10/10/18 07:53 10/10/18 07:53 10/10/18 07:53 10/10/18 07:53 10/10/18 07:53 Laboratory Results - last 24 hr 10/10/18 05:49: WBC 3.0 L, RBC 2.68 L, Hgb 8.5 L, Hct 25.4 L, MCV 94.9 H, MCH 31.8 H, MCHC 33.5, RDW 19.7 H, Plt Count 195, MPV 10.1, Neut % (Auto) 57.6, Lymph % (Auto) 25.8, [place] % (Auto) 11.7 H, Eos % (Auto) 4.0, Baso % (Auto) 1.0, Neut # (Auto) 1.7 L, Lymph # (Auto) 0.8, [place] # (Auto) 0.4, Eos # (Auto) 0.1, Baso # (Auto) 0.0 10/10/18 05:49: Sodium 141, Potassium 4.0, Chloride 103, Carbon Dioxide 33 H, Anion Gap 9.0, BUN 14, Creatinine 0.97, Estimated Creat Clear 72, Estimated GFR 77, Est GFR ( Amer) 93, Glucose 103, Calcium 8.2 L, Total Bilirubin 0.6, AST 29 D, ALT 72, Alkaline Phosphatase 130 H, Total Protein 5.7 L, Albumin 3.2 L, Globulin 2.5, Albumin/Globulin Ratio 1.3 I & O for Last 24 hours: Intake & Output 10/07/18 10/08/18 10/09/18 10/10/18 11:59 11:59 11:59 11:59 Intake Total 2238 / 2238 1485 / 1485 1200 / 1200 Output Total 760 / 760 300 / 300 150 / 150 Balance 1478 / 1478 1185 / 1185 1050 / 1050 Weight 160 lb 152 lb 1 oz 157 lb 157 lb 3 oz - *Routine Neck Exam Present: supple. Absent: JVD, carotid bruit - *Routine Respiratory Exam Present: CTA bilaterally. Absent: accessory muscle use, rales, rhonchi, wheezes - *Routine Cardiovascular Exam Present: RRR, bradycardia. Absent: murmur, gallop, rubs - *Routine Abdominal Exam Present: soft. Absent: tenderness, distended, guarding - *Routine Extremities Exam Absent: edema, calf tenderness - *Routine Neurological Exam Present: alert, oriented X3, moving all extremities Assessment and Plan (1) Altered mental status Current visit: Yes Status: Acute Category: Medical Code(s): R41.82 - Altered mental status, unspecified (2) Anemia Current visit: Yes Status: Chronic Qualifiers: Anemia type: acquired or hereditary hemolytic anemia Hemolytic anemia type: hereditary hemolytic anemia, other Qualified Code(s): D58.8 - Other specified hereditary hemolytic anemias Category: Medical Code(s): D64.9 - Anemia, unspecified (3) Acute on chronic systolic heart failure, NYHA class 2 Current visit: No Status: Acute Category: Medical Code(s): I50.23 - Acute on chronic systolic (congestive) heart failure (4) CHF (congestive heart failure) Current visit: No Status: Acute Category: Medical Code(s): I50.9 - Heart failure, unspecified (5) Bradycardia Current visit: Yes Status: Acute Category: Medical Code(s): R00.1 - Bradycardia, unspecified (6) Cardiomyopathy Current visit: No Status: Acute Category: Medical Code(s): I42.9 - Cardiomyopathy, unspecified (7) Chronic hemolytic anemia Current visit: No Status: Chronic Category: Medical Code(s): D58.9 - Hereditary hemolytic anemia, unspecified - Assessment and plan all Dx Assessment and Plan for all problems:: 1. Pt with significant bradycardia and development of second degree AV block type I on medication for treatment of dilated cardiomyopathy. Pt has history of medication non-compliance and developed profound anemia as a result of not taking his prednisone therapy for his autoimmune hemolytic anemia. He understands that he needs to take the medications for recent coronary stenting and for his dilated cardiomyopathy in order to improve. I have explained that the medications have exacerbated his underlying cardiac conduction system disease and he is now in need of a pacemaker/defibrillator implantation which will allow us to continue medical therapy for his heart. With his marked bradycardia on low dose beta arnold, he most definitely would pace more than 40% of the time. It is recommended that he get a BiVentricular [employer]-D device to maintain cardiac synchronization and the best possible chance of improving his cardiac function. Questions regarding the procedure and recovery as well as the risks and benefits explained to the patient and his sister and they consent to proceed. 2. Preliminary echo today shows LVEF < 35%.
--- NOTE | 2018-10-10 08:28 | Progress Note ---
Internal Medicine - PN: Subj *Date: 10/10/18 *Time: 08:27 Interval history: Patient did well overnight. No further episodes of significant bradycardia. EKG noted this morning. Patient feels well. Long discussion with his sister about his potentially moving to her home given his significant medication noncompliance and mental status issues. Exam Vital signs and Labs for Last 24 Hours: Temp Pulse Resp BP Pulse Ox 97.9 F 59 L 18 152/65 H 96 10/10/18 07:53 10/10/18 07:53 10/10/18 07:53 10/10/18 07:53 10/10/18 07:53 Laboratory Results - last 24 hr 10/10/18 05:49: WBC 3.0 L, RBC 2.68 L, Hgb 8.5 L, Hct 25.4 L, MCV 94.9 H, MCH 31.8 H, MCHC 33.5, RDW 19.7 H, Plt Count 195, MPV 10.1, Neut % (Auto) 57.6, Lymph % (Auto) 25.8, [place] % (Auto) 11.7 H, Eos % (Auto) 4.0, Baso % (Auto) 1.0, Neut # (Auto) 1.7 L, Lymph # (Auto) 0.8, [place] # (Auto) 0.4, Eos # (Auto) 0.1, Baso # (Auto) 0.0 10/10/18 05:49: Sodium 141, Potassium 4.0, Chloride 103, Carbon Dioxide 33 H, Anion Gap 9.0, BUN 14, Creatinine 0.97, Estimated Creat Clear 72, Estimated GFR 77, Est GFR ( Amer) 93, Glucose 103, Calcium 8.2 L, Total Bilirubin 0.6, AST 29 D, ALT 72, Alkaline Phosphatase 130 H, Total Protein 5.7 L, Albumin 3.2 L, Globulin 2.5, Albumin/Globulin Ratio 1.3 I & O for Last 24 hours: Intake & Output 10/07/18 10/08/18 10/09/18 10/10/18 11:59 11:59 11:59 11:59 Intake Total 2238 / 2238 1485 / 1485 1200 / 1200 Output Total 760 / 760 300 / 300 150 / 150 Balance 1478 / 1478 1185 / 1185 1050 / 1050 Weight 160 lb 152 lb 1 oz 157 lb 157 lb 3 oz Narrative: Patient is pleasant, talkative. Lungs are clear, heart rate regular with occasional ectopic beat, rate in the low 60s. No abdominal tenderness, no rash, no neurologic deficit at this point. Oropharynx clear. Otherwise no JVD and ENT exam unchanged. Assessment and Plan (1) Altered mental status Current visit: Yes Status: Acute Category: Medical Code(s): R41.82 - Altered mental status, unspecified (2) Anemia Current visit: Yes Status: Chronic Qualifiers: Anemia type: acquired or hereditary hemolytic anemia Hemolytic anemia type: hereditary hemolytic anemia, other Qualified Code(s): D58.8 - Other specified hereditary hemolytic anemias Category: Medical Code(s): D64.9 - Anemia, unspecified (3) Acute on chronic systolic heart failure, NYHA class 2 Current visit: No Status: Acute Category: Medical Code(s): I50.23 - Acute on chronic systolic (congestive) heart failure (4) CHF (congestive heart failure) Current visit: No Status: Acute Category: Medical Code(s): I50.9 - Heart failure, unspecified (5) Bradycardia Current visit: Yes Status: Acute Category: Medical Code(s): R00.1 - Bradycardia, unspecified - Assessment and plan all Dx Assessment and Plan for all problems:: No change in plans as noted from above problem list, except for cardiology consultation. Given his EKG abnormalities and evidence of AV block patient is under consideration for AICD device.
--- NOTE | 2018-10-10 12:54 | Progress Note ---
[facility] Anesthesia Checklist - Patient Identification Patient Identification: Arm Band, Verbal (Name & ) - Structural Data Admitted From: Inpatient Planned Operative Procedure/s: Biventriculer pacemaker Consent for Planned Operative Procedure(s) Verified: Yes Verified Documents: Surgical Consent, History and Physical - NPO Status Verified Time NPO: 00:00 - Additional verifications Anesthesia Reactions: No - Airway Assessment C-Spine Mobility Assessed: Yes TMJ Mobility Assessed: Yes Dentition: Poor Dentition (Missing teeth) - Neurological Assessment Level of Consciousness: Awake Hx Seizures: No Numbness or tingling in extremities: No - Anesthesia Plan Anesthesia Risk discussed: Yes Anesthesia Plan: Verified ASA Class: III Anesthesia Type: [facility] History I have reviewed the patient's past medical history: Yes Medical History: Reports:: Arrhythmia, Atrial Fibrillation (One episode several months ago, spontaneously resolved), Congestive Heart Failure, Dementia, Depression, Gastroesophageal Reflux Disease(GERD), Hypertension Denies:: Cancer, Diabetes Mellitus Type 1, Diabetes Mellitus Type 2, MRSA Other Medical History: Reports: Anemia (Hemolytic anemia, prednisone responsive, GI workup negative) Laterality Cases: Bilateral: Other Other Surgeries: Yes: Other (?SX BOTH LEGS, AND L ARM) Amputation: No Fractures: No - *Social History Educational Level: Completed High School Smoking Status: Former smoker Tobacco Type: cigarettes Alcohol Intake: never Alcohol Intake Frequency:: holidays/special occasions only Substance Use Type: marijuana Occupational Status: retired Housing: house Household Members: none - Psychiatric History Expresses thoughts of harming self/others: None Suicide Plan Description: No Plan *Family Hx:: Unable to obtain
--- NOTE | 2018-10-10 15:04 | Progress Note ---
[facility] Anesthesia Record Part I Intake, IV Amount: 700 Estimated blood loss (mL): 15 Urine output (mL): 0 Blood Products used (#): none Blood Pressure: 120/61 SaO2: 94 Pulse Rate: 89 Respiratory Rate: 16 Temperature: 98.5 F Patient is:: Awake, Stable Stable to PACU at:: 15:00
--- NOTE | 2018-10-10 15:04 | Progress Note ---
[facility] Anesthesia Record Part II Discharge Time: 15:30 Destination: Medical Surgical Department PACU nurse assessment reviewed?: Yes Patient Condition:: Good Anesthesia Complications:: None
--- NOTE | 2018-10-10 22:01 | Cardiology Report ---
PROCEDURE: 2-D M-mode and color Doppler study INDICATIONS FOR THE TEST: Chest pain+ COPD Heart Murmur Tobacco Smoking Palpitations Fatigue Syncope Edema Hypertension+Diabetes Mellitus+ Rheumatic Fever SOB ENG Obesity Hyperlipidemia Family History HD Additional History hx of AFIB, CHF PATIENT INFORMATION HEIGHT: 64 WEIGHT: 156 GENDER: Male B/P: 130/59 2-D/M-MODE INTERPRETATION: 2-D MEASUREMENTS OBSERVED VALUES IN CMS Right Ventricular Dimension (RVDd) 2.9 Interventricular Septum (Thickness)(IVsd) 1.1 Left Ventricular Internal Dimensions(LVIDd) 6.3 Left Ventricular Posterior Wall (Thickness)(LVPWd) 1.0 Aortic Root 3.0 Aortic Cusp Separation 2.0 Left Atrial Dimensions (LAD) 5.0 2D 1. Left atrium is mildly enlarged, left ventricle is mildly dilated, there is mild concentric left ventricular hypertrophy, visually estimated ejection fraction approximately 40-45% with no regional wall motion abnormality. 2. The right atrium and right ventricle are mildly enlarged with normal contractility. 3. The aortic valve is minimally thickened and fibrosed. 4. The mitral and tricuspid valve leaflets are minimally thickened. 5. The pulmonic valve is poorly visualized. 6. No significant Pericardial effusion noted. DOPPLER INTERROGATION: Doppler interrogation of the aortic, mitral and tricuspid valvular presence of mild mitral and tricuspid regurgitation, tricuspid regurgitation jet velocity is inadequate for calculation of the right ventricular systolic pressure, grade 1 diastolic dysfunction seen with tissue Doppler evidence of raised left atrial pressure. CONCLUSION: 1. Mildly enlarged left atrium, mildly dilated left ventricle, mild concentric left ventricular hypertrophy, visually estimated ejection fraction 40-45% with no regional wall motion abnormality, grade 1 diastolic dysfunction seen with tissue Doppler evidence of raised left atrial pressure. 2. Mild mitral and tricuspid regurgitation 3. No significant pericardial effusion noted.
--- NOTE | 2018-10-11 08:01 | Discharge Summary ---
General - General Admission date:: 10/07/18 Discharge date: 10/11/18 HPI HPI: 68-year-old white male with long history of depression, disordered thinking, mood disorder and dementia, who has been noncompliant with medical therapy over the past several months intermittently, who also has a history of severe autoimmune hemolytic anemia who has been off his prednisone for several months. He drove himself to the emergency department today because he was feeling confused, and the emergency department was disoriented and unable to give much of a history. Laboratory workup showed significant anemia with hemoglobin of [address] of head was unremarkable, other lab testing did not explain his significant mental status changes However he is admitted to hospital for ongoing observation and blood transfusion given his significant/life-threatening anemia. Hospital Course Hospital Course: Admitted to medicine for altered mental status and sever anemia. Transfused to baseline Hgb of 8-9. Also noted to have significant bradycardia and development of second degree AV block type I on medication for treatment of dilated cardiomyopathy. Pt has history of medication non-compliance and developed profound anemia as a result of not taking his prednisone therapy for his autoimmune hemolytic anemia. He was seen by cardiology, they recommended pacemaker/defibrillator placement in setting of bradycardia and heart block. Decision was made to pursue placement of a BiVentricular [employer]IAN-D device to maintain cardiac synchronization and the best possible chance of improving his cardiac function. Significant counseling spent to help him understand that he needs to take the medications for recent coronary stenting and for his dilated cardiomyopathy in order to improve. Echo performed with identification of LVEF < 35%. Patient remained hemodynamically stable. No further events while admitted. No bleeding at insertion site for BiV device. Patient discharged in the care of his sister with plans to live with her for the forseeable future to help with compliance and minimize future events. Follow-up scheduled [facility] Cards and PCP. DC'd home in stable condition. Objective Vital signs: Temp Pulse Resp BP Pulse Ox 98.5 F 70 18 166/71 H 98 10/11/18 04:00 10/11/18 04:00 10/11/18 04:00 10/11/18 04:00 10/11/18 04:00 Narrative: Patient is pleasant, talkative, NAD Lungs are clear heart rate regular with occasional ectopic beat, rate in the low 60s. left chest wall tender from placement of pacer/defibrillator No abdominal tenderness, no rash, no neurologic deficit at this point. Oropharynx clear. Otherwise no JVD and ENT exam unchanged. Results Labs on day of discharge: Labs from last 24 hours 10/07/18 18:00 Vitamin B12 602 DS: Diagnosis - Discharge Diagnosis (1) Altered mental status Status: Acute (2) Anemia Status: Chronic (3) Acute on chronic systolic heart failure, NYHA class 2 Status: Acute (4) CHF (congestive heart failure) Status: Acute (5) Bradycardia Status: Acute (6) Cardiomyopathy Status: Acute (7) Chronic hemolytic anemia Status: Chronic Discharge Plan - Patient Discharge Instructions ACTIVITY: Limited activity (no driving for 8 weeks) DIET: low fat, low cholesterol Patient Instructions: Anemia, Bradycardia, DI for Blood Transfusion, DI for Surgical Site Infection - Follow up Plan Follow up with: James Watkins MD [Staff Physician] - 2 weeks Aron Cabrera MD [Primary Care Provider] - 1 week Disposition: Home, Self-Halfway Medications: Home Medications Medication Instructions Recorded Confirmed Type Citalopram Hydrobromide 20 mg PO DAILY 08/24/18 10/07/18 History [Citalopram HBr] Pantoprazole Sodium [Protonix 40mg 40 mg PO DAILY 08/24/18 10/07/18 History tablet] Venlafaxine HCl [Venlafaxine HCl 37.5 mg PO DAILY 08/24/18 10/07/18 History ER] Bisoprolol Fumarate [Zebeta 5mg 5 mg PO BID 09/20/18 10/07/18 History tablet] Clopidogrel Bisulfate [Plavix 75mg 75 mg PO DAILY 09/20/18 10/07/18 History Tab] Digoxin [Digoxin 0.25mg Tablet] 250 mcg PO DAILY 09/20/18 10/07/18 History LORazepam [Ativan 1mg tablet] 0.5 mg PO BID 09/20/18 10/07/18 History Lisinopril/Hydrochlorothiazide 1 tab PO DAILY 09/20/18 10/07/18 History [Lisinopril-Hctz 20-12.5 mg Tab] Furosemide [Lasix 20mg tablet] 20 mg PO BIDL 10/07/18 10/07/18 History Prescriptions/Medication Reconciliation: Continue Pantoprazole Sodium [Protonix 40mg tablet] 40 mg PO DAILY Venlafaxine HCl [Venlafaxine HCl ER] 37.5 mg PO DAILY Digoxin [Digoxin 0.25mg Tablet] 250 mcg PO DAILY Clopidogrel Bisulfate [Plavix 75mg Tab] 75 mg PO DAILY Bisoprolol Fumarate [Zebeta 5mg tablet] 5 mg PO BID LORazepam [Ativan 1mg tablet] 0.5 mg PO BID Citalopram Hydrobromide [Citalopram HBr] 20 mg PO DAILY Lisinopril/Hydrochlorothiazide [Lisinopril-Hctz 20-12.5 mg Tab] 1 tab PO DAILY Furosemide [Lasix 20mg tablet] 20 mg PO BIDL Discontinued Aspirin [Aspirin 81mg chewable tab] 81 mg PO DAILY Rivaroxaban [Xarelto 10mg tablet] 20 mg PO QPMWM
--- NOTE | 2018-10-11 09:50 | Progress Note ---
Subjective Date: 10/11/18 Time: 09:44 Interval history: 68-year-old white male in bed in no acute distress. He does relate some discomfort at the site of the pacemaker/defibrillator implantation. Telemetry shows biventricular pacing at 70 bpm. Patient is anxious to go home. Exam Vital signs and Labs for Last 24 Hours: Temp Pulse Resp BP Pulse Ox 98.1 F 71 17 166/58 H 97 10/11/18 08:00 10/11/18 08:00 10/11/18 08:00 10/11/18 08:00 10/11/18 08:00 Laboratory Results - last 24 hr 10/07/18 18:00: Vitamin B12 602 I & O for Last 24 hours: Intake & Output 10/08/18 10/09/18 10/10/18 10/11/18 11:59 11:59 11:59 11:59 Intake Total 2238 / 2238 1485 / 1485 1200 / 1200 1540 / 1540 Output Total 760 / 760 300 / 300 150 / 150 Balance 1478 / 1478 1185 / 1185 1050 / 1050 1540 / 1540 Weight 152 lb 1 oz 157 lb 156 lb 6 oz 155 lb 9 oz - *Routine Respiratory Exam Present: CTA bilaterally. Absent: accessory muscle use, rales, rhonchi, wheezes - *Routine Cardiovascular Exam Present: RRR. Absent: murmur, gallop, rubs - *Routine Neurological Exam Present: alert, oriented X3, moving all extremities Progress Note: A&P (1) Altered mental status Status: Acute Current Visit: Yes (2) Anemia Status: Chronic Current Visit: Yes (3) Acute on chronic systolic heart failure, NYHA class 2 Status: Acute Current Visit: No (4) CHF (congestive heart failure) Status: Acute Current Visit: No (5) Bradycardia Status: Acute Current Visit: Yes (6) Cardiomyopathy Status: Acute Current Visit: No (7) Chronic hemolytic anemia Status: Chronic Current Visit: No Assessment and Plan for All Diagnoses:: 1. Patient seems to be back to his baseline mental status. He states he is feeling well and ready to go home. 2. The bradycardia has been resolved with implantation of the biventricular cardiac resynchronization therapy defibrillator. Beta-arnold will be resumed in the form of bisoprolol. Due to the patient's autoimmune hemolytic anemia we will not pursue anticoagulation therapy at this time but rather use his device to follow-up on how much atrial fibrillation he has. Hopefully this will be reduced with the device implantation and beta-arnold therapy. 3. Due to the recent coronary stenting would recommend continuing Plavix therapy. We will hold off on aspirin therapy at this time. 4. Recommend seeing the patient back in 1 week at which time we will interro gate his defibrillator for information regarding recurrent atrial fibrillation.
--- NOTE | 2018-10-12 09:33 | Procedure Note ---
[facility] RETAIL TE[employer] LEADER-D - RETAIL TE[employer] LEADER-D Date of Procedure:: 10/10/18 Procedures:: 1. Pocket formation for biventricular pacemaker generator with cardiac resynchronization/defibrillator therapy. 2. Placement atrial sensing and pacing lead into the right atrial appendage. 3. Placement of right ventricular sensing pacing and shocking lead in the right ventricular apex. 4. Placement of left ventricular sensing pacing lead via the coronary sinus. 5. Permanent cardiac resynchronization therapy with ICD implantati on/biventricular pacemaker. Indication for test:: Systolic Congestive heart failure , ejection <35% Wide QRS >120ms [place] [employer] Class 3 CHF Informed consent:: Obtained prior to procedure. Complications:: None EBL:: Less than 10 ml. Technique:: 1% lidocaine with epinephrine used to anesthetize the left anterior aspect of the chest. Scalpel was used to make the initial cutaneous incision while electrocautery was used to dissect down into the fascia. The fascia was lifted off the pectoralis muscle and digitally manipulated creating a pocket for the pacemaker. The patient was then placed in Trendelenburg position and subclavian vein was accessed via the Seldinger technique on 3 separate occasions. 3 wires were left into the subclavian vein. The right ventricular pacing shocking coil sheath was placed into the subclavian vein and under fluoroscopic guidance the right lingular sensing pacing shocking lead was placed into the right ventricular apex secured into place with the distal screw. After achieving excellent numbers the lead was then secured into placing using 3-0 silk. The lead was secured to the fascia also with heavy silk suture. Prior to the right ventricular lead being secured into place the sheath was peeled away from the subclavian vein. Under fluoroscopic guidance the coronary sinus was cannulated and confirmed with an injection of contrast. An 0.014 wire was then placed distally in the inferior posterior segment of the left ventricle via the coronary sinus and the left ventricular lead was advanced. After achieving excellent thresholds and interrogation numbers the sheath was then peeled away and the lead was then secured into place using silk suture. Following this, the left ventricular coil was secured in place using heavy silk and also secured to the fascia and additional 7 Khmer sheath was then placed over the existing wire and an atrial sensing placing coil was placed in the right atrial appendage after achieving excellent thresholds the sheath was peeled away and the lead was secured to the fascia using heavy silk. After achieving, hemostasis, Ancef was used to flush the pocket and the 3 leads were attached to the RETAIL TEAM LEADER-D generator. The generator was then secured into place by heavy silk suture. Monocryl was used to close the subcutaneous layers while north were used to close the subcutaneous layers while north were used to close the cutaneous layer. A pressure dressing was placed and the patient was transferred to the postop holding area in stable condition. Impression:: 1. Successful pocket formation for biventricular pacemaker generator with cardiac resynchronization/defibrillator therapy. 2. Successful placement of right atrial sensing and pacing lead into the right atrial appendage. 3. Successful placement of a right ventricular sensing, pacing, and shocking lead in the right ventricular apex. 4. Successful placement of left ventricular sensing pacing lead via the coronary sinus. 5. Successful permanent cardiac resynchronization plus AICD generator device. Interrogation:: Generator NEW Model # [id number] Serial # [id number] RA Model # [id number] Serial # [id number] P-wave 1.4mV Impedance 360 Ohms Threshold 1.25V Pulse Width 0.5 ms RVA Model # [id number] Serial # [id number] R-wave 11.4 mV Impedance 510 Ohms Threshold 1.5V Pulse Width 0.5ms LV Model # [id number] Serial # [id number] R-wave Impedance 750 Ohms Threshold 1.75V Pulse Width 0.5ms Pacing Parameters: Mode: DDDR Base/Max Track: 70/110 Max Sensor Therapies: VT-1: 150- Monitor VT-2: 181- ATP X3, 36, 40 J VF- 222- ATP W/C 36, 40 J Plan:: 1.Post-op wound care.
== END 2018-10-11 13:40 | disposition home or self-care (01) ==
LOC: 2ND 11:31 → ER 11:31 → OBSVTOIN 13:48 → 2ND 14:40
PROVIDERS: ADMIT Internal Medicine Adolescent Medicine; ATTEND Internal Medicine Adolescent Medicine

== ENCOUNTER → 2018-10-17 12:22 | Outpatient (CLI) | payer MEDICARE, SELFPAY ==
[2018-10-17 13:56] LABS: Basophils # 0.1 K/mm3 (0-0.2); Basophils % 1.5 % (0.1-2.0); Eosinophils # 0.2 K/mm3 (0.0-0.4); Eosinophils % 4.3 % (0.1-12.0); Hematocrit 30.2 % (42.0-52.0); Hemoglobin 9.8 g/dL (14.1-18.0); Lymphocytes # 0.9 K/mm3 (0.7-4.5); Lymphocytes % 18.8 % (10-50); Mean Corpuscular HGB Conc 32.6 g/dL (31.8-35.4); Mean Corpuscular Volume 98.1 fl (80-94); Mean Platelet Volume 9.1 fl (7.4-10.4); Monocytes # 0.4 K/mm3 (0.1-1.0); Monocytes % 9.4 % (1.7-9.3); Platelet Count 360 K/mm3 (142-424); Red Blood Count 3.08 M/mm3 (4.60-6.20); Red Cell Distribution Width 21.3 % (11.5-17.5); Reticulocyte % (Auto) 4.9 % (0.9-3.2); White Blood Count 4.5 K/mm3 (4.8-10.8)
[2018-10-17 14:37] LABS: Alanine Aminotransferase 70 U/L (12-78); Albumin Level 3.7 gm/dL (3.4-5.0); Albumin/Globulin Ratio 1.3 (1.1-1.8); Alkaline Phosphatase 166 U/L (46-116); Anion Gap 11.5 mEq/L (5-15); Aspartate Amino Transferase 32 U/L (15-37); Bilirubin,Total 0.8 mg/dL (0.2-1.0); Blood Urea Nitrogen 17 mg/dL (7-18); Calcium 8.5 mg/dL (8.5-10.1); Carbon Dioxide 32 mmol/L (21.0-32.0); Chloride 102 mmol/L (98-107); Creatinine,Serum 1.13 mg/dL (0.70-1.30); Estimated Glomerular Filt Rate 65 ml/min (>60); GFR (African American) 78 ML/MIN (>60); Globulin 2.8 gm/dl (1.3-3.2); Glucose 123 mg/dL (74-106); Potassium 3.5 mmoL/L (3.5-5.1); Sodium 142 mmol/L (136-145); Total Protein,Serum 6.5 gm/dL (6.4-8.2)
== END ==
PROVIDERS: Visit Provider Internal Medicine Adolescent Medicine
DX: D59.1 Other autoimmune hemolytic anemias (principal)
CPT/HCPCS: 36415; 80053; 85025; 85044

== ENCOUNTER → 2018-12-28 13:13 | Outpatient (CLI) | payer MEDICARE, SELFPAY ==
[2018-12-28 13:48] LABS: Basophils # 0.1 K/mm3 (0-0.2); Basophils % 1.3 % (0.1-2.0); Eosinophils # 0.2 K/mm3 (0.0-0.4); Eosinophils % 4.4 % (0.1-12.0); Hematocrit 26.6 % (42.0-52.0); Hemoglobin 9.1 g/dL (14.1-18.0); Lymphocytes # 0.6 K/mm3 (0.7-4.5); Lymphocytes % 17.5 % (10-50); Mean Corpuscular HGB Conc 34.2 g/dL (31.8-35.4); Mean Corpuscular Hemoglobin 37.8 pg (27.0-31.2); Mean Corpuscular Volume 110.5 fl (80-94); Mean Platelet Volume 9.2 fl (7.4-10.4); Monocytes # 0.3 K/mm3 (0.1-1.0); Monocytes % 8.3 % (1.7-9.3); Neutrophils # 2.5 K/mm3 (1.8-7.8); Neutrophils % 68.5 % (37.0-80.0); Platelet Count 331 K/mm3 (142-424); Red Cell Distribution Width 21.7 % (11.5-17.5); White Blood Count 3.7 K/mm3 (4.8-10.8)
[2018-12-28 14:26] LABS: Alanine Aminotransferase 80 U/L (12-78); Albumin Level 3.8 gm/dL (3.4-5.0); Albumin/Globulin Ratio 1.5 (1.1-1.8); Alkaline Phosphatase 140 U/L (46-116); Anion Gap 8.9 mEq/L (5-15); Aspartate Amino Transferase 51 U/L (15-37); Bilirubin,Total 0.7 mg/dL (0.2-1.0); Blood Urea Nitrogen 13 mg/dL (7-18); Carbon Dioxide 34 mmol/L (21.0-32.0); Chloride 102 mmol/L (98-107); Creatinine,Serum 1.02 mg/dL (0.70-1.30); Estimated Glomerular Filt Rate 73 ml/min (>60); GFR (African American) 88 ML/MIN (>60); Globulin 2.6 gm/dl (1.3-3.2); Glucose 118 mg/dL (74-106); Potassium 3.9 mmoL/L (3.5-5.1); Sodium 141 mmol/L (136-145); Total Protein,Serum 6.4 gm/dL (6.4-8.2)
== END ==
PROVIDERS: Visit Provider Internal Medicine Adolescent Medicine
DX: D59.1 Other autoimmune hemolytic anemias (principal); E53.8 Deficiency of other specified B group vitamins; D61.818 Other pancytopenia
CPT/HCPCS: 36415; 80053; 85025

== ENCOUNTER 2019-01-13 22:48 | Observation (INO) ==
--- NOTE | 2019-01-13 22:59 | Emergency Department Note ---
ED Disposition Clinical Impression: Chest pain Qualifiers: Chest pain type: unspecified Qualified Code(s): R07.9 - Chest pain, unspecified Disposition: Admitted as Observation Condition on Discharge: Good Referrals: Provider,Referral, [Primary Care Provider] - - Critical Care Critical Care Time: No Attestation: On 01/13/19, the high probability of a clinically significant, sudden or life threatening deterioration of the following system(s) required my full and direct attention, intervention and personal management. The time I documented below is in addition to time spent performing reported procedures but includes the following listed in this critical care notation. Medical Decision Making - Benny Inquiry Pt receiving controlled substance: No Vital Signs: 01/13/19 22:48 01/13/19 23:18 Temperature 97.7 F Temperature Source Axillary Pulse Rate [Apical] 70 74 Respiratory Rate 20 16 Blood Pressure [Right Arm] 213/93 H 143/70 H Blood Pressure Mean [Right Arm] 133 94 Blood Pressure Source [Right Arm] Automatic Cuff Automatic Cuff Blood Pressure Position [Right Arm] Supine Sitting 02 Sat by Pulse Oximetry 100 96 Oxygen Delivery Method Room Air Room Air - Lab Data Lab Results 01/13/19 23:00: WBC 4.9, RBC 2.28 L, Hgb 9.1 L, Hct 25.3 L, MCV 111.1 H, MCH 39.9 H, MCHC 35.9 H, RDW 21.2 H, Plt Count 388, MPV 8.7, Neut % (Auto) 60.7, Lymph % (Auto) 21.4, [place] % (Auto) 9.6 H, Eos % (Auto) 6.6, Baso % (Auto) 1.6, Neut # (Auto) 3.0, Lymph # (Auto) 1.0, [place] # (Auto) 0.5, Eos # (Auto) 0.3, Baso # (Auto) 0.1 01/13/19 23:00: Sodium 138, Potassium 4.1, Chloride 99, Carbon Dioxide 30, Anion Gap 13.1, BUN 15, Creatinine 0.95, Estimated Creat Clear 92, Estimated GFR 79, Est GFR ( Amer) 96, Glucose 119 H, Calcium 8.5, Troponin I < 0.02, Digoxin 1.08 Result diagrams: 01/13/19 23:00 01/13/19 23:00 Orders (Tests/Meds): ED MEDICATIONS Generic Name Dose Route Start Last Admin Trade Name Freq PRN Reason Stop Dose Admin Nitroglycerin 0.4 mg 01/13/19 23:09 01/13/19 23:00 Nitrostat 0.4mg Sl Tablet SL 02/12/19 23:08 1 tab [id number] PRN Administration Chest Pain Discontinued Medications Generic Name Dose Route Start Last Admin Trade Name Freq PRN Reason Stop Dose Admin Nitroglycerin 1 gm 01/13/19 23:10 01/13/19 23:12 Nitroglycerin 1 Inch Oint Udp TD 01/13/19 23:11 1 gm ONCE ONE Administration ORDERS Category Date Time Status XR chest portable Stat Exams 01/13/19 23:02 Taken - ECG Data Tracing #1 EKG interpreted by Maxi King MD: Rhythm: Dual-chamber pacemaker, paced rhythm Rate: 70 No evidence of acute ischemia or injury - Physician Consults Physician Consulted: Nicholas Cabrera Time: 00:11 Reason -: Admission Comment/Response: Agrees to admit the patient to the hospital. We discussed the patient's clinical information, including history, exam, laboratory and radiology results and ED course. Per hospital procedure, I will write temporary bridge inpatient orders on the patient. Specific orders requested by the admitting physician: Serial cardiac enzymes Medical Decision Narrative: Prior LH: ANGIOGRAPHIC RESULTS: 1. The left main artery normal 2. The left anterior descending artery has an ostial proximal 70-80% stenosis 3. The circumflex artery is nondominant yet still a large vessel with a mid vessel 40% stenosis 4. The right coronary artery is a dominant vessel and has severe 80% distal stenosis 5. The DAIGLE ventriculogram reveals severe left ventricular dilatation with severely decreased ejection fraction estimated at 25% 6. The left ventricular end-diastolic pressure 25 mmHg IMPRESSION: 1. Severe 2 vessel coronary artery disease as described above 2. Successful stenting of the ostial proximal LAD severe disease reduced to 0% with 1 drug-eluting stent 3. Successful stenting of the distal dominant right coronary artery severe disease reduced to 0% with 1 drug-eluting stent 4. Severe left ventricular dysfunction with severe left ventricular dilatation and elevated LVEDP PLAN: 1. Aspirin and Plavix combined with anticoagulation for atrial fibrillation flutter 2. Standard therapy for systolic heart failure 3. Lifevest should be considered 4. Avoidance of tobacco products 5. Cardiac rehabilitation 6. I would recommend LASHAUN with cardioversion tomorrow prior to discharge home Dictated By: James Watkins MD Signed By: <Electronically signed by James Watkins MD in OV> 08/25/18 1210 General Adult HPI - General Stated complaint: chest pain Time Seen by Provider: 01/13/19 22:59 - History of Present Illness HPI narrative: 2-3-day history of intermittent pain in his right infraclavicular area. Seems to be worse when he lays a certain way, but nothing seems to cause it to start or relieve it. Does not worsen with arm movement or breathing. No associated shortness of breath, nausea, or diaphoresis. The pain feels the same as the pain he had which caused him to have cardiac stents. No trauma. Had another ep isode of pain tonight that started around 9 PM. It was still present on arrival, but resolved with nitroglycerin prior to my evaluation. - Related Data Home Medications Medication Instructions Recorded Confirmed Citalopram Hydrobromide 20 mg PO DAILY 08/24/18 10/24/18 [Citalopram HBr] Pantoprazole Sodium [Protonix 40mg 40 mg PO DAILY 08/24/18 10/24/18 tablet] Venlafaxine HCl [Venlafaxine HCl 37.5 mg PO DAILY 08/24/18 10/24/18 ER] Clopidogrel Bisulfate [Plavix 75mg 75 mg PO DAILY 09/20/18 10/24/18 Tab] Digoxin [Digoxin 0.25mg Tablet] 250 mcg PO DAILY 09/20/18 10/24/18 LORazepam [Ativan 1mg tablet] 0.5 mg PO BID 09/20/18 10/24/18 Furosemide [Lasix 20mg tablet] 20 mg PO BIDL 10/07/18 10/24/18 hydrocodone 10 mg-acetaminophen 1 tab PO Q6H PRN 5 Days #20 tab 10/18/18 10/24/18 325 mg tablet Bisoprolol Fumarate [Bisoprolol 10 mg PO BID 10/24/18 10/24/18 10mg Tablet] Lisinopril/Hydrochlorothiazide 1 tab PO DAILY 10/24/18 10/24/18 [Lisinopril-Hctz 10-12.5 mg Tab] Previous Rx's Medication Instructions Recorded Loperamide HCl [Imodium 2 mg 2 mg PO Q4-6H #20 capsule 10/24/18 capsule] Ondansetron HCl [Zofran 8mg Tab] 8 mg PO BID #10 tab 10/24/18 Allergies Allergy/AdvReac Type Severity Reaction Status Date / Time codeine [CODEINE] Allergy Unknown I-RASH Verified 10/24/18 11:10 [facility] History - Hepatitis A Screen Attestation statement:: This patient has been screened for Hepatitis A risk factors. I have reviewed the patient's past medical history: Yes Medical History: Reports:: Arrhythmia, Atrial Fibrillation (One episode several months ago, spontaneously resolved), Congestive Heart Failure, Dementia, Depression, Gastroesophageal Reflux Disease(GERD), Hypertension, Internal Pacemaker Denies:: Cancer, Diabetes Mellitus Type 1, Diabetes Mellitus Type 2, MRSA, Seizures Other Medical History: Reports: Anemia (Hemolytic anemia, prednisone responsive, GI workup negative) Laterality Cases: Bilateral: Other Other Surgeries: Yes: Pacemaker, Other (?SX BOTH LEGS, AND L ARM) Amputation: No Fractures: No - Social History Smoking Status: Never smoker Tobacco Type: cigarettes Alcohol Intake: never Alcohol Intake Frequency:: holidays/special occasions only Substance Use Type: marijuana Occupational Status: retired Housing: house Household Members: none - Psychiatric History Pschychiatric History:: Reports:: Depression Family Hx:: Unable to obtain ROS Obtained: Yes All systems reviewed & no additional complaints - Constitutional Constitutional: Denies fever(s) - Cardiovascular Cardiovascular: Reports chest pain, Denies diaphoresis - Respiratory Respiratory: No cough, No dyspnea - Gastrointestinal Gastrointestingal: Denies: abdominal pain, nausea, vomiting Physical Exam - General General appearance: alert, in no apparent distress - Head Head exam: atraumatic, normocephalic - Eye Eye exam: Present: normal appearance, PERRL, EOMI - ENT ENT exam: Present: mucous membranes moist - Neck Neck exam: Present: normal inspection, trachea midline - Chest Chest inspection: Present: normal inspection, symmetric chest wall rise. Absent: tenderness - Respiratory Respiratory exam: Present: normal lung sounds bilaterally. Absent: respiratory distress - Cardiovascular Cardiovascular exam: Present: regular rate, normal rhythm, normal heart sounds - Abdominal Exam Abdominal exam: Present: soft. Absent: distention, tenderness - Extremities Exam Extremities exam: Present: normal inspection, other (Radial pulses 2+ bilaterally. No pain with movement of shoulders.) - Neurological Exam Neurological exam: Present: alert, oriented X3 - Psychiatric Psychiatric exam: Present: normal affect, normal mood - Skin Skin exam: Present: warm, dry
[2019-01-13 23:11] LABS: Basophils # 0.1 K/mm3 (0-0.2); Eosinophils # 0.3 K/mm3 (0.0-0.4); Monocytes # 0.5 K/mm3 (0.1-1.0)
[2019-01-13 23:15] LABS: Basophils % 1.6 % (0.1-2.0); Eosinophils % 6.6 % (0.1-12.0); Hemoglobin 9.1 g/dL (14.1-18.0); Lymphocytes % 21.4 % (10-50); Mean Corpuscular HGB Conc 35.9 g/dL (31.8-35.4); Mean Corpuscular Hemoglobin 39.9 pg (27.0-31.2); Mean Corpuscular Volume 111.1 fl (80-94); Mean Platelet Volume 8.7 fl (7.4-10.4); Monocytes % 9.6 % (1.7-9.3); Neutrophils % 60.7 % (37.0-80.0); Platelet Count 388 K/mm3 (142-424); Red Blood Count 2.28 M/mm3 (4.60-6.20); Red Cell Distribution Width 21.2 % (11.5-17.5); White Blood Count 4.9 K/mm3 (4.8-10.8)
[2019-01-13 23:18] LABS: Hematocrit 25.3 % (42.0-52.0)
[2019-01-13 23:34] LABS: Anion Gap 13.1 mEq/L (5-15); Blood Urea Nitrogen 15 mg/dL (7-18); Calcium 8.5 mg/dL (8.5-10.1); Carbon Dioxide 30 mmol/L (21.0-32.0); Chloride 99 mmol/L (98-107); Digoxin 1.08 ng/mL (0.90-2.00); Sodium 138 mmol/L (136-145)
[2019-01-13 23:36] LABS: Potassium 4.1 mmoL/L (3.5-5.1)
[2019-01-13 23:44] LABS: Glucose 119 mg/dL (74-106)
--- NOTE | 2019-01-14 09:03 | H&P/Discharge Summary ---
General - General Admission date:: 01/14/19 Discharge date: 01/14/19 *Admission Date: 01/14/19 *Chief complaint: Chest pain *History of present illness: 68-year-old white male with known coronary disease, status post successful stenting in August 2018 with excellent flow but residual CHF-who presented to the emergency department with chest pain in the left posterior aspect of his chest that was exacerbated by position changes. He initially told the ER doctor that it felt like the pain with his heart attack, but upon reflection this morning tells me that he thinks it was brought on by emotional encounter with 1 of his children over financial issues. He states that he became very angry and was agitated about the lack of perceived payment to him that he felt was due, and then began to have the pain which then began to ease off after presentation to the emergency department. [facility] History I have reviewed the patient's past medical history: Yes Medical History: Reports:: Arrhythmia, Atrial Fibrillation (One episode several months ago, spontaneously resolved), Congestive Heart Failure, Dementia, Depression, Gastroesophageal Reflux Disease(GERD), Hypertension, Internal Pacemaker Denies:: Cancer, Diabetes Mellitus Type 1, Diabetes Mellitus Type 2, MRSA, Seizures *Have you ever received a pneumonia vaccine?: Yes *Have you received a flu vaccine this season?: Yes Other Medical History: Reports: Anemia (Hemolytic anemia, prednisone responsive, GI workup negative) Laterality Cases: Bilateral: Other Other Surgeries: Yes: Pacemaker, Other (?SX BOTH LEGS, AND L ARM) Amputation: No Fractures: No - *Social History Educational Level: Attended High School Smoking Status: Never smoker Tobacco Type: cigarettes Alcohol Intake: former Alcohol Intake Frequency:: holidays/special occasions only Substance Use Type: former substance user *Occupational Status:: retired Housing: house Household Members: none *Travel in the last 8 weeks: None - Psychiatric History Expresses thoughts of harming self/others: None Suicide Plan Description: No Plan Pschychiatric History:: Reports:: Depression Family Hx:: Non-contributory, Cancer Review of Systems - Review of Systems Review of systems:: pertinent systems reviewed and negative unless documented below Exam Vital signs and Labs for Last 24 Hours: Temp Pulse Resp BP Pulse Ox 97.6 F 70 18 149/47 H 96 01/14/19 04:00 01/14/19 08:00 01/14/19 04:00 01/14/19 04:00 01/14/19 04:00 Laboratory Results - last 24 hr 01/13/19 23:00: WBC 4.9, RBC 2.28 L, Hgb 9.1 L, Hct 25.3 L, MCV 111.1 H, MCH 39.9 H, MCHC 35.9 H, RDW 21.2 H, Plt Count 388, MPV 8.7, Neut % (Auto) 60.7, Lymph % (Auto) 21.4, [place] % (Auto) 9.6 H, Eos % (Auto) 6.6, Baso % (Auto) 1.6, Neut # (Auto) 3.0, Lymph # (Auto) 1.0, [place] # (Auto) 0.5, Eos # (Auto) 0.3, Baso # (Auto) 0.1 01/13/19 23:00: Sodium 138, Potassium 4.1, Chloride 99, Carbon Dioxide 30, Anion Gap 13.1, BUN 15, Creatinine 0.95, Estimated Creat Clear 92, Estimated GFR 79, Est GFR ( Amer) 96, Glucose 119 H, Calcium 8.5, Troponin I < 0.02, Digoxin 1.08 01/14/19 03:20: Troponin I < 0.02 01/14/19 07:30: Troponin I < 0.02 I & O for Last 24 hours: Intake & Output 01/11/19 01/12/19 01/13/19 01/14/19 11:59 11:59 11:59 11:59 Output Total 325 / 325 Balance -325 / -325 Weight 164 lb 1 oz Narrative: Patient is alert. Oriented x3. Afflicted with tangential thinking as usual but at his baseline in regards to psychiatric functioning and reasoning. Oropharynx clear. No JVD. Lungs are clear, heart rate regular with previously noted holosystolic murmur. Abdomen soft and nontender without rebound or guarding. No hepatospleno megaly. No edema or clubbing. Cranial nerves are intact. Hospital Course Hospital Course: Patient was admitted, serial troponins overnight were unremarkable. Patient's telemetry monitoring was unremarkable. This morning patient feels pain-free. Relates the above-noted story and feels that his pain was caused by emotional issues and did not relate to his cardiac status. Plan will be to discharge patient this morning. Discussed cardiac issues that would require return to the emergency department and arrange short-term follow- up in my office to evaluate his need for further cardiac testing. Results Labs on day of discharge: Labs from last 24 hours 01/14/19 01/14/19 01/13/19 07:30 03:20 23:00 WBC RBC Hgb Hct MCV MCH MCHC RDW Plt Count MPV Neut % (Auto) Lymph % (Auto) [place] % (Auto) Eos % (Auto) Baso % (Auto) Neut # (Auto) Lymph # (Auto) [place] # (Auto) Eos # (Auto) Baso # (Auto) Sodium 138 Potassium 4.1 Chloride 99 Carbon Dioxide 30 Anion Gap 13.1 BUN 15 Creatinine 0.95 Estimated Creat Clear 92 Estimated GFR 79 Est GFR ( Amer) 96 Glucose 119 H Calcium 8.5 Troponin I < 0.02 < 0.02 < 0.02 Digoxin 1.08 01/13/19 23:00 WBC 4.9 RBC 2.28 L Hgb 9.1 L Hct 25.3 L MCV 111.1 H MCH 39.9 H MCHC 35.9 H RDW 21.2 H Plt Count 388 MPV 8.7 Neut % (Auto) 60.7 Lymph % (Auto) 21.4 [place] % (Auto) 9.6 H Eos % (Auto) 6.6 Baso % (Auto) 1.6 Neut # (Auto) 3.0 Lymph # (Auto) 1.0 [place] # (Auto) 0.5 Eos # (Auto) 0.3 Baso # (Auto) 0.1 Sodium Potassium Chloride Carbon Dioxide Anion Gap BUN Creatinine Estimated Creat Clear Estimated GFR Est GFR ( Amer) Glucose Calcium Troponin I Digoxin DS: Diagnosis - Discharge Diagnosis (1) Chest pain Status: Resolved Discharge Medications - Medications for Discharge Home Medication List at Discharge: No Action hydrocodone 10 mg-acetaminophen 325 mg tablet 1 tab PO Q6H PRN 5 Days #20 tab PRN Reason: pain Pantoprazole Sodium [Protonix 40mg tablet] 40 mg PO DAILY Venlafaxine HCl [Venlafaxine HCl ER] 37.5 mg PO DAILY Digoxin [Digoxin 0.25mg Tablet] 250 mcg PO DAILY Clopidogrel Bisulfate [Plavix 75mg Tab] 75 mg PO DAILY LORazepam [Ativan 1mg tablet] 0.5 mg PO BID Lisinopril/Hydrochlorothiazide [Lisinopril-Hctz 10-12.5 mg Tab] 1 tab PO DAILY Bisoprolol Fumarate [Bisoprolol 10mg Tablet] 10 mg PO BID Citalopram Hydrobromide [Citalopram HBr] 20 mg PO DAILY Furosemide [Lasix 20mg tablet] 20 mg PO BIDL Loperamide HCl [Imodium 2 mg capsule] 2 mg PO Q4-6H #20 capsule Ondansetron HCl [Zofran 8mg Tab] 8 mg PO BID #10 tab Disposition Disposition: Home, Self-Care
== END 2019-01-14 09:49 | disposition home or self-care (01) ==
LOC: 2ND 22:48 → ER 22:48 → 2ND 01-14 00:50
PROVIDERS: ADMIT Family Medicine; ATTEND Internal Medicine Adolescent Medicine
CPT/HCPCS: 36415; 71010; 71045; 80048; 80162; 84484; 85025; 93005; 99284; G0378

== ENCOUNTER → 2019-02-28 10:15 | Outpatient (CLI) | payer MEDICARE, SELFPAY ==
[2019-02-28 10:38] LABS: Basophils # 0.1 K/mm3 (0-0.2); Basophils % 1.5 % (0.1-2.0); Eosinophils # 0.2 K/mm3 (0.0-0.4); Eosinophils % 3.9 % (0.1-12.0); Hematocrit 24.2 % (42.0-52.0); Hemoglobin 8.6 g/dL (14.1-18.0); Lymphocytes # 0.8 K/mm3 (0.7-4.5); Mean Corpuscular HGB Conc 35.3 g/dL (31.8-35.4); Mean Corpuscular Hemoglobin 39.5 pg (27.0-31.2); Mean Corpuscular Volume 111.7 fl (80-94); Mean Platelet Volume 9.8 fl (7.4-10.4); Monocytes # 0.4 K/mm3 (0.1-1.0); Monocytes % 9.5 % (1.7-9.3); Neutrophils # 2.5 K/mm3 (1.8-7.8); Neutrophils % 64.1 % (37.0-80.0); Platelet Count 326 K/mm3 (142-424); Red Blood Count 2.17 M/mm3 (4.60-6.20); Red Cell Distribution Width 18.7 % (11.5-17.5); White Blood Count 3.8 K/mm3 (4.8-10.8)
[2019-02-28 11:16] LABS: Anion Gap 10.9 mEq/L (5-15); Blood Urea Nitrogen 22 mg/dL (7-18); Calcium 8.6 mg/dL (8.5-10.1); Carbon Dioxide 31 mmol/L (21.0-32.0); Chloride 101 mmol/L (98-107); Creatinine,Serum 1.35 mg/dL (0.70-1.30); Estimated Glomerular Filt Rate 53 ml/min (>60); GFR (African American) 64 ML/MIN (>60); Glucose 139 mg/dL (74-106); Sodium 139 mmol/L (136-145)
[2019-02-28 11:23] LABS: Potassium 3.9 mmoL/L (3.5-5.1)
== END ==
PROVIDERS: Urology; Visit Provider Internal Medicine
DX: D64.9 Anemia, unspecified (principal); I48.91 Unspecified atrial fibrillation; D61.818 Other pancytopenia
CPT/HCPCS: 36415; 80048; 85025

== ENCOUNTER → 2019-10-02 16:55 | Outpatient (CLI) | payer MEDICARE, SELFPAY ==
[2019-10-02 17:12] LABS: Basophils % 0.8 % (0.1-2.0); Eosinophils # 0.2 K/mm3 (0.0-0.4); Hematocrit 35.5 % (42.0-52.0); Hemoglobin 11.5 g/dL (14.1-18.0); Lymphocytes # 0.7 K/mm3 (0.7-4.5); Lymphocytes % 13.2 % (10-50); Mean Corpuscular HGB Conc 32.3 g/dL (31.8-35.4); Mean Corpuscular Hemoglobin 36.9 pg (27.0-31.2); Mean Corpuscular Volume 114.1 fl (80-94); Mean Platelet Volume 9.7 fl (7.4-10.4); Monocytes # 0.5 K/mm3 (0.1-1.0); Monocytes % 9.7 % (1.7-9.3); Neutrophils # 4.1 K/mm3 (1.8-7.8); Neutrophils % 73.4 % (37.0-80.0); Platelet Count 297 K/mm3 (142-424); Red Blood Count 3.11 M/mm3 (4.60-6.20); Red Cell Distribution Width 17.2 % (11.5-17.5); White Blood Count 5.6 K/mm3 (4.8-10.8)
[2019-10-02 19:00] LABS: Alanine Aminotransferase 72 U/L (12-78); Albumin Level 4.1 gm/dL (3.4-5.0); Albumin/Globulin Ratio 1.6 (1.1-1.8); Alkaline Phosphatase 154 U/L (46-116); Anion Gap 11.3 mEq/L (5-15); Aspartate Amino Transferase 42 U/L (15-37); Bilirubin,Total 0.6 mg/dL (0.2-1.0); Blood Urea Nitrogen 21 mg/dL (7-18); Calcium 8.6 mg/dL (8.5-10.1); Carbon Dioxide 29 mmol/L (21.0-32.0); Chloride 102 mmol/L (98-107); Creatinine,Serum 1.07 mg/dL (0.70-1.30); Estimated Glomerular Filt Rate 69 ml/min (>60); GFR (African American) 83 ML/MIN (>60); Globulin 2.6 gm/dl (1.3-3.2); Glucose 162 mg/dL (74-106); Potassium 4.3 mmoL/L (3.5-5.1); Sodium 138 mmol/L (136-145); Thyroid Stimulating Hormone 2.51 uIU/ml (0.358-3.740); Total Protein,Serum 6.7 gm/dL (6.4-8.2)
[2019-10-04 11:45] LABS: Vitamin B12 480 pg/mL (232-1245)
== END ==
PROVIDERS: Visit Provider Internal Medicine Adolescent Medicine
DX: D59.1 Other autoimmune hemolytic anemias (principal); R29.6 Repeated falls
CPT/HCPCS: 36415; 80053; 82607; 84443; 85025

== ENCOUNTER → 2019-12-18 12:27 | Outpatient (CLI) | payer MEDICARE, SELFPAY ==
[2019-12-18 13:05] LABS: Basophils # 0.1 K/mm3 (0-0.2); Basophils % 1.2 % (0.1-2.0); Eosinophils # 0.1 K/mm3 (0.0-0.4); Eosinophils % 3.5 % (0.1-12.0); Hematocrit 30.9 % (42.0-52.0); Hemoglobin 9.9 g/dL (14.1-18.0); Lymphocytes # 0.8 K/mm3 (0.7-4.5); Lymphocytes % 19.5 % (10-50); Mean Corpuscular HGB Conc 32.2 g/dL (31.8-35.4); Mean Corpuscular Hemoglobin 33.6 pg (27.0-31.2); Mean Corpuscular Volume 104.4 fl (80-94); Mean Platelet Volume 9.2 fl (7.4-10.4); Monocytes # 0.4 K/mm3 (0.1-1.0); Monocytes % 9.3 % (1.7-9.3); Neutrophils # 2.7 K/mm3 (1.8-7.8); Neutrophils % 66.5 % (37.0-80.0); Platelet Count 240 K/mm3 (142-424); Red Blood Count 2.96 M/mm3 (4.60-6.20); Red Cell Distribution Width 18.3 % (11.5-17.5); White Blood Count 4.1 K/mm3 (4.8-10.8)
[2019-12-18 15:23] LABS: Alanine Aminotransferase 76 U/L (12-78); Albumin Level 3.8 g/dL (3.4-5.0); Albumin/Globulin Ratio 1.5 (1.1-1.8); Alkaline Phosphatase 147 U/L (46-116); Anion Gap 12.3 mEq/L (5-15); Aspartate Amino Transferase 36 U/L (15-37); Bilirubin,Total 0.6 mg/dL (0.2-1.0); Blood Urea Nitrogen 11 mg/dL (7-18); Calcium 8.7 mg/dL (8.5-10.1); Carbon Dioxide 31 mmol/L (21.0-32.0); Chloride 106 mmol/L (98-107); Creatinine,Serum 0.86 mg/dL (0.70-1.30); Estimated Glomerular Filt Rate 88 ml/min (>60); GFR (African American) 107 ML/MIN (>60); Globulin 2.5 gm/dl (1.3-3.2); Glucose 120 mg/dL (74-106); Magnesium 1.7 mg/dL (1.4-2.2); Potassium 4.3 mmoL/L (3.5-5.1); Sodium 145 mmol/L (137-145); Total Protein,Serum 6.3 g/dL (6.4-8.2)
== END ==
PROVIDERS: PCP Internal Medicine Adolescent Medicine; Visit Provider Internal Medicine Adolescent Medicine
DX: R25.2 Cramp and spasm (principal)
CPT/HCPCS: 36415; 80053; 83735; 85025

== ENCOUNTER → 2020-07-23 17:00 | Outpatient (CLI) | payer MEDICARE, SELFPAY ==
[2020-07-23 17:12] LABS: Basophils % 1.1 % (0.1-2.0); Eosinophils # 0.1 K/mm3 (0.0-0.4); Eosinophils % 3.5 % (0.1-12.0); Hematocrit 30.3 % (42.0-52.0); Lymphocytes # 0.8 K/mm3 (0.7-4.5); Lymphocytes % 21.9 % (10-50); Mean Corpuscular HGB Conc 33.1 g/dL (31.8-35.4); Mean Corpuscular Hemoglobin 39.7 pg (27.0-31.2); Monocytes # 0.3 K/mm3 (0.1-1.0); Neutrophils # 2.4 K/mm3 (1.8-7.8); Neutrophils % 65.5 % (37.0-80.0); Platelet Count 286 K/mm3 (142-424); Red Blood Count 2.53 M/mm3 (4.60-6.20); Red Cell Distribution Width 20.4 % (11.5-17.5); White Blood Count 3.7 K/mm3 (4.8-10.8)
[2020-07-23 17:41] LABS: Alanine Aminotransferase 51 U/L (12-78); Albumin Level 4.6 g/dl (3.5-5.0); Albumin/Globulin Ratio 1.8 (1.1-1.8); Alkaline Phosphatase 136 U/L (38-126); Anion Gap 15.3 mEq/L (5-15); Aspartate Amino Transferase 58 U/L (17-59); Bilirubin,Total 1.4 mg/dl (0.2-1.3); Blood Urea Nitrogen 17 mg/dl (9-20); Calcium 9.3 mg/dl (8.4-10.2); Carbon Dioxide 29 mmol/L (22.0-30.0); Chloride 98 mmol/L (98-107); Chol/HDL Ratio 5.7 (1-3.5); Cholesterol 149 mg/dl (140-200); Estimated Glomerular Filt Rate 74 ml/min (>60); GFR (African American) 90 ML/MIN (>60); Globulin 2.5 g/dL (1.3-3.2); Glucose 163 mg/dl (74-100); HDL Cholesterol 26 mg/dl (40-60); Potassium 4.3 mmoL/L (3.5-5.1); Sodium 138 mmol/L (136-145); Total Protein,Serum 7.1 g/dl (6.3-8.2); Triglycerides 303 mg/dl (30-150); VLDL Cholesterol 61 mg/dL (0-40)
[2020-07-23 17:49] LABS: Hemoglobin A1C 4.9 % (4.0-6.0)
[2020-07-23 17:52] LABS: Direct LDL Cholesterol 75.37 mg/dL (100-129)
[2020-07-23 18:12] LABS: Thyroid Stimulating Hormone 3.79 uIU/mL (0.465-4.68)
== END ==
PROVIDERS: Visit Provider Internal Medicine Adolescent Medicine
DX: E11.9 Type 2 diabetes mellitus without complications (principal); E78.5 Hyperlipidemia, unspecified; I10 Essential (primary) hypertension
CPT/HCPCS: 36415; 80053; 80061; 83036; 84443; 85025